=== PATIENT | female | born 1975 | race Caucasian/White ===

== ENCOUNTER 2018-08-28 11:38 | Observation (INO) | payer BC, MEDICAID, OTHER ==
[2018-08-28] VITALS (9 sets, daily range): BP systolic 87–118; BP diastolic 49–69
[~2018-08-28] VITALS: Ht 154.9 cm; Wt 92.3 kg
--- OUTSIDE RECORDS SUMMARY | 2018-08-28 11:45 | XMS REPORT ---
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 596425189 Problem Type 2 diabetes mellitus with other specified complication E11.69 Active 42402820 Problem Hyperlipemia E78.5 Active 00157102 Problem Anxiety F41.9 Active 10270955 Problem Postsurgical hypothyroidism E89.0 Active 28143289 Problem Obesity (BMI 30-39.9) E66.9 Active 310573297 ALLERGIES No Information ENCOUNTERS Encounter Location Date Diagnosis [facility] [address] [id number] [id number] Aug, [facility] [id number], [place] [id number] Jul, [address] [address] [id number], [place] [id number] May, [facility] [address] [facility] [address] [id number], [place] [address] May, Type 2 diabetes mellitus with other specified complication E11.69 ; rat exterminator current use of insulin Z79.4 ; Obesity (BMI 30-39.9) E66.9 and Dietary counseling Z71.3 [facility] [address] [id number], [place] [id number] Apr, Anxiety F41.9 [facility] [place] [address] [id number], [place] [address] Feb, Encounter for immunization Z23 [facility] [address] [id number], [place] [address] Feb, Uncontrolled type 2 diabetes mellitus without complication, without long-term current use of insulin E11.65 [facility] [address] [id number] [place] [id number] 17 Jan, 2018 [facility] [address] [id number], [place] [id number] 14 Jan, 2018 Uncontrolled type 2 diabetes mellitus without complication, without long-term current use of insulin E11.65 ; Hyperlipemia E78.5 ; Hypothyroidism, unspecified E03.9 ; Anxiety F41.9 ; Pain in right foot M79.671 and Pain of left foot M79.672 [facility] [address] [id number], [place] [id number] Jan, [facility] [address] [id number], [place] [id number] Oct, [facility] [address] [id number], [place] [address] Oct, BMI 40.0-44.9, adult Z68.41 ; Dysuria R30.0 ; Uncontrolled type 2 diabetes mellitus without complication, without long-term current use of insulin E11.65 ; Statin intolerance Z78.9 and Dietary counseling Z71.3 [facility] [address] [facility] [address] [id number], [place] [id number] Jul, BMI 40.0-44.9, adult Z68.41 ; Hyperlipemia E78.5 ; Hypothyroidism , unspecified E03.9 ; Uncontrolled type 2 diabetes mellitus without complication , without long-term current use of insulin E11.65 ; Statin intolerance Z78.9 ; Pain of left foot M79.672 and Pain in right foot M79.671 [facility] [address] [id number], [place] [id number] May, Type 2 diabetes mellitus with other specified complication E11.69 [facility] [address] [id number], [place] [address] Apr, [facility] [employer] [address] [id number], [place] [address] Apr, Type 2 diabetes mellitus with other specified complication E11.69 ; Type 2 diabetes mellitus with hyperglycemia E11.65 and skilled nursing current use of insulin Z79.4 [facility] [address] [id number], [place] [address] Mar, Hyperlipemia E78.5 ; Encounter for immunization Z23 and Uncontrolled type 2 diabetes mellitus without complication, without long-term current use of insulin E11.65 [facility] [address] [facility] [address] [id number], [place] [id number] 16 Feb, 2017 [facility] [address] [id number], [place] [address] 15 Jan, 2017 Type II diabetes mellitus E11.9 [facility] [address] [facility] [address] [id number], [place] [id number] Jan, Type II diabetes mellitus E11.9 [facility] [place] [address] [place] [address] AVE [id number], [place] [id number] Dec, [facility] [address] [place] [address] AVE [id number], [place] [address] Dec, Type II diabetes mellitus E11.9 ; Obesity (BMI 30-39.9) E66.9 and Dietary counseling Z71.3 [facility] [address] [id number], [place] [id number] Dec, Dental examination Z01.20 [facility] [place] [address] [place] [address] AVE [id number], [place] [id number] Nov, Acute cystitis without hematuria N30.00 [facility] [address] [facility] [id number], [place] [address] September, Dental examination Z01.20 [facility] [address] [id number], [place] [address] September, Type II diabetes mellitus E11.9 ; Hypothyroidism, unspecified E03.9 ; Hyperlipemia E78.5 ; Dietary counseling Z71.3 and Exercise counseling Z71.89 [facility] [address] [id number], [place] [id number] Jun, [facility] [address] [facility] [id number], [place] [address] May, [facility] [address] [id number], [place] [id number] May, [facility] [address] [id number], [place] [address] May, Type II diabetes mellitus E11.9 [facility] [address] [id number], [place] [address] May, [facility] [address] [id number], [place] [address] May, Postsurgical hypothyroidism E89.0 ; Type II diabetes mellitus E11.9 ; Hyperlipemia E78.5 and Acute non-recurrent maxillary sinusitis J01.[address] [facility] [address] [id number], [place] [address] Apr, [facility] [address] [id number], [place] [address] Mar, Acute nasopharyngitis J00 [facility] [address] [id number], [place] [id number] Jan, Type II diabetes mellitus E11.9 [facility] [address] [id number], [place] [id number] Jan, [facility] [address] [id number], [place] [address] Jan, Dysuria R30.0 ; Right flank pain R10.9 and Urinary frequency R35.0 [facility] [address] [id number], [place] [address] Jan, Adjustment disorder with anxious mood F43.22 [facility] [address] [id number], [place] [address] Jul, Acute non-recurrent pansinusitis J01.40 [facility] [address] [facility] [id number], [place] [address] Jun, [facility] [address] [id number], [place] [id number] Jun, Type II diabetes mellitus E11.9 ; Hyperlipemia E78.5 ; Hypothyroidism, unspecified E03.9 and Obesity E66.9 [facility] [address] [id number], [place] [id number] Feb, Anxiety F41.9 and Adverse reaction to SSRI antidepressant drug T43.225A [facility] HERRERAMAY [address] [place] [address] AVE [id number], [place] [address] Jan, [facility] Mijares[address] [place] [address] AVE [id number], [place] [id number] Jan, Irritability 799.22 ; Well woman exam with routine gynecological exam V72.31 ; Breast cancer screening V76.10 and History of hysterectomy for indication other than malignancy V88.01 [facility] HERRERAMAY [address] [place] [address] AVE [id number], [place] [id number] Dec, Type II diabetes mellitus 250.00 ; Postsurgical hypothyroidism 244.0 ; Right flank pain 789.09 and Obesity 278.00 [facility] HERRERAMAY [address] [place] [address] AVE [id number], [place] [address] September, [facility] [address]00565100[place], [place] [address] September, [facility] [address] [id number], [place] [address] Aug, [facility] [address] [place] [id number] Aug, [facility] [address] [place] [id number] Jul, [facility] [address] [place] [id number]- [address] Jul, [facility] [address] [id number], [place] [address]23- [address] Jul, [facility] [address] [place] [address] Jul, [facility] [place] [facility] [address] [id number] [place] [address] Apr, [facility] [place] [facility] [address] [id number] [place] [address] Apr, [facility] [place] [facility] [address] [id number] [place] [address] Mar, [facility] [place] [facility] [address] [id number] [place] [address] Mar, [facility] [place] [facility] [address] [id number] [place] [address]- [address] Mar, [facility] [place] [facility] [address] [id number] [place] [address]- [address] Mar, [facility] [place] [facility] [address] [id number] [place] [address]- [address] Feb, [facility] [place] [facility] [address] [id number] [place] [address]- [address] Feb, [facility] [place] [facility] [address] [id number] [place] [address]- [address] Feb, [facility] [place] [facility] [address] [facility] [id number] [place] [address]- [address] Feb, [facility] [place] [facility] [address] [id number] [place] [address]- [address] 08 Jan, 2013 [facility] [place] [facility] [address] [id number] [place] [address]- [address] 08 Sep, 2013 [facility] [place] [facility] [address] [id number] [place] [address]- [address] 05 Sep, 2013 [facility] [place] [facility] [address] [id number] [place] [address]- [address] Sep, 2013 [facility] [place] [facility] [address] [id number] [place] [address]- [address] Jan, [facility] [place] [facility] [address] [id number] [place] [address]- [address] Dec, [facility] [place] [facility] [address] [id number] [place] [address]- [address] Dec, [facility] [place] [facility] [address] [id number] [place] [address]- [address] Dec, [facility] [place] [facility] [address] [id number] [place] [address]- [address] Dec, [facility] [place] [facility] [address] [id number] [place] [address]- [address] Oct, [facility] [place] [facility] [address] [id number] [place] [address]- [address] Oct, [facility] [place] [facility] [address] [id number] [place] [address]- [address] Oct, [facility] [place] [facility] [address] [id number] [place] [address]- [address] Oct, [facility] [place] [facility] [address] [id number] [place] [address]- [address] September, [facility] [place] [facility] [address] [id number] [place] [address]- [address] September, [facility] [place] [facility] [address] [id number] [place] [address]- [address] September, [facility] [place] [facility] [address] [id number] [place] [address]- [address] September, [facility] [place] [facility] [address] [id number] [place] [address]- [address] September, [facility] [place] [facility] [address] [id number] [place] [address]- 7[address] September, [facility] [place] [facility] [address] [id number] [place] [address]- [address]598 September, [facility] [place] [facility] [address] [id number][place] [address]20232- [address] September, [facility] [address] [id number] [address] September, [facility] [address] [id number], [place] [address]- [address] September, [facility] [address] [id number], [place] [address] Aug, [facility] [address] [id number], [place] [address] Aug, [facility] [address] [id number], [place] [address] Aug, [facility] [address] [id number], [place] [address] Aug, [facility] [address] [id number], [place] [address] Aug, IMMUNIZATIONS No Known Immunizations SOCIAL HISTORY Never Assessed REASON FOR VISIT EMR-[facility] [place]AN OF CARE VITAL SIGNS MEDICATIONS Unknown Medications RESULTS No Results PROCEDURES No Known procedures INSTRUCTIONS MEDICATIONS ADMINISTERED No Known Medications MEDICAL (GENERAL) HISTORY Type Description Date Medical History Hypothyroidism Medical History type II diabetes Medical History hyperlipidemia Medical History thyroid cancer Surgical History cholecystectomy 1995 Surgical History tonsillectomy and adenoidectomy Surgical History thyroidectomy, complete 2000 Surgical History partial hysterectomy 04/15/12 Surgical History appendectomy 03/2014 Surgical History oral surgery Surgical History lithotripsy 1999 Surgical History dental surgery 2017 Hospitalization History Surgery(s) only Hospitalization History reaction to Paxil 01/31/15 Hospitalization History chest pains nothing was found
--- OUTSIDE RECORDS SUMMARY | 2018-08-28 11:45 | XMS REPORT ---
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 196957680 Problem Type 2 diabetes mellitus with other specified complication E11.69 Active 77589379 Problem Hyperlipemia E78.5 Active 74566652 Problem Anxiety F41.9 Active 35359389 Problem Postsurgical hypothyroidism E89.0 Active 41596581 Problem Obesity (BMI 30-39.9) E66.9 Active [id number] ALLERGIES No Information ENCOUNTERS Encounter Location Date Diagnosis [facility] [address] [id number] [place] [id number] Aug, [facility] [address] [id number] [place] [id number] Jul, [employer] [address] [id number] [place] [id number] May, [facility] [address] [id number] [place] [id number] May, Type 2 diabetes mellitus with other specified complication E11.69 ; middle or intermediate school principal current use of insulin Z79.4 ; Obesity (BMI 30-39.9) E66.9 and Dietary counseling Z71.3 [facility] [address] [id number] [place] [address] Apr, Anxiety F41.9 [facility] [place] [address] [id number] [place] [id number] Feb, Encounter for immunization Z23 [facility] [address] [id number] [place] [id number] Feb, Uncontrolled type 2 diabetes mellitus without complication, without long-term current use of insulin E11.65 [facility] [address] [id number] [place] [id number] 17 Jan, 2018 [facility] [address] [id number] [place] [address] 14 Jan, 2018 Uncontrolled type 2 diabetes mellitus without complication, without long-term current use of insulin E11.65 ; Hyperlipemia E78.5 ; Hypothyroidism, unspecified E03.9 ; Anxiety F41.9 ; Pain in right foot M79.671 and Pain of left foot M79.672 [facility] [address] [id number] [place] [id number] Jan, [facility] [address] [id number] [place] [id number] Oct, [facility] [address] [id number] [place] [address] Oct, BMI 40.0-44.9, adult Z68.41 ; Dysuria R30.0 ; Uncontrolled type 2 diabetes mellitus without complication, without long-term current use of insulin E11.65 ; Statin intolerance Z78.9 and Dietary counseling Z71.3 [facility] Richard Pauer - [address] [id number] [place] [address] Jul, BMI 40.0-44.9, adult Z68.41 ; Hyperlipemia E78.5 ; Hypothyroidism , unspecified E03.9 ; Uncontrolled type 2 diabetes mellitus without complication , without long-term current use of insulin E11.65 ; Statin intolerance Z78.9 ; Pain of left foot M79.672 and Pain in right foot M79.671 [facility] [address] [id number] [place] [id number] May, Type 2 diabetes mellitus with other specified complication E11.69 [facility] [place] [address] [id number] [place] [id number] Apr, [facility]ERSETorch GroupMAY [address] [id number] [place] [address] Apr, Type 2 diabetes mellitus with other specified complication E11.69 ; Type 2 diabetes mellitus with hyperglycemia E11.65 and USP current use of insulin Z79.4 [facility] [address] [id number] [place] [id number] Mar, Hyperlipemia E78.5 ; Encounter for immunization Z23 and Uncontrolled type 2 diabetes mellitus without complication, without long-term current use of insulin E11.65 [facility] [place] [address] [id number] [place] [id number] 16 Feb, 2017 [facility] [address] [id number] [place] [id number] 15 Jan, 2017 Type II diabetes mellitus E11.9 [facility] [place] [address] [id number] [place] [address] Jan, Type II diabetes mellitus E11.9 [facility] [place] [address] [place] [address] AVE [id number] [place] [id number] Dec, [facility] [place] Wireless Generation[address] [place] [address] AVE [id number] [place] [id number] Dec, Type II diabetes mellitus E11.9 ; Obesity (BMI 30-39.9) E66.9 and Dietary counseling Z71.3 [facility] [address] [id number] [place] [id number] Dec, Dental examination Z01.20 [facility] [place] [address] [place] [address] AVE [id number] [place] [id number] Nov, Acute cystitis without hematuria N30.00 [facility] [address] [facility] [id number][place] [address] September, Dental examination Z01.20 [facility] [address] [id number] [place] [id number] September, Type II diabetes mellitus E11.9 ; Hypothyroidism, unspecified E03.9 ; Hyperlipemia E78.5 ; Dietary counseling Z71.3 and Exercise counseling Z71.89 [facility] [address] [id number] [place] [address] Jun, [facility] [address] [facility] [id number], [place] [address] May, [facility] [address] [id number] [place] [id number] May, [facility] [address] [id number] [place] [address] May, Type II diabetes mellitus E11.9 [facility] [address] [id number], [place] [address] May, [facility] [address] [id number] [place] [address] May, Postsurgical hypothyroidism E89.0 ; Type II diabetes mellitus E11.9 ; Hyperlipemia E78.5 and Acute non-recurrent maxillary sinusitis J01.[address] [facility] [address] [id number] [place] [id number] Apr, [facility] [address] [id number] [place] [id number] Mar, Acute nasopharyngitis J00 [facility] [address] [id number] [place] [address] Jan, Type II diabetes mellitus E11.9 [facility] [address] [id number] [place] [id number] Jan, [facility] [address] [id number] [place] [address] Jan, Dysuria R30.0 ; Right flank pain R10.9 and Urinary frequency R35.0 [facility] [address] [id number] [place] [id number] Jan, Adjustment disorder with anxious mood F43.22 [facility] [address] [id number] [place] [address] Jul, Acute non-recurrent pansinusitis J01.40 [facility] [address] [facility] [id number], [place] [address] Jun, [facility] [address] [id number] [place] [id number] Jun, Type II diabetes mellitus E11.9 ; Hyperlipemia E78.5 ; Hypothyroidism, unspecified E03.9 and Obesity E66.9 [facility] [address] [id number] [place] [id number] Feb, Anxiety F41.9 and Adverse reaction to SSRI antidepressant drug T43.225A [facility] HERRERAMAY [address]ana[address] [place] [address] AVE [id number] [place] [id number] Jan, [facility] Mijares[address] [place] [address] AVE [id number] [place] [address] Jan, Irritability 799.22 ; Well woman exam with routine gynecological exam V72.31 ; Breast cancer screening V76.10 and History of hysterectomy for indication other than malignancy V88.01 [facility] HERRERAMAY [address]ana[address] [place] [address] AVE [id number] [place] [id number] Dec, Type II diabetes mellitus 250.00 ; Postsurgical hypothyroidism 244.0 ; Right flank pain 789.09 and Obesity 278.00 [facility] HERRERAMAY [address]ana[address] [place] [address] AVE [id number] [place] [id number] September, [facility] [address]00565100[place] [address] September, [facility] [address] [id number], [place] [address] Aug, [facility] [address] [place] [id number] Aug, [facility] [address] [place] [id number] Jul, [facility] [address] [place] [id number] Jul, [facility] [address] [id number] [address]- [address] Jul, [facility] [address] [address] Jul, [facility] [place] [facility] [address] [id number] [place] [address] Apr, [facility] [place] [facility] [address] [id number] [place] Apr, [facility] [place] [facility] [address] [id number] [place] [address] Mar, [facility] [place] [facility] [address] [id number] [place] [address] Mar, [facility] [place] [facility] [address] [id number] [place] [address] Mar, [facility] [place] [facility] [address] [id number] [place] [address]- [address] Mar, [facility] [place] [facility] [address] [id number] [place] [address]- [address] Feb, [facility] [place] [facility] [address] [id number] [place] [address]- [address] Feb, [facility] [place] [facility] [address] [id number] [place] [address] Feb, [facility] [place] [facility] [address] [facility] [id number] [place] [address]- [address] Feb, [facility] [place] [facility] [address] [id number] [place] [address] 08 Jan, 2013 [facility] [place] [facility] [address] [id number] [place] [address] 08 Sep, 2013 [facility] [place] [facility] [address] [id number] [place] [address]- [address] 05 Sep, 2013 [facility] [place] [facility] [address] [id number] [place] [address]- [address] Sep, 2013 [facility] [place] [facility] [address] [id number] [place] [address]- [address] Jan, [facility] [place] [facility] [address] [id number] [place] [address]- [address] Dec, [facility] [place] [facility] [address] [id number] [place] [address] Dec, [facility] [place] [facility] [address] [id number] [place] [address]- [address] Dec, [facility] [place] [facility] [address] [id number] [place] [address] Dec, [facility] [place] [facility] [address] [id number] [place] [address]- [address] Oct, [facility] [place] [facility] [address] [id number] [place] [address] Oct, [facility] [place] [facility] [address] [id number] [place] [address]- [address] Oct, [facility] [place] [facility] [address] [id number] [place] [address]- [address] Oct, [facility] [place] [facility] [address] [id number] [place] [address] September, [facility] [place] [facility] [address] [id number] [place] [address]- [address] September, [facility] [place] [facility] [address] [id number] [place] [address]- [address] September, [facility] [place] [facility] [address] [id number] [place] [address]- [address] September, [facility] [place] [facility] [address] [id number] [place] [address] September, [facility] [place] [facility] [address] [id number] [place] [address]- [address] September, [facility] [place] [facility] [address] [id number] [place] [address] September, [facility] [place] [facility] [address] [id number], [place] 480[address]- [address] September, [facility] [address] [id number], [place] [address] September, [facility] [address] [id number] [address] September, [facility] [address] [id number], [place] [address] Aug, [facility] [address] [id number], [place] [address] Aug, [facility] [address] [id number], [place] [address] Aug, [facility] [address] [id number], [place] [address] Aug, [facility] [address] [id number], [place] [address] Aug, IMMUNIZATIONS No Known Immunizations SOCIAL HISTORY Never Assessed REASON FOR VISIT EMR-[facility] PLAN OF CARE VITAL SIGNS MEDICATIONS Unknown [...]
--- OUTSIDE RECORDS SUMMARY | 2018-08-28 11:45 | XMS REPORT ---
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.4 Active 658759495 Problem Type 2 diabetes mellitus with other specified complication E11.69 Active 89229241 Problem Hyperlipemia E78.5 Active 12821837 Problem Anxiety F41.9 Active 64184499 Problem Postsurgical hypothyroidism E89.0 Active 12784529 Problem Obesity (BMI 30-39.9) E66.9 Active 420037389 ALLERGIES No Information ENCOUNTERS Encounter Location Date Diagnosis [facility] [address] [id number][place] [id number] Aug, [facility] [id number], [place] [id number] Jul, [address] [id number], [place] [id number] May, [facility] [address] [facility] [address] [id number], [place] [address] May, Type 2 diabetes mellitus with other specified complication E11.69 ; terminal make up operator current use of insulin Z79.4 ; Obesity (BMI 30-39.9) E66.9 and Dietary counseling Z71.3 [facility] [address] [id number], [place] [id number] Apr, Anxiety F41.9 [facility] [place] [address] [id number] [place] [address] Feb, Encounter for immunization Z23 [facility] [address] [id number], [place] [address] Feb, Uncontrolled type 2 diabetes mellitus without complication, without long-term current use of insulin E11.65 [facility] [address] [id number] [place] [id number] 17 Jan, 2018 [facility] [address] [id number], [place] [id number] 14 Jan, 2018 Uncontrolled type 2 diabetes mellitus without complication, without long-term current use of insulin E11.65 ; Hyperlipemia E78.5 ; Hypothyroidism, unspecified E03.9 ; Anxiety F41.9 ; Pain in right foot M79.671 and Pain of left foot M79.672 [facility] [address] [id number], [place] [id number] Jan, [facility] [address] [id number], [place] [id number] Oct, [facility] [address] [id number], [place] [address] Oct, BMI 40.0-44.9, adult Z68.41 ; Dysuria R30.0 ; Uncontrolled type 2 diabetes mellitus without complication, without long-term current use of insulin E11.65 ; Statin intolerance Z78.9 and Dietary counseling Z71.3 [facility] [address] [facility] [address] [id number], [place] [address] Jul, BMI 40.0-44.9, adult Z68.41 ; Hyperlipemia E78.5 ; Hypothyroidism , unspecified E03.9 ; Uncontrolled type 2 diabetes mellitus without complication , without long-term current use of insulin E11.65 ; Statin intolerance Z78.9 ; Pain of left foot M79.672 and Pain in right foot M79.671 [facility] [address] [id number], [place] [id number] May, Type 2 diabetes mellitus with other specified complication E11.69 [facility] [address] [id number], [place] [address] Apr, [facility] [address] [id number], [place] [id number] Apr, Type 2 diabetes mellitus with other specified complication E11.69 ; Type 2 diabetes mellitus with hyperglycemia E11.65 and FDC current use of insulin Z79.4 [facility] [address] [id number], [place] [id number] Mar, Hyperlipemia E78.5 ; Encounter for immunization Z23 and Uncontrolled type 2 diabetes mellitus without complication, without long-term current use of insulin E11.65 [facility] [address] [facility] [address] [id number], [place] [id number] 16 Feb, 2017 [facility] [address] [id number], [place] [address] 15 Jan, 2017 Type II diabetes mellitus E11.9 [facility] [address] [facility] [address] [id number], [place] [id number] Jan, Type II diabetes mellitus E11.9 [facility] [place] [address] [place] [address] AVE [id number], [place] [id number] Dec, [facility] [employer] [address] [place] [address] AVE [id number], [place] [id number] Dec, Type II diabetes mellitus E11.9 ; Obesity (BMI 30-39.9) E66.9 and Dietary counseling Z71.3 [facility] [address] [id number], [place] [id number] Dec, [facility] examination Z01.20 [facility] [place] [address] [place] [address] AVE [id number], [place] [id number] Nov, Acute cystitis without hematuria N30.00 [facility] [address] [facility] [id number], [place] [id number] September, Dental examination Z01.20 [facility] [address] [id number], [place] [address] September, Type II diabetes mellitus E11.9 ; Hypothyroidism, unspecified E03.9 ; Hyperlipemia E78.5 ; Dietary counseling Z71.3 and Exercise counseling Z71.89 [facility] [address] [id number], [place] [address] Jun, [facility] [address] [facility] [id number], [place] [address] May, [facility] [address] [id number], [place] [address] May, [facility] [address] [id number], [place] [id number] May, Type II diabetes mellitus E11.9 [facility] [address] [id number], [place] [address] May, [facility] [address] [id number], [place] [id number] May, Postsurgical hypothyroidism E89.0 ; Type II diabetes mellitus E11.9 ; Hyperlipemia E78.5 and Acute non-recurrent maxillary sinusitis J01.[address] [facility] [address] [id number], [place] [id number] Apr, [facility] [address] [id number], [place] [id number] Mar, Acute nasopharyngitis J00 [facility] [address] [id number], [place] [address]874056[address] Jan, Type II diabetes mellitus E11.9 [facility] [address] [id number], [place] [address]33125[address] Jan, [facility] [address] [id number], [place] [address]79[address] Jan, Dysuria R30.0 ; Right flank pain R10.9 and Urinary frequency R35.0 [facility] [address] [id number], [place] [address] Jan, Adjustment disorder with anxious mood F43.22 [facility] [address] [id number], [place] [address]2022 Jul, Acute non-recurrent pansinusitis J01.40 [facility] [address] [facility] [id number], [place] [address] Jun, [facility] [address] [id number], [place] [id number] Jun, Type II diabetes mellitus E11.9 ; Hyperlipemia E78.5 ; Hypothyroidism, unspecified E03.9 and Obesity E66.9 [facility] [address] [id number], [place] [id number] Feb, Anxiety F41.9 and Adverse reaction to SSRI antidepressant drug T43.225A [facility] HERRERAMAY [address] [place] [address] AVE [id number], [place] [id number] Jan, [facility] Mijares[address] [place] [address] AVE [id number], [place] [address]36895896 Jan, Irritability 799.22 ; Well woman exam with routine gynecological exam V72.31 ; Breast cancer screening V76.10 and History of hysterectomy for indication other than malignancy V88.01 [facility] HERRERAMAY [address] [place] [address] AVE [id number], [place] [id number] Dec, Type II diabetes mellitus 250.00 ; Postsurgical hypothyroidism 244.0 ; Right flank pain 789.09 and Obesity 278.00 [facility] HERRERAMAY [address] [place] [address] A[address] [id number], [place] [address]694[address] September, [facility] [address]00565100[place], [place] [address]- [address] September, [facility] [address] [id number], [place] [address]- [address] Aug, [facility] [address] [place] [id number] Aug, [facility] [address] [place] [id number]- 8670 Jul, [facility] [address] [place] [id number]- [address]25 Jul, [facility] [address] [id number], [place] [address]21- [address] Jul, [facility] [address] [place] [address] Jul, [facility] [place] [facility] [address] [id number] [place] [address] Apr, [facility] [place] [facility] [address] [id number] [place]- [address] Apr, [facility] [place] [facility] [address] [id number] [place] [address] Mar, [facility] [place] [facility] [address] [id number] [place] [address] Mar, [facility] [place] [facility] [address] [id number] [place] [address] Mar, [facility] [place] [facility] [address] [id number] [place] [address]- [address]77 Mar, [facility] [place] [facility] [address] [id number] [place] [address]- [address]241 Feb, [facility] [place] [facility] [address] [id number] [place] [address]- [address]20 Feb, [facility] [place] [facility] [address] [id number] [place] [address]- 36[address] Feb, [facility] [place] [facility] [address] [facility] [id number] [place] [address]- [address] Feb, [facility] [place] [facility] [address] [id number] [place] [address]- [address] 08 Jan, 2013 [facility] [place] [facility] [address] [id number] [place] [address]- [address] 08 Sep, 2013 [facility] [place] [facility] [address] [id number] [place] [address]- 1873 05 Sep, 2013 [facility] [place] [facility] [address] [id number] [place] [address]- [address] Sep, 2013 [facility] [place] [facility] [address] [id number] [place] [address]- 6216 Jan, [facility] [place] [facility] [address] [id number] [place] [address]- 8523 Dec, [facility] [place] [facility] [address] [id number] [place] [address]- [address]672 Dec, [facility] [place] [facility] [address] [id number] [place] [address]- [address]34 Dec, [facility] [place] [facility] [address] [id number] [place] [address]- [address]883 Dec, [facility] [place] [facility] [address] [id number] [place] [address]- [address]208 Oct, [facility] [place] [facility] [address] [id number] [place] [address]- 3578 Oct, [facility] [place] [facility] [address] [id number] [place] [address]- [address] Oct, [facility] [place] [facility] [address] [id number] [place] [address]- [address] Oct, [facility] [place] [facility] [address] [id number] [place] [address]- [address]874 September, [facility] [place] [facility] [address] [id number] [place] [address]- 9066 September, [facility] [place] [facility] [address] [id number] [place] [address]- 1624 September, [facility] [place] [facility] [address] [id number] [place] [address]- 4549 September, [facility] [place] [facility] [address] [id number] [place] [address]- 4815 September, [facility] [place] [facility] [address] [id number] [place] [address]- [address]43 September, [facility] [place] [facility] [address] [id number] [place] [address]- 8670 September, [facility] [place] [facility] [address] [id number], [place] [address]- [address] September, [facility] [address] [id number], [place] 160[address]- [address] September, [facility] [address] [id number], [place] [address]- [address] September, [facility] [address] [id number], [place] [address] Aug, [facility] [address]00565100[place], [place] [address] Aug, [facility] [address] [id number], [place] [address] Aug, [facility] [address]65100[place], [place] [address] Aug, [facility] [address] [id number], [place] [address] Aug, IMMUNIZATIONS No Known Immunizations SOCIAL HISTORY Never Assessed REASON FOR VISIT EMR-[facility] [place] OF CARE VITAL SIGNS MEDICATIONS Medication Instructions Dosage Frequency Start Date End Date Duration Status Amaryl 2 mg take by Oral route TAKE ONE TAB IN AM AND TAKE 1/2 TAB AT DINNER Jul, Active Synthroid 150 mcg take 1 tablet (150 mcg) by oral route once daily Jul, Active Lizette-D 24 Hour by oral route Dec, Active Pyridium 200 mg 1 tablet by Oral route 3 times per day for 3 day(s) Take Endosee meals for bladder pain Jan, Active Lisinopril 2.5 mg 1 tablet by Oral route 1 time per day Jul, Active Fioricet 50-325-40 mg 1-2 tablet by Oral route every 6 hours PRN not to exceed 6 tablets/day, 10/week Jan, Active Lovastatin 20 mg 1 tablet by Oral route 1 time per day Dec, Active Ibuprofen by oral route Dec, Active Cipro 500 mg 1 tablet by Oral route every 12 hours for 7 day(s) Jan Active RESULTS No Results PROCEDURES No Known procedures [...]
--- OUTSIDE RECORDS SUMMARY | 2018-08-28 11:46 | XMS REPORT ---
Author Author TOBY MILLS [facility] Address [address] [place] [address] Care Team Providers Care Redipper Name Role Phone TOBY MILLS Unavailable PROBLEMS Type Condition ICD9-CM Code GEH63-QA Code Onset Dates Condition Status SNOMED Code Problem Postsurgical hypothyroidism E89.0 Active 41449489 Problem Hypothyroidism, unspecified E03.9 Active 33096310 Problem Type II diabetes mellitus E11.9 Active 34019026 Problem Statin intolerance Z78.9 Active 01296378 Problem Hyperlipemia E78.5 Active 63373111 Problem Anxiety F41.9 Active 99243865 Problem Type 2 diabetes mellitus with hyperglycemia E11.65 Active 028990807291542 Problem Type 2 diabetes mellitus with other specified complication E11.69 Active 98489060 Problem Obesity (BMI 30-39.9) E66.9 Active 232572443 Problem Adjustment disorder with anxious mood F43.22 Active 19448343 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 789269030 Problem Uncontrolled type 2 diabetes mellitus without complication, without long-term current use of insulin E11.65 Active 180326171 ALLERGIES Substance Reaction Event Type Date Status Victoza Thyroid Cancer Drug Allergy Jan, Active Zoloft suicidal thoughts Drug Allergy Jan, Active Penicillin G Benzathine rash Drug Allergy Jan, Active Paxil suicidal thoughts Drug Allergy Jan, Active Metformin HCl chest pain Drug Allergy Jan, Active ENCOUNTERS Encounter Location Date Diagnosis [place] [id number] [facility] [address] [id number] [place] [id number] Jan, [address] [id number][place] [id number] Jan, Uncontrolled type 2 diabetes mellitus without complication, without long-term current use of insulin E11.65 ; Hyperlipemia E78.5 ; Hypothyroidism, unspecified E03.9 ; Anxiety F41.9 ; Pain in right foot M79.671 and Pain of left foot M79.672 [facility] [id number][place] [id number] Jan, ECTOR Isabel [facility] [address] [id number][place] [id number] Oct, [facility] [id number][place] [id number] Oct, BMI 40.0-44.9, adult Z68.41 ; Dysuria R30.0 ; Uncontrolled type 2 diabetes mellitus without complication, without long-term current use of insulin E11.65 ; Statin intolerance Z78.9 and Dietary counseling Z71.3 [facility] [id number][place] [id number] Jul, BMI 40.0-44.9, adult Z68.41 ; Hyperlipemia E78.5 ; Hypothyroidism , unspecified E03.9 ; Uncontrolled type 2 diabetes mellitus without complication , without long-term current use of insulin E11.65 ; Statin intolerance Z78.9 ; Pain of left foot M79.672 and Pain in right foot M79.671 [facility] [id number][place] [id number] May, Type 2 diabetes mellitus with other specified complication E11.69 [facility] [id number][place] [id number] Apr, [facility] [id number], [place] [id number] Apr, Type 2 diabetes mellitus with other specified complication E11.69 ; Type 2 diabetes mellitus with hyperglycemia E11.65 and snf current use of insulin Z79.4 [facility] [employer]Nicole [facility] [id number][place] [id number] Mar, Hyperlipemia E78.5 ; Encounter for immunization Z23 and Uncontrolled type 2 diabetes mellitus without complication, without long-term current use of insulin E11.65 [facility] [employer]Nicole [facility] [id number][place] [id number] Feb, [facility] [address] [id number], [place] [id number] Jan, Type II diabetes mellitus E11.9 [facility] [address] [id number], [place] [id number] Jan, Type II diabetes mellitus E11.9 [facility] [address] [id number], [place] [id number] Dec, [facility] [address] [id number][place] [id number] Dec, Type II diabetes mellitus E11.9 ; Obesity (BMI 30-39.9) E66.9 and Dietary counseling Z71.3 [facility] [address] [id number], [place] [id number] Dec, Dental examination Z01.20 [facility] [address] [id number], [place] [id number] Nov, Acute cystitis without hematuria N30.00 [facility] [address] [facility] [id number], [place] [id number] September, Dental examination Z01.20 [facility] [address] [id number], [place] [id number] September, Type II diabetes mellitus E11.9 ; Hypothyroidism, unspecified E03.9 ; Hyperlipemia E78.5 ; Dietary counseling Z71.3 and Exercise counseling Z71.89 [facility] [address] [id number], [place] [id number] Jun, [facility] [address] [id number], [place] [address] May, [facility] [address] [id number], [place] [id number] May, [facility] [address] [id number], [place] [id number] May, Type II diabetes mellitus E11.9 [facility] [address]00565100[place] [address] May, [facility] [address] [id number], [place] [id number] May, Postsurgical hypothyroidism E89.0 ; Type II diabetes mellitus E11.9 ; Hyperlipemia E78.5 and Acute non-recurrent maxillary sinusitis J01.[address] [facility] [address] [id number], [place] [id number] Apr, [facility] [address] [id number], [place] [id number] Mar, Acute nasopharyngitis J00 [facility] [address] [id number], [place] [id number] Jan, Type II diabetes mellitus E11.9 [facility] [address] [place] [address] AVE [id number], [place] [id number] Jan, [facility] [address] [id number], [place] [id number] Jan, Dysuria R30.0 ; Right flank pain R10.9 and Urinary frequency R35.0 [facility] [address] [id number], [place] [id number] Jan, Adjustment disorder with anxious mood F43.22 [facility] [place] [address] [place] [address] AVE [id number], [place] [id number] Jul, Acute non-recurrent pansinusitis J01.40 [facility] [address] [id number], [place] [address] Jun, [facility] [address] [id number], [place] [id number] Jun, Type II diabetes mellitus E11.9 ; Hyperlipemia E78.5 ; Hypothyroidism, unspecified E03.9 and Obesity E66.9 [facility] [address] [id number], [place] [id number] Feb, Anxiety F41.9 and Adverse reaction to SSRI antidepressant drug T43.225A [facility] [address] [facility] [address] [id number], [place] [id number] Jan, [facility] [address] [facility] [address] [id number], [place] [address] Jan, Irritability 799.22 ; Well woman exam with routine gynecological exam V72.31 ; Breast cancer screening V76.10 and History of hysterectomy for indication other than malignancy V88.01 [facility] [address] [facility] [address] [id number], [place] [id number] Dec, Type II diabetes mellitus 250.00 ; Postsurgical hypothyroidism 244.0 ; Right flank pain 789.09 and Obesity 278.00 [facility] [address]ana[address] [place] [address] AVE [id number], [place] [id number] September, [facility] [id number] [place] [address] September, [facility] [id number] [place] [address] Aug, [facility] [id number] [place] [address] Aug, [facility] [id number] [place] [address] Jul, [facility] [address]00565100[place], [place] [address] Jul, [facility] [id number] [place] [address] Jul, [facility] [id number] [place] [address]- 6586 Jul, [facility] [id number] [place] [address] Apr, [facility] [address]00565100[place], [place] [address] Apr, [facility] [id number] [place] [address] Mar, [facility] [place] [facility] [address] [id number] [place] [address] Mar, [facility] [place] [facility] [address] [id number] [place] [address] Mar, [facility] [place] [facility] [address] [id number] [place] [address] Mar, [facility] [place] [facility] [address] [id number] [place] [address] Feb, [facility] [place] [facility] [address] [id number] [place] [address] Feb, [facility] [place] [facility] [address] [id number] [place] [address] Feb, [facility] [place] [facility] [address] [id number] [place] [address]- [address] Feb, [facility] [place] [facility] [address] [id number] [place] [address] 08 Jan, 2014 [facility] [place] [facility] [address] [id number] [place] [address]- [address] 08 Jan, 2014 [facility] [place] [facility] [address] [id number] [place] [address]- [address] 05 Jan, 2014 [facility] [place] [facility] [address] [id number], [place] [address]- [address] Jan, [facility] [place] [facility] [address] [id number], [place] [address] Jan, [facility] [place] [facility] [address] [id number] [place] [address]- [address] Dec, [facility] [place] [facility] [address] [id number] [place] [address]- 64[address] Dec, [facility] [place] [facility] [address] [id number] [place] [address]- [address] Dec, [facility] [place] [facility] [address] [id number] [place] [address]- 6[address] Dec, [facility] [place] [facility] [address] [id number] [place] [address]- [address] Oct, [facility] [place] [facility] [address] [id number] [place] [address]- 5652 Oct, [facility] [place] [facility] [address] [id number] [place] [address]- [address] Oct, [facility] [place] [facility] [address] [id number] [place] [address]- 0989 Oct, [facility] [place] [facility] [address] [id number] [place] [address]- [address] September, [facility] [place] [facility] [address] [id number] [place] [address]- 1297 September, [facility] [place] [facility] [address] [id number] [place] [address]- 56[address] September, [facility] [place] [facility] [address] [id number] [place] [address]- 7255 September, [facility] [place] [facility] [address] [id number] [place] [address]- 7445 September, [facility] [place] [facility] [address] [id number] [place] [address]- 7934 September, [facility] [place] [facility] [address] [id number] [place] [address]- 0984 September, [facility] [place] [facility] [address] [id number] [place] [address]- 3941 September, [facility] [place] [facility] [address] [id number] [place] [address]- 7883 September, [facility] [place] [facility] [address] [id number] [place]- 7068 September, [facility] [place] [facility] [address] [id number] [place] [address]- 0776 Aug, [facility] [address] [facility] [id number], [place] [address] Aug, [facility] [address] [facility] [id number], [place] [address]- [address] Aug, [facility] [address] [facility] [id number], [place] [address] Aug, [facility] [address] [facility] [id number][place] [address] Aug, IMMUNIZATIONS No Known Immunizations SOCIAL HISTORY Never Assessed REASON FOR VISIT Diabetes f/u. MASSIMO ALMENDAREZ PLAN OF CARE Activity Details Follow Up 3 Months Reason:DM visit VITAL SIGNS Height 61 in 2018-01-16 Weight 198.2 lbs 2018-01-16 Temperature 99.1 degrees Fahrenheit 2018-01-16 Heart Rate 69 bpm 2018-01-16 Respiratory Rate 18 2018-01-16 Oximetry 98 % 2018-01-16 BMI 37.45 kg/m2 2018-01-16 Blood pressure systolic 120 mmHg 2018-01-16 Blood pressure diastolic 80 mmHg 2018-01-16 MEDICATIONS Medication Instructions Dosage Frequency Start Date End Date Duration Status HydrOXYzine Pamoate 50 mg Orally every 8 hrs 1 capsule as needed 8h Active OneTouch Delica Lancets Fine - CHECK BLOOD SUGAR ONCE DAILY. 90 Active Levemir FlexTouch 100 UNIT/ML Subcutaneous 2 times a day 12 units 12h Active NovoLog Flexpen 100 UNIT/ML Subcutaneous 3 times a day with meals (pt has sliding scale) sliding scale 3-10 units Active Glucometer 1 glucometer check blood sugar daily May, Active Tradjenta 5 mg Orally Once a day 1 tablet 24h Active Flonase Allergy Relief 50 MCG/ACT Nasally Once a day 1 spray in each nostril 24h Active Macrobid 100 mg Orally every 12 hrs 1 capsule with food 12h Jan, Jan, 10 days Active Ibuprofen by oral route Dec, Active Vitamin C ER 500 MG Orally Once a day 1 tablet 24h Active Welchol 625 MG TAKE 3 TABLETS TWICE DAILY WITH MEALS 2 times a day Orally Active Welchol 625 MG Orally 2 times a day TAKE 3 TABLETS TWICE DAILY WITH MEALS 12h Active OneTouch Ultra Test - CHECK BLOOD SUGAR THREE TIMES DAILY 33 Active Insulin Pen Needle 31G X 8 MM as directed Mar, Active Lisinopril 2.5 MG Orally Once a day 1 tablet by Oral route 1 time per day 24h Active Synthroid 150 MCG 1 tablet on an empty stomach in the morning Once a day Orally Active Synthroid 150 MCG Orally Once a day 1 tablet on an empty stomach in the morning 24h 90 days Active Voltaren 1 % Transdermal 2 times a day to feet as needed for pain apply 1gm 14 Jan, 2018 Active RESULTS Name Result Date Reference Range A1C (IN HOUSE) 2018-01-16 A1C IN HOUSE 5.6 4.3 - 5.6 % Previous A1c 8.3 Lot [id number] Exp date 11/2019 PROCEDURES Procedure Date Ordered Result Body Site GLYCATED HEMOGLOBIN TEST Jan 16, 2018 INSTRUCTIONS MEDICATIONS ADMINISTERED No Known Medications MEDICAL [...]
--- OUTSIDE RECORDS SUMMARY | 2018-08-28 11:46 | XMS REPORT ---
Author Author TOBY MILLS [facility] Address [address] [place] [address] Care Team Providers Care Retail Business Manager Name Role Phone TOBY MILLS Unavailable PROBLEMS Type Condition ICD9-CM Code OZE52-FN Code Onset Dates Condition Status SNOMED Code Problem Postsurgical hypothyroidism E89.0 Active 58454857 Problem Hypothyroidism, unspecified E03.9 Active 48042779 Problem Type II diabetes mellitus E11.9 Active 06873074 Problem Statin intolerance Z78.9 Active 51696708 Problem Hyperlipemia E78.5 Active 65075124 Problem Anxiety F41.9 Active 70371553 Problem Type 2 diabetes mellitus with hyperglycemia E11.65 Active 468548920858061 Problem Type 2 diabetes mellitus with other specified complication E11.69 Active 08410696 Problem Obesity (BMI 30-39.9) E66.9 Active 239950893 Problem Adjustment disorder with anxious mood F43.22 Active 04828998 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 408718315 Problem Uncontrolled type 2 diabetes mellitus without complication, without long-term current use of insulin E11.65 Active [id number] ALLERGIES No Information ENCOUNTERS Encounter Location Date Diagnosis [facility] [address] [id number][place] [id number] Jan, [facility] [address] [id number][place] [id number] 14 Jan, 2018 Uncontrolled type 2 diabetes mellitus without complication, without long-term current use of insulin E11.65 ; Hyperlipemia E78.5 ; Hypothyroidism, unspecified E03.9 ; Anxiety F41.9 ; Pain in right foot M79.671 and Pain of left foot M79.672 [facility] [place] [address] [facility] [address] [id number][place] [id number] Jan, [facility] [address] [id number][place] [id number] Oct, [facility] [address] [facility] [address] [id number][place] [id number] Oct, BMI 40.0-44.9, adult Z68.41 ; Dysuria R30.0 ; Uncontrolled type 2 diabetes mellitus without complication, without long-term current use of insulin E11.65 ; Statin intolerance Z78.9 and Dietary counseling Z71.3 [facility] [address] [id number][place] [id number] Jul, BMI 40.0-44.9, adult Z68.41 ; Hyperlipemia E78.5 ; Hypothyroidism , unspecified E03.9 ; Uncontrolled type 2 diabetes mellitus without complication , without long-term current use of insulin E11.65 ; Statin intolerance Z78.9 ; Pain of left foot M79.672 and Pain in right foot M79.671 [facility] [address] [address] [id number], [place] [id number] May, Type 2 diabetes mellitus with other specified complication E11.69 [facility] [address] [facility] [address] [id number], [place] [id number] Apr, [facility] [address] [address] [id number], [place] [id number] Apr, Type 2 diabetes mellitus with other specified complication E11.69 ; Type 2 diabetes mellitus with hyperglycemia E11.65 and 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.4 [facility] [address] [address] [id number], [place] [id number] Mar, Hyperlipemia E78.5 ; Encounter for immunization Z23 and Uncontrolled type 2 diabetes mellitus without complication, without long-term current use of insulin E11.65 [facility] [address] [id number], [place] [id number] Feb, [facility] [address] [id number], [place] [id number] Jan, Type II diabetes mellitus E11.9 [facility] [address] [id number][place] [id number] Jan, Type II diabetes mellitus E11.9 [facility] [address] [id number], [place] [id number] Dec, [facility] [address] [id number], [place] [address] Dec, Type II diabetes mellitus E11.9 ; Obesity (BMI 30-39.9) E66.9 and Dietary counseling Z71.3 [facility] [address] [id number], [place] [id number] Dec, Dental examination Z01.20 [facility] [address] [id number], [place] [id number] Nov, Acute cystitis without hematuria N30.00 [facility] [place] [facility] [address] [facility] [id number], [place] [id number] September, Dental examination Z01.20 [facility] [address] [id number], [place] [id number] September, Type II diabetes mellitus E11.9 ; Hypothyroidism, unspecified E03.9 ; Hyperlipemia E78.5 ; Dietary counseling Z71.3 and Exercise counseling Z71.89 [facility] [address] [id number], [place] [id number] Jun, [facility] [address] [id number], [place] [address] May, [facility] [address] [id number], [place] [id number] May, [facility] [address] [id number], [place] [id number] May, Type II diabetes mellitus E11.9 [facility] [address] [id number], [place] [address] May, [facility] [address] [id number], [place] [id number] May, Postsurgical hypothyroidism E89.0 ; Type II diabetes mellitus E11.9 ; Hyperlipemia E78.5 and Acute non-recurrent maxillary sinusitis J01.00 [facility] [place] [address] [facility] [address] [id number], [place] [id number] Apr, [facility] [address] [id number], [place] [id number] Mar, Acute nasopharyngitis J00 [facility] [address] [id number], [place] [id number] Jan, Type II diabetes mellitus E11.9 [facility] [address] [id number], [place] [id number] Jan, [facility] [address] [id number], [place] [id number] Jan, Dysuria R30.0 ; Right flank pain R10.9 and Urinary frequency R35.0 [facility] [address] [id number], [place] [id number] Jan, Adjustment disorder with anxious mood F43.[address] [id number], [place] [id number] Jul, Acute non-recurrent pansinusitis J01.40 [facility] [address] [facility] [id number], [place] [address] Jun, [facility] [address] [id number], [place] [id number] Jun, Type II diabetes mellitus E11.9 ; Hyperlipemia E78.5 ; Hypothyroidism, unspecified E03.9 and Obesity E66.[address] [id number], [place] [id number] Feb, Anxiety F41.9 and Adverse reaction to SSRI antidepressant drug T43.225A [facility] [address] [id number], [place] [id number] Jan, [facility] [address] [id number], [place] [id number] 24 Sep, 2015 Irritability 799.22 ; Well woman exam with routine gynecological exam V72.31 ; Breast cancer screening V76.10 and History of hysterectomy for indication other than malignancy V88.01 [facility] Ma[address] [facility] [address] [id number], [place] [id number] Dec, Type II diabetes mellitus 250.00 ; Postsurgical hypothyroidism 244.0 ; Right flank pain 789.09 and Obesity 278.00 [facility] [address] [place] [address] AVE [id number], [place] [id number] September, [facility] [id number] [place] [address] September, [facility] [address] [place] [id number] [place] [address] Aug, [facility] [id number] [place] [address] Aug, [facility] [id number] [place] [address]446- [address] Jul, [facility] [id number] [place] [address]- 9276 Jul, [facility] [id number] [place] [address]- 2847 Jul, [facility] [address]00565100[place], [place] [address] Jul, [facility] [address]65100[place], [place] [address] Apr, [facility] [address]00565100[place], [place] [address] Apr, [facility] [address] [place] [id number] [place] [address]- [address]166 Mar, [facility] [address]00565100[place], [place] [address] Mar, [facility] [id number] [place] [address] 9204 Mar, [facility] [place] [facility] [address] [id number] [place] [address] Mar, [facility] [place] [facility] [address] [id number] [place] [address] Feb, [facility] [place] [facility] [address] [id number] [place] [address]- [address] Feb, [facility] [place] [facility] [address] [id number] [place] [address]- [address] Feb, [facility] [place] [facility] [address] [id number] [place] [address]- 94[address] Feb, [facility] [place] [facility] [address] [id number] [place] [address]- [address] 08 Jan, 2014 [facility] [place] [facility] [address] [id number] [place] [address]- [address] 08 Jan, 2014 [facility] [place] [facility] [address] [id number] [place] [address]- [address] 05 Jan, 2014 [facility] [place] [facility] [address] [id number] [place] [address]- [address] 03 Jan, 2014 [facility] [place] [facility] [address] [id number] [place] [address]- [address] Jan, [facility] [place] [facility] [address] [id number], [place] [address]- [address] Dec, [facility] [place] [facility] [address] [id number], [place] [address]- [address] Dec, [facility] [place] [facility] [address] [id number] [place] [address]- 120[address] Dec, [facility] [place] [facility] [address] [id number], [place] [address]- [address] Dec, [facility] [place] [facility] [address] [id number] [place] [address]- [address] Oct, [facility] [place] [facility] [address] [id number] [place] [address]- 4112 Oct, [facility] [place] [facility] [address] [id number] [place] [address]- [address]277 Oct, [facility] [place] [facility] [address] [id number] [place] [address]- [address] Oct, [facility] [place] [facility] [address] [id number] [place] [address]- 6[address] September, [facility] [place] [facility] [address] [id number] [place] [address]- 7297 September, [facility] [place] [facility] [address] [id number] [place] [address]- 9259 September, [facility] [place] [facility] [address] [id number] [place] [address]- 2992 September, [facility] [address] [id number] [place] [address]- 9873 September, [facility] [place] [facility] [address] [id number] [place] [address]- 459[address] September, [facility] [place] [facility] [address] [id number] [place] [address]- [address] September, [facility] [place] [facility] [address] [id number] [place] [address]- [address] September, [facility] [place] [facility] [address] [id number] [place] [address]- 8162 September, [facility] [place] [facility] [address] [id number] [place] [address]- 7509 September, [facility] [place] [facility] [address] [id number] [place] [address]- 2724 Aug, [facility] [place] [facility] [address] [id number] [place] [address]- 4907 Aug, [facility] [place] [facility] [address] [id number] [place] [address]- 8573 Aug, [facility] [address] [facility] [id number] [place] [address]- [address] Aug, [facility] [address] [facility] [id number] [place] [address] Aug, IMMUNIZATIONS No Known Immunizations SOCIAL HISTORY Never Assessed REASON FOR VISIT PLAN OF CARE VITAL SIGNS MEDICATIONS Medication Instructions Dosage Frequency Start Date End Date Duration Status Macrobid 100 mg Orally every 12 hrs 1 capsule with food 12h Jan, Jan, 10 days Active RESULTS No Results PROCEDURES No Known [...]
--- OUTSIDE RECORDS SUMMARY | 2018-08-28 11:46 | XMS REPORT ---
Author Author TOBY MILLS [facility] Address [address] [place] [address] Care Team Providers Care Test Engineering Technician Name Role Phone TOBY MILLS Unavailable PROBLEMS Type Condition ICD9-CM Code OGC87-MD Code Onset Dates Condition Status SNOMED Code Problem Postsurgical hypothyroidism E89.0 Active 34069530 Problem Hypothyroidism, unspecified E03.9 Active 54082468 Problem Type II diabetes mellitus E11.9 Active 19794685 Problem Statin intolerance Z78.9 Active 52483787 Problem Hyperlipemia E78.5 Active 78606606 Problem Anxiety F41.9 Active 96836286 Problem Type 2 diabetes mellitus with hyperglycemia E11.65 Active 346438315283950 Problem Type 2 diabetes mellitus with other specified complication E11.69 Active 05361241 Problem Obesity (BMI 30-39.9) E66.9 Active 964912400 Problem Adjustment disorder with anxious mood F43.22 Active 43036321 Problem 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.4 Active 576830836 Problem Uncontrolled type 2 diabetes mellitus without complication, without long-term current use of insulin E11.65 Active 489908022 ALLERGIES No Information ENCOUNTERS Encounter Location Date Diagnosis [facility] [address] [id number][place] [id number] Jan, [facility] [address] [id number][place] [id number] 14 Jan, 2018 Uncontrolled type 2 diabetes mellitus without complication, without long-term current use of insulin E11.65 ; Hyperlipemia E78.5 ; Hypothyroidism, unspecified E03.9 ; Anxiety F41.9 ; Pain in right foot M79.671 and Pain of left foot M79.672 [facility] [place] [address] [facility] [address] [id number][place] [id number] Jan, [facility] [address] [id number][place] [id number] Oct, [facility] [address] [id number], [place] [id number] Oct, BMI 40.0-44.9, adult Z68.41 ; Dysuria R30.0 ; Uncontrolled type 2 diabetes mellitus without complication, without long-term current use of insulin E11.65 ; Statin intolerance Z78.9 and Dietary counseling Z71.3 [facility] [address] [id number][place] [id number] Jul, BMI 40.0-44.9, adult Z68.41 ; Hyperlipemia E78.5 ; Hypothyroidism , unspecified E03.9 ; Uncontrolled type 2 diabetes mellitus without complication , without long-term current use of insulin E11.65 ; Statin intolerance Z78.9 ; Pain of left foot M79.672 and Pain in right foot M79.671 [facility] The[facility] [address] [id number][place] [id number] May, Type 2 diabetes mellitus with other specified complication E11.69 [facility] [id number], [place] [id number] Apr, [facility] [id number], [place] [id number] Apr, Type 2 diabetes mellitus with other specified complication E11.69 ; Type 2 diabetes mellitus with hyperglycemia E11.65 and 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.4 [facility] [id number], [place] [id number] Mar, Hyperlipemia E78.5 ; Encounter for immunization Z23 and Uncontrolled type 2 diabetes mellitus without complication, without long-term current use of insulin E11.65 [facility] The[facility] [id number], [place] [id number] Feb, [facility] [address] [id number], [place] [id number] Jan, Type II diabetes mellitus E11.9 [facility] [address] [id number][place] [id number] Jan, Type II diabetes mellitus E11.[address] [facility] [address] [id number], [place] [id number] Dec, [facility] [address] [id number], [place] [id number] Dec, Type II diabetes mellitus E11.9 ; Obesity (BMI 30-39.9) E66.9 and Dietary counseling Z71.3 [facility] [address] [id number], [place] [id number] Dec, Dental examination Z01.20 [facility] [address] [id number], [place] [id number] Nov, Acute cystitis without hematuria N30.00 [facility] [address] [facility] [id number], [place] [address] September, Dental examination Z01.20 [facility] [address] [id number], [place] [id number] September, Type II diabetes mellitus E11.9 ; Hypothyroidism, unspecified E03.9 ; Hyperlipemia E78.5 ; Dietary counseling Z71.3 and Exercise counseling Z71.89 [facility] [address] [id number], [place] [id number] Jun, [facility] [address] [id number], [place] [address] May, [facility] [address] [id number], [place] [id number] May, [facility] [address] [id number], [place] [id number] May, Type II diabetes mellitus E11.9 [facility] [address] [id number], [place] [address] May, [facility] [address] [id number], [place] [id number] May, Postsurgical hypothyroidism E89.0 ; Type II diabetes mellitus E11.9 ; Hyperlipemia E78.5 and Acute non-recurrent maxillary sinusitis J01.00 [facility] [place] [address] [facility] [address] [id number], [place] [id number] Apr, [facility] [address] [id number], [place] [id number] Mar, Acute nasopharyngitis J00 [facility] [address] [id number], [place] [id number] Jan, Type II diabetes mellitus E11.9 [facility] [address] [id number], [place] [id number] Jan, [facility] [address] [id number], [place] [id number] Jan, Dysuria R30.0 ; Right flank pain R10.9 and Urinary frequency R35.0 [facility] [address] [id number], [place] [id number] Jan, Adjustment disorder with anxious mood F43.[address] [id number], [place] [id number] Jul, Acute non-recurrent pansinusitis J01.40 [facility] [address] [facility] [id number], [place] [address] Jun, [facility] [address] [id number], [place] [id number] Jun, Type II diabetes mellitus E11.9 ; Hyperlipemia E78.5 ; Hypothyroidism, unspecified E03.9 and Obesity E66.[address] [id number], [place] [id number] Feb, Anxiety F41.9 and Adverse reaction to SSRI antidepressant drug T43.225A [facility] [address] [id number], [place] [id number] Jan, [facility] [address] [id number], [place] [id number] 24 Sep, 2015 Irritability 799.22 ; Well woman exam with routine gynecological exam V72.31 ; Breast cancer screening V76.10 and History of hysterectomy for indication other than malignancy V88.01 [facility] Maame [facility] [id number], [place] [id number] Dec, Type II diabetes mellitus 250.00 ; Postsurgical hypothyroidism 244.0 ; Right flank pain 789.09 and Obesity 278.00 [facility] [address] [place] [address] AVE [id number], [place] [id number] September, [facility] [id number] [place] [address] September, [facility] [id number] [place] [address] Aug, [facility] [id number] [place] [address] Aug, [facility] [id number] [place] [address] Jul, [facility] [id number] [place] [address]- [address] Jul, [facility] [id number] [place] [address] Jul, [facility] [address]65100[place], [place] [address] Jul, [facility] [address]00565100[place], [place] [address]- [address] Apr, [facility] [address]65100[place], [place] [address] Apr, [facility] [id number] [place] [address] Mar, [facility] [address]65100[place], [place] [address] Mar, [facility] [id number] [place] [address] Mar, [facility] [place] [facility] [address] [id number] [place] [address] Mar, [facility] [place] [facility] [address] [id number] [place] [address] Feb, [facility] [place] [facility] [address] [id number] [place] [address] Feb, [facility] [place] [facility] [address] [id number] [place] [address] Feb, [facility] [place] [facility] [address] [id number] [place] [address] Feb, [facility] [place] [facility] [address] [id number] [place] [address]- [address] 08 Jan, 2014 [facility] [place] [facility] [address] [id number] [place] [address]- [address] 08 Jan, 2014 [facility] [place] [facility] [address] [id number] [place] [address]- [address] 05 Jan, 2014 [facility] [place] [facility] [address] [id number] [place] [address] 03 Jan, 2014 [facility] [place] [facility] [address] [id number] [place] [address]- 6[address] Jan, [facility] [place] [facility] [address] [id number], [place] [address]- [address] Dec, [facility] [place] [facility] [address] [id number], [place] [address] Dec, [facility] [place] [facility] [address] [id number] [place] [address]- [address]369 Dec, [facility] [place] [facility] [address] [id number], [place] [address] Dec, [facility] [place] [facility] [address] [id number] [place] [address]- [address] Oct, [facility] [place] [facility] [address] [id number] [place] [address] Oct, [facility] [place] [facility] [address] [id number] [place] [address] Oct, [facility] [place] [facility] [address] [id number] [place] [address]- 8868 Oct, [facility] [place] [facility] [address] [id number] [place] [address]- 2831 September, [facility] [place] [facility] [address] [id number] [place] [address]- 4757 September, [facility] [place] [facility] [address] [id number] [place] [address]- [address] September, [facility] [place] [facility] [address] [id number] [place] [address]58 September, [facility] [address] [id number] [place] [address]- [address] September, [facility] [place] [facility] [address] [id number] [place] [address]- 6[address] September, [facility] [place] [facility] [address] [id number] [place] [address]- 3354 September, [facility] [place] [facility] [address] [id number] [place] [address]- 8[address] September, [facility] [place] [facility] [address] [id number] [place] [address]- 7568 September, [facility] [place] [facility] [address] [id number] [place] [address]- 9839 September, [facility] [place] [facility] [address] [id number] [place] [address]- 8961 Aug, [facility] [place] [facility] [address] [id number] [place] [address]- 1278 Aug, [facility] [place] [facility] [address] [id number] [place] [address]- 1466 Aug, [facility] [address] [facility] [id number] [place] [address] Aug, [facility] [address] [facility] [id number] [place] [address] 267[address] Aug, IMMUNIZATIONS No Known Immunizations SOCIAL HISTORY Never Assessed REASON FOR VISIT ROS godoman PLAN OF CARE VITAL SIGNS MEDICATIONS Unknown [...] History lithotripsy 1999 Surgical History dental surgery 2016 Hospitalization History Surgery(s) only Hospitalization History reaction to Paxil 01/31/15 Hospitalization History chest pains nothing was found
--- OUTSIDE RECORDS SUMMARY | 2018-08-28 11:46 | XMS REPORT ---
Author Author TOBY MILLS [facility] Address [address] [place] [address] Care Team Providers Care Header Operator Name Role Phone TOBY MILLS Unavailable PROBLEMS Type Condition ICD9-CM Code ISI97-VU Code Onset Dates Condition Status SNOMED Code Problem Postsurgical hypothyroidism E89.0 Active 94156043 Problem Hypothyroidism, unspecified E03.9 Active 47193841 Problem Type II diabetes mellitus E11.9 Active 34360674 Problem Statin intolerance Z78.9 Active 36960040 Problem Hyperlipemia E78.5 Active 68560248 Problem Anxiety F41.9 Active 09339511 Problem Type 2 diabetes mellitus with hyperglycemia E11.65 Active 611068663477807 Problem Type 2 diabetes mellitus with other specified complication E11.69 Active 02003480 Problem Obesity (BMI 30-39.9) E66.9 Active 897903250 Problem Adjustment disorder with anxious mood F43.22 Active 05585541 Problem 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 774648445 Problem Uncontrolled type 2 diabetes mellitus without complication, without long-term current use of insulin E11.65 Active 035195810 ALLERGIES No Information ENCOUNTERS Encounter Location Date Diagnosis [facility] [id number] [id number] Feb, Uncontrolled type 2 diabetes mellitus without complication, without long-term current use of insulin E11.65 [facility] [id number][place] [id number] Jan, [facility] [address] [facility] [id number][place] [id number] 14 Jan, 2018 Uncontrolled type 2 diabetes mellitus without complication, without long-term current use of insulin E11.65 ; Hyperlipemia E78.5 ; Hypothyroidism, unspecified E03.9 ; Anxiety F41.9 ; Pain in right foot M79.671 and Pain of left foot M79.672 [facility] [address] [id number][place] [id number] Jan, [facility] [address] [facility] [facility] [facility] [address] [id number], [place] [id number] Oct, [facility] [address] [facility] [address] [id number], [place] [address] Oct, BMI 40.0-44.9, adult Z68.41 ; Dysuria R30.0 ; Uncontrolled type 2 diabetes mellitus without complication, without long-term current use of insulin E11.65 ; Statin intolerance Z78.9 and Dietary counseling Z71.3 [facility] [facility] [address] [id number], [place] [address] Jul, BMI 40.0-44.9, adult Z68.41 ; Hyperlipemia E78.5 ; Hypothyroidism , unspecified E03.9 ; Uncontrolled type 2 diabetes mellitus without complication , without long-term current use of insulin E11.65 ; Statin intolerance Z78.9 ; Pain of left foot M79.672 and Pain in right foot M79.671 [facility] YADIRA [place] [address] [facility] [address] [id number][place] [id number] May, Type 2 diabetes mellitus with other specified complication E11.69 [facility] [facility] [address] [id number], [place] [id number] Apr, [facility] [facility] [address] [id number], [place] [id number] Apr, Type 2 diabetes mellitus with other specified complication E11.69 ; Type 2 diabetes mellitus with hyperglycemia E11.65 and 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.4 [facility] [id number][place] [id number] Mar, Hyperlipemia E78.5 ; Encounter for immunization Z23 and Uncontrolled type 2 diabetes mellitus without complication, without long-term current use of insulin E11.65 [facility] [employer] [facility] [id number][place] [address] Feb, [facility] [address] [id number], [place] [id number] 15 Jan, 2017 Type II diabetes mellitus E11.9 [facility] [address] [id number], [place] [id number] Jan, Type II diabetes mellitus E11.9 [facility] [address] [id number], [place] [id number] Dec, [facility] [address] [id number], [place] [id number] Dec, Type II diabetes mellitus E11.9 ; Obesity (BMI 30-39.9) E66.9 and Dietary counseling Z71.3 [facility] [address] [id number], [place] [id number] Dec, Dental examination Z01.20 [facility] [address] [id number], [place] [id number] Nov, Acute cystitis without hematuria N30.00 [facility] [address] [facility] [id number], [place] [id number] September, Dental examination Z01.20 [facility] [address] [id number], [place] [id number] September, Type II diabetes mellitus E11.9 ; Hypothyroidism, unspecified E03.9 ; Hyperlipemia E78.5 ; Dietary counseling Z71.3 and Exercise counseling Z71.89 [facility] [address] [id number], [place] [id number] Jun, [facility] [address] [facility] [id number], [place] [address] May, [facility] [address] [id number], [place] [id number] May, [facility] [address] [id number], [place] [id number] May, Type II diabetes mellitus E11.9 [facility] [address] [id number], [place] [address] May, [facility] [address] [id number], [place] [id number] May, Postsurgical hypothyroidism E89.0 ; Type II diabetes mellitus E11.9 ; Hyperlipemia E78.5 and Acute non-recurrent maxillary sinusitis J01.00 [facility] [address] [id number], [place] [id number] Apr, [facility] [address] [id number], [place] [id number] Mar, Acute nasopharyngitis J00 [facility] [place] [address] [place] [address] AVE [id number], [place] [id number] Jan, Type II diabetes mellitus E11.9 [facility] [address] [facility] [address] [id number], [place] [address] Jan, [facility] [address] [id number], [place] [id number] Jan, Dysuria R30.0 ; Right flank pain R10.9 and Urinary frequency R35.0 [facility] [address] [facility] [address] [id number], [place] [id number] Jan, Adjustment disorder with anxious mood F43.22 [facility] [address] [id number], [place] [address] Jul, Acute non-recurrent pansinusitis J01.40 [facility] [address] [place] [address] [id number], [place] [address]33[address] Jun, [facility] [address] [id number], [place] [id number] Jun, Type II diabetes mellitus E11.9 ; Hyperlipemia E78.5 ; Hypothyroidism, unspecified E03.9 and Obesity E66.9 [facility] [address] [id number], [place] [address] Feb, Anxiety F41.9 and Adverse reaction to SSRI antidepressant drug T43.225A [facility] [address] [id number], [place] [id number] Jan, [facility] [address] [id number], [place] [id number] Jan, Irritability 799.22 ; Well woman exam with routine gynecological exam V72.31 ; Breast cancer screening V76.10 and History of hysterectomy for indication other than malignancy V88.01 [facility] HERRERAMAY [address] [facility] [facility] [facility] [address] [id number], [place] [id number] Dec, Type II diabetes mellitus 250.00 ; Postsurgical hypothyroidism 244.0 ; Right flank pain 789.09 and Obesity 278.00 [facility] MAY [address] [place] [address] AVE [id number], [place] [id number] September, [facility] [id number] [place] [address] September, [facility] [id number] [place] [address] Aug, [facility] [id number] [place] [address] Aug, [facility] [id number] [place] [address] Jul, [facility] [address] [id number], [place] [address] Jul, [facility] [id number] [place] [address] Jul, [facility] [address] [id number], [place] [address] Jul, [facility] [id number] [place] [address] Apr, [facility] [id number] [place] [address] Apr, [facility] [id number] [place] [address] Mar, [facility] [place] [facility] [address] [id number] [place] [address] Mar, [facility] [place] [facility] [address] [id number] [place] [address] Mar, [facility] [place] [facility] [address] [id number] [place] [address] Mar, [facility] [place] [facility] [address] [id number] [place] [address] Feb, [facility] [place] [facility] [address] [id number] [place] [address]- [address] Feb, [facility] [place] [facility] [address] [id number] [place] [address]- [address] Feb, [facility] [place] [facility] [address] [id number] [place] [address]47 Feb, [facility] [place] [facility] [address] [id number] [place] [address]- [address] 08 Jan, 2013 [facility] [place] [facility] [address] [id number] [place] [address]- [address] 08 Jan, 2014 [facility] [place] [facility] [address] [id number] [place] [address] 05 Jan, 2013 [facility] [place] [facility] [address] [id number] [place] [address]- [address] Jan, [facility] [place] [facility] [address] [id number] [place] [address]- 4689 Jan, [facility] [place] [facility] [address] [id number] [place] [address]- [address]164 Dec, [facility] [place] [facility] [address] [id number] [place] [address]- [address] Dec, [facility] [place] [facility] [address] [id number] [place] [address]99 Dec, [facility] [place] [facility] [address] [id number] [place] [address]- [address]70 Dec, [facility] [place] [facility] [address] [id number] [place] [address]- [address] Oct, [facility] [place] [facility] [address] [id number] [place] [address]- [address]27 Oct, [facility] [place] [facility] [address] [id number] [place] [address]- 8[address] Oct, [facility] [place] [facility] [address] [id number] [place] [address]- 77[address] Oct, [facility] [place] [facility] [address] [id number] [place] [address]- [address] September, [facility] [place] [facility] [address] [id number] [place] [address]- [address] September, [facility] [place] [facility] [address] [id number] [place] [address]- 65[address] September, [facility] [place] [facility] [address] [id number] [place] [address]- 1634 September, [facility] [place] [facility] [address] [id number] [place] [address]- [address] September, [facility] [place] [facility] [address] [id number] [place] [address]- 34[address] September, [facility] [place] [facility] [address] [id number] [place] [address]- 9837 September, [facility] [place] [facility] [address] [id number] [place] [address]- 7692 September, [facility] [place] [facility] [address] [id number] [place] [address]- 2[address] September, [facility] [place] [facility] [address] [id number] [place] [address]- 8830 September, [facility] [place] [facility] [address] [id number] [place] [address]- 9768 Aug, [facility] [place] [facility] [address] [id number] [place] [address]- [address] Aug, [facility] [address] [facility] [id number] [place] [address] Aug, [facility] [address] [facility] [id number], [place] [address] Aug, [facility] [address] [facility] [id number], [place] [address] Aug, IMMUNIZATIONS No Known Immunizations SOCIAL HISTORY Never Assessed REASON FOR VISIT refill pen needles PLAN OF CARE VITAL SIGNS MEDICATIONS Medication Instructions Dosage Frequency Start Date End Date Duration Status Insulin Pen Needle 32G X 4 MM as directed Mar, Active RESULTS No Results PROCEDURES No Known [...]
--- OUTSIDE RECORDS SUMMARY | 2018-08-28 11:47 | XMS REPORT ---
Author TOBY Izaguirre [facility] Address [address] [place] [address] Care Team Providers Care Housekeeper Nanny Name Role Phone TOBY MILLS Unavailable PROBLEMS Type Condition ICD9-CM Code BKT42-WM Code Onset Dates Condition Status SNOMED Code Problem Hyperlipemia E78.5 Active 35817808 Problem Statin intolerance Z78.9 Active 35192987 Problem Dental examination Z01.20 Active 438155541 Problem Adjustment disorder with anxious mood F43.22 Active 72658066 Problem Anxiety F41.9 Active 79869928 Problem Postsurgical hypothyroidism E89.0 Active 87425327 Problem Type II diabetes mellitus E11.9 Active 45754589 Problem Hypothyroidism, unspecified E03.9 Active 91520410 ALLERGIES Unknown Allergies SOCIAL HISTORY No smoking Hx information available PLAN OF CARE VITAL SIGNS MEDICATIONS Unknown Medications RESULTS No Results PROCEDURES No Known procedures IMMUNIZATIONS No Known Immunizations
--- OUTSIDE RECORDS SUMMARY | 2018-08-28 11:47 | XMS REPORT ---
Author Author TOBY MILLS [facility] Address [address] [place] [address] Care Team Providers Care Volleyball Commentator Name Role Phone TOBY MILLS Unavailable PROBLEMS Type Condition ICD9-CM Code UFF03-AS Code Onset Dates Condition Status SNOMED Code Problem Postsurgical hypothyroidism E89.0 Active 23682537 Problem Hypothyroidism, unspecified E03.9 Active 93847757 Problem Type II diabetes mellitus E11.9 Active 75393235 Problem Statin intolerance Z78.9 Active 87542436 Problem Hyperlipemia E78.5 Active 51356759 Problem Anxiety F41.9 Active 35480650 Problem Type 2 diabetes mellitus with hyperglycemia E11.65 Active 988282288431693 Problem Type 2 diabetes mellitus with other specified complication E11.69 Active 03501525 Problem Obesity (BMI 30-39.9) E66.9 Active 685003973 Problem Adjustment disorder with anxious mood F43.22 Active 02282979 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.4 Active 770235834 Problem Uncontrolled type 2 diabetes mellitus without complication, without long-term current use of insulin E11.65 Active 083604012 ALLERGIES Substance Reaction Event Type Date Status Victoza Thyroid Cancer Drug Allergy Oct, Active Zoloft suicidal thoughts Drug Allergy Oct, Active Penicillin G Benzathine rash Drug Allergy Oct, Active Paxil suicidal thoughts Drug Allergy Oct, Active Metformin HCl chest pain Drug Allergy Oct, Active ENCOUNTERS Encounter Location Date Diagnosis [facility] [address] [id number] [place] [id number] Jan, [facility] [address] [id number][place] [id number] Oct, [facility] [address] [id number], [place] [address] Oct, BMI 40.0-44.9, adult Z68.41 ; Dysuria R30.0 ; Uncontrolled type 2 diabetes mellitus without complication, without long-term current use of insulin E11.65 ; Statin intolerance Z78.9 and Dietary counseling Z71.[address] [facility] [address] [id number][place] [address] Jul, BMI 40.0-44.9, adult Z68.41 ; Hyperlipemia E78.5 ; Hypothyroidism , unspecified E03.9 ; Uncontrolled type 2 diabetes mellitus without complication , without long-term current use of insulin E11.65 ; Statin intolerance Z78.9 ; Pain of left foot M79.672 and Pain in right foot M79.[address] [facility] [address] [id number][place] [id number] May, Type 2 diabetes mellitus with other specified complication E11.[address] [facility] [address] [id number], [place] [id number] Apr, [facility] [address] [id number][place] [address] Apr, Type 2 diabetes mellitus with other specified complication E11.69 ; Type 2 diabetes mellitus with hyperglycemia E11.65 and half-way current use of insulin Z79.4 [facility] [address] [id number], [place] [id number] Mar, Hyperlipemia E78.5 ; Encounter for immunization Z23 and Uncontrolled type 2 diabetes mellitus without complication, without long-term current use of insulin E11.65 [facility] [address] [id number], [place] [id number] Feb, [facility] [address] [id number], [place] [id number] Jan, Type II diabetes mellitus E11.[address] [facility] [address] [id number], [place] [id number] Jan, Type II diabetes mellitus E11.[address] [facility] [address] [id number][place] [id number] Dec, [facility] [address] [id number], [place] [id number] Dec, Type II diabetes mellitus E11.9 ; Obesity (BMI 30-39.9) E66.9 and Dietary counseling Z71.3 [facility] [address] [id number][place] [id number] Dec, Dental examination Z01.20 [facility] [address] [id number], [place] [id number] Nov, Acute cystitis without hematuria N30.00 [facility] [address] [facility] [id number][place] [id number] September, Dental examination Z01.20 [facility] [address] [id number], [place] [id number] September, Type II diabetes mellitus E11.9 ; Hypothyroidism, unspecified E03.9 ; Hyperlipemia E78.5 ; Dietary counseling Z71.3 and Exercise counseling Z71.89 [facility] [address] [id number], [place] [id number] Jun, [facility] [address] [id number], [place] [address] May, [facility] [address] [id number], [place] [id number] May, [facility] [address] [id number], [place] [id number] May, Type II diabetes mellitus E11.9 [facility] [address] [facility] [id number], [place] [address] May, [facility] [address] [id number], [place] [id number] May, Postsurgical hypothyroidism E89.0 ; Type II diabetes mellitus E11.9 ; Hyperlipemia E78.5 and Acute non-recurrent maxillary sinusitis J01.00 [facility] [address] [id number], [place] [id number] Apr, [facility] [address] [id number], [place] [id number] Mar, Acute nasopharyngitis J00 [facility] [address] [id number], [place] [id number] Jan, Type II diabetes mellitus E11.9 [facility] [address] [place] [address] AVE [id number], [place] [id number] Jan, [facility] [address] [id number], [place] [address] Jan, Dysuria R30.0 ; Right flank pain R10.9 and Urinary frequency R35.[address] [id number], [place] [id number] Jan, Adjustment disorder with anxious mood F43.[address] [id number], [place] [id number] Jul, Acute non-recurrent pansinusitis J01.40 [facility] [address] [facility] [id number], [place] [address] Jun, [address] [id number], [place] [id number] Jun, Type II diabetes mellitus E11.9 ; Hyperlipemia E78.5 ; Hypothyroidism, unspecified E03.9 and Obesity E66.[address] [id number], [place] [address] Feb, Anxiety F41.9 and Adverse reaction to SSRI antidepressant drug T43.225A [facility] [address] [place] [address] AVE [id number], [place] [id number] Jan, [address] [id number], [place] [address] Jan, Irritability 799.22 ; Well woman exam with routine gynecological exam V72.31 ; Breast cancer screening V76.10 and History of hysterectomy for indication other than malignancy V88.[address] [id number], [place] [address] Dec, Type II diabetes mellitus 250.00 ; Postsurgical hypothyroidism 244.0 ; Right flank pain 789.09 and Obesity 278.00 [facility] [id number], [place] [id number] September, [facility] [address] [facility] [id number], [place] [address] September, [facility] [id number] [place] [address] Aug, [facility] [address] [facility] [id number], [place] [address] Aug, [facility] [id number] [place] [address] Jul, [facility] [address]65100[place], [place] [address] Jul, [facility] [address]65100[place], [place] [address] Jul, [facility] [address]65100[place], [place] [address] Jul, [facility] [address]65100[place], [place] [address] Apr, [facility] [address]65100[place], [place] [address] Apr, [facility] [address]65100[place], [place] [address] Mar, [facility] [address] [id number], [place] [address] Mar, [facility] [address]65100[place], [place] [address] Mar, [facility] [address] [id number], [place] [address] Mar, [facility] [address]65100[place], [place] [address] Feb, [facility] [place] [facility] [address] [id number] [place] [address] Feb, [facility] [place] [facility] [address] [id number] [place] [address] Feb, [facility] [place] [facility] [address] [id number] [place] [address] Feb, [facility] [place] [facility] [address] [id number] [place] [address] 08 Jan, 2014 [facility] [place] [facility] [address] [id number] [place] [address] 08 Jan, 2014 [facility] [place] [facility] [address] [id number] [place] [address] 05 Jan, 2014 [facility] [place] [facility] [address] [id number] [place] [address] Jan, [facility] [place] [facility] [address] [id number] [place] [address] Jan, [facility] [place] [facility] [address] [id number] [place] [address] Dec, [facility] [place] [facility] [address] [id number] [place] [address] Dec, [facility] [place] [facility] [address] [id number] [place] [address] Dec, [facility] [place] [facility] [address] [id number] [place] [address] Dec, [facility] [place] [facility] [address] [id number] [place] [address] Oct, [facility] [place] [facility] [address] [id number] [place] [address] Oct, [facility] [place] [facility] [address] [id number] [place] [address] Oct, [facility] [place] [facility] [address] [id number] [place] [address] Oct, [facility] [address] [id number] [place] [address] September, [facility] [address] [id number] [place] [address] September, [facility] [address] [id number] [place] [address] September, [facility] [address] [id number] [place] [address]- [address] September, [facility] [address] [id number] [place] [address] September, [facility] [address] [id number] [place] [address] September, [facility] [address] [id number] [place] [address]- [address] September, [facility] [address] [id number] [place] [address] September, [facility] [address] [id number] [place] [address]- [address] September, [facility] [address] [id number] [place] [address] September, [facility] [address] [id number] [place] [address]- [address] Aug, [facility] [address] [id number] [place] [address]- [address] Aug, [facility] [address] [id number] [place] [address] Aug, [facility] [address] [id number] [place] [address] Aug, [facility] [address] [id number] [place] [address] Aug, IMMUNIZATIONS No Known Immunizations SOCIAL HISTORY Never Assessed REASON FOR VISIT Diabetes follow up and thinks has UTI. Isidra huerta PLAN OF CARE Activity Details Follow Up 3 Months Reason:DM visit VITAL SIGNS Height 61 in 2017-10-07 Weight 216.9 lbs 2017-10-07 Temperature 98.8 degrees Fahrenheit 2017-10-07 Heart Rate 89 bpm 2017-10-07 Respiratory Rate 18 2017-10-07 BMI 40.98 kg/m2 2017-10-07 Blood pressure systolic 120 mmHg 2017-10-07 Blood pressure diastolic 88 mmHg 2017-10-07 MEDICATIONS Medication Instructions Dosage Frequency Start Date End Date Duration Status Insulin Pen Needle 31G X 8 MM as directed Mar, Active Vitamin C ER 500 MG Orally Once a day 1 tablet 24h Active Ibuprofen by oral route Dec, Active HydrOXYzine Pamoate 50 MG TAKE ONE CAPSULE BY MOUTH THREE TIMES DAILY 30 Active Synthroid 150 MCG 1 tablet on an empty stomach in the morning Once a day Orally Active Lisinopril 2.5 MG Orally Once a day 1 tablet by Oral route 1 time per day 24h Active Insulin Detemir 100 UNIT/ML Subcutaneous twice daily 12 units Mar, Active Welchol 625 MG TAKE 3 TABLETS TWICE DAILY WITH MEALS 2 times a day Orally Active OneTouch Delica Lancets Fine - CHECK BLOOD SUGAR ONCE DAILY. 90 Active OneTouch Ultra Test - CHECK BLOOD SUGAR ONCE DAILY. 90 Active NovoLog Flexpen 100 UNIT/ML Subcutaneous 3 times a day with meals (pt has sliding scale) sliding scale 3-10 units Apr, Active Glucometer 1 glucometer check blood sugar daily May, Active Naproxen 500 MG Orally every 12 hrs 1 tablet with food or milk as needed 12h Active Flonase Allergy Relief 50 MCG/ACT Nasally Once a day 1 spray in each nostril 24h Active Tradjenta 5 mg Orally Once a day 1 tablet 24h Active RESULTS No Results PROCEDURES Procedure Date Ordered Result Body Site GLYCATED HEMOGLOBIN TEST October 07, 2017 URINALYSIS, AUTO, W/O SCOPE October 07, 2017 LAB NOT BILLED BY [facility] October 07, 2017 INSTRUCTIONS MEDICATIONS ADMINISTERED No Known Medications MEDICAL [...]
--- OUTSIDE RECORDS SUMMARY | 2018-08-28 11:47 | XMS REPORT ---
Author Author TOBY MILLS [facility] Address [address] [place] [address] Care Team Providers Care Shop Tech Name Role Phone TOBY MILLS Unavailable PROBLEMS Type Condition ICD9-CM Code WLN93-RI Code Onset Dates Condition Status SNOMED Code Problem Postsurgical hypothyroidism E89.0 Active 78204902 Problem Hypothyroidism, unspecified E03.9 Active 95758356 Problem Type II diabetes mellitus E11.9 Active 10877338 Problem Statin intolerance Z78.9 Active 86461405 Problem Hyperlipemia E78.5 Active 73721018 Problem Anxiety F41.9 Active 98846076 Problem Type 2 diabetes mellitus with hyperglycemia E11.65 Active 998609799565817 Problem Type 2 diabetes mellitus with other specified complication E11.69 Active 31495683 Problem Obesity (BMI 30-39.9) E66.9 Active 293111440 Problem Adjustment disorder with anxious mood F43.22 Active 97423732 Problem terminologist current use of insulin Z79.4 Active 740408056 Problem Uncontrolled type 2 diabetes mellitus without complication, without long-term current use of insulin E11.65 Active 773431974 ALLERGIES No Information ENCOUNTERS Encounter Location Date Diagnosis [address] [id number] [place] [id number] Oct, [address] [id number] [place] [address] Jul, BMI 40.0-44.9, adult Z68.41 ; Hyperlipemia E78.5 ; Hypothyroidism , unspecified E03.9 ; Uncontrolled type 2 diabetes mellitus without complication , without long-term current use of insulin E11.65 ; Statin intolerance Z78.9 ; Pain of left foot M79.672 and Pain in right foot M79.[address] [id number] [place] [address] May, Type 2 diabetes mellitus with other specified complication E11.69 [facility] [address] [id number] [place], [place] [id number] Apr, [facility] [address] [id number] [place], [place] [address] Apr, Type 2 diabetes mellitus with other specified complication E11.69 ; Type 2 diabetes mellitus with hyperglycemia E11.65 and terminologist current use of insulin Z79.4 [facility] [address] [id number] [place] [address] Mar, Hyperlipemia E78.5 ; Encounter for immunization Z23 and Uncontrolled type 2 diabetes mellitus without complication, without long-term current use of insulin E11.65 [facility] [address] [id number] [place] [address] Feb, [facility] [address] [facility] [address] [id number] [place], [place] [address]93 Jan, Type II diabetes mellitus E11.9 [facility] [address] [id number] [place], [place] [address] Jan, Type II diabetes mellitus E11.9 [facility] [address] [facility] [address] [id number] [place], [place] [id number] Dec, [facility] [address] [facility] [address] [id number] [place] [address] Dec, Type II diabetes mellitus E11.9 ; Obesity (BMI 30-39.9) E66.9 and Dietary counseling Z71.3 [facility] [address] [id number] [place], [place] [id number] Dec, Dental examination Z01.20 [facility] [address] [id number] [place], [place] [id number] Nov, Acute cystitis without hematuria N30.00 [facility] [address] [facility] [id number] [place] [address] September, Dental examination Z01.20 [facility] [address] [id number] [place], [place] [address] September, Type II diabetes mellitus E11.9 ; Hypothyroidism, unspecified E03.9 ; Hyperlipemia E78.5 ; Dietary counseling Z71.3 and Exercise counseling Z71.89 [facility] [address] [id number] [place] [id number] Jun, [facility] [address] [facility] [id number] [address] May, [facility] [address] [id number] [place], [place] [id number] May, [facility] [address] [id number] [place], [place] [address] May, Type II diabetes mellitus E11.9 [facility] [address] [facility] [id number], [place] [address] May, [facility] [address] [id number] [place], [place] [address] May, Postsurgical hypothyroidism E89.0 ; Type II diabetes mellitus E11.9 ; Hyperlipemia E78.5 and Acute non-recurrent maxillary sinusitis J01.00 [facility] [address] [id number] [place], [place] [address] Apr, [facility] [address] [id number] [place], [place] [address] Mar, Acute nasopharyngitis J00 [facility] [address] [id number] [place], [place] [address]76 Jan, Type II diabetes mellitus E11.9 [facility] [address] [id number] [place], [place] [address] Jan, [facility] [address] [id number] [place], [place] [address]84376[address] Jan, Dysuria R30.0 ; Right flank pain R10.9 and Urinary frequency R35.0 [facility] [address] [id number] [place], [place] [address] Jan, Adjustment disorder with anxious mood F43.[address] [id number] [place], [place] [address] Jul, Acute non-recurrent pansinusitis J01.40 [facility] [address] [id number], [place] [address] Jun, [address] [id number] [place], [place] [id number] Jun, Type II diabetes mellitus E11.9 ; Hyperlipemia E78.5 ; Hypothyroidism, unspecified E03.9 and Obesity E66.[address] [id number] [place], [place] 570[address] Feb, Anxiety F41.9 and Adverse reaction to SSRI antidepressant drug T43.225A [address] [id number] [place] [address] Jan, [address] [id number] [place], [place] 958[address]3729 Jan, Irritability 799.22 ; Well woman exam with routine gynecological exam V72.31 ; Breast cancer screening V76.10 and History of hysterectomy for indication other than malignancy V88.[address] [id number] [place], [place] 8858397[address] Dec, Type II diabetes mellitus 250.00 ; Postsurgical hypothyroidism 244.0 ; Right flank pain 789.09 and Obesity 278.[address] [id number] [place], [place] 526[address]06 September, [facility] [address] [id number], [place] [address] September, [facility] [id number] [place] [address] 47[address] Aug, [facility] [address] [id number], [place] [address] Aug, [facility] [id number] [place] [address]- 8448 Jul, [facility] [place] [facility] [address] [id number] [place] [address] 10 Jul, 2014 [facility] [place] [facility] [address] [id number] [place] [address]- 6[address] Jul, [facility] [place] [facility] [address] [id number] [place] [address]- [address] Jul, [facility] [place] [facility] [address] [id number] [place] [address]36 Apr, [facility] [place] [facility] [address] [id number] [place] [address]- 6[address] Apr, [facility] [place] [facility] [address] [id number] [place] [address]- 5358 Mar, [facility] [place] [facility] [address] [id number] [place] [address]- 0591 Mar, [facility] [place] [facility] [address] [id number] [place] [address]- 35[address] Mar, [facility] [place] [facility] [address] [id number] [place] [address]- 0852 Mar, [facility] [place] [facility] [address] [id number] [place] [address]- [address]272 Feb, [facility] [place] [facility] [address] [id number] [place] [address]- [address] Feb, [facility] [place] [facility] [address] [id number] [place] [address]- 3260 Feb, [facility] [place] [facility] [address] [id number] [place] [address]- 39[address] Feb, [facility] [place] [facility] [address] [id number] [place] [address]- 00[address] 08 Jan, 2014 [facility] [place] [facility] [address] [id number] [place] [address]- 2266 08 Jan, 2014 [facility] [place] [facility] [address] [id number] [place] [address]- 6695 Jan, [facility] [place] [facility] [address] [id number] [place] [address]- 9831 Jan, [facility] [place] [facility] [address] [id number] [place] [address]- 6[address] Jan, [facility] [place] [facility] [address] [id number] [place] [address]- 6152 Dec, [facility] [place] [facility] [address] [id number] [place] [address]- 7240 Dec, [facility] [place] [facility] [address] [id number] [place] [address]- 5578 Dec, [facility] [place] [facility] [address] [id number] [place] [address]- 65[address] Dec, [facility] [place] [facility] [address] [id number] [place] [address]- 7177 Oct, [facility] [place] [facility] [address] [id number] [place] [address]- 7583 Oct, [facility] [place] [facility] [address] [id number] [place] [address]- 265[address] Oct, [facility] [place] [facility] [address] [id number] [place] [address]- 9837 Oct, [facility] [place] [facility] [address] [id number] [place] [address]- 7605 September, [facility] [place] [facility] [address] [id number] [place] [address]- 3242 September, [facility] [place] [facility] [address] [id number] [place] [address]- 6553 September, [facility] [place] [facility] [address] [id number] [place] [address]- 6158 September, [facility] [place] [facility] [address] [id number] [place] [address]- 2412 September, [facility] [address] [id number], [place] [address] September, [facility] [address] [facility] [id number], [place] [address]- [address]12 September, [facility] [address] [facility] [id number], [place] 94[place]- [address]269 September, [facility] [address] [facility] [id number], [place] [address]- 2924 September, [facility] [address] [facility] [id number], [place] [address]- [address] September, [facility] [address]65100[place], [place] [address]- 360[address] Aug, [facility] [address]65100[place], [place] [address] Aug, [facility] [address] [id number], [place] [address] 4026 Aug, [facility] [address] [id number], [place] [address] Aug, [facility] [address] [id number], [place] [address] Aug, IMMUNIZATIONS No Known Immunizations SOCIAL HISTORY Never Assessed REASON FOR VISIT Refill request PLAN OF CARE VITAL SIGNS MEDICATIONS Unknown [...]
--- OUTSIDE RECORDS SUMMARY | 2018-08-28 11:47 | XMS REPORT ---
Author Author TOBY MILLS [facility] Address [address] [place] [address] Care Team Providers Care Inspector Conveyor Line Name Role Phone TOBY MILLS Unavailable PROBLEMS Type Condition ICD9-CM Code GKS19-DG Code Onset Dates Condition Status SNOMED Code Problem Statin intolerance Z78.9 Active 35482623 Problem Hyperlipemia E78.5 Active 41503239 Problem Postsurgical hypothyroidism E89.0 Active 39475891 Problem Dental examination Z01.20 Active 912837774 Problem Obesity (BMI 30-39.9) E66.9 Active 761202310 Problem Hypothyroidism, unspecified E03.9 Active 48233066 Problem Anxiety F41.9 Active 51312598 Problem Adjustment disorder with anxious mood F43.22 Active 12421264 Problem Type II diabetes mellitus E11.9 Active 98532293 ALLERGIES Unknown Allergies SOCIAL HISTORY No smoking Hx information available PLAN OF CARE VITAL SIGNS MEDICATIONS Unknown Medications RESULTS No Results PROCEDURES No Known procedures IMMUNIZATIONS No Known Immunizations
--- OUTSIDE RECORDS SUMMARY | 2018-08-28 11:47 | XMS REPORT ---
Author Author TOBY MILLS [facility] Address [address] [place] [address] Care Team Providers Care Hardware Installation Coordinator Name Role Phone TOBY MILLS Unavailable PROBLEMS Type Condition ICD9-CM Code JLS58-BQ Code Onset Dates Condition Status SNOMED Code Problem Postsurgical hypothyroidism E89.0 Active 78421459 Problem Hypothyroidism, unspecified E03.9 Active 27573291 Problem Type II diabetes mellitus E11.9 Active 80002975 Problem Statin intolerance Z78.9 Active 16062569 Problem Hyperlipemia E78.5 Active 45712847 Problem Anxiety F41.9 Active 12302202 Problem Type 2 diabetes mellitus with hyperglycemia E11.65 Active 257136263651757 Problem Type 2 diabetes mellitus with other specified complication E11.69 Active 35274195 Problem Obesity (BMI 30-39.9) E66.9 Active 080416489 Problem Adjustment disorder with anxious mood F43.22 Active 62548154 Problem 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.4 Active 594849979 Problem Uncontrolled type 2 diabetes mellitus without complication, without long-term current use of insulin E11.65 Active 476729343 ALLERGIES No Information ENCOUNTERS Encounter Location Date Diagnosis [facility] [address] [id number] [id number] Jan, [facility] [address] [id number], [place] [address] Oct, [facility] [address] [id number], [place] [address] Oct, BMI 40.0-44.9, adult Z68.41 ; Dysuria R30.0 ; Uncontrolled type 2 diabetes mellitus without complication, without long-term current use of insulin E11.65 ; Statin intolerance Z78.9 and Dietary counseling Z71.3 [facility] [address] [id number][place] [address] Jul, BMI 40.0-44.9, adult Z68.41 ; Hyperlipemia E78.5 ; Hypothyroidism , unspecified E03.9 ; Uncontrolled type 2 diabetes mellitus without complication , without long-term current use of insulin E11.65 ; Statin intolerance Z78.9 ; Pain of left foot M79.672 and Pain in right foot M79.[address] [facility] [address] [id number], [place] [address] May, Type 2 diabetes mellitus with other specified complication E11.[address] [facility] [address] [id number], [place] [address] Apr, [facility] [address] [id number], [place] [address] Apr, Type 2 diabetes mellitus with other specified complication E11.69 ; Type 2 diabetes mellitus with hyperglycemia E11.65 and MCC current use of insulin Z79.4 [facility] [address] [id number], [place] [address] Mar, Hyperlipemia E78.5 ; Encounter for immunization Z23 and Uncontrolled type 2 diabetes mellitus without complication, without long-term current use of insulin E11.65 [facility] [address] [facility] [address] [id number], [place] [address] Feb, [facility] [address] [facility] [address] [id number], [place] [address] Jan, Type II diabetes mellitus E11.9 [facility] [address] [id number], [place] [address] Jan, Type II diabetes mellitus E11.9 [facility] [address] [id number], [place] 1886[address] Dec, [facility] [address] [id number], [place] [address] Dec, Type II diabetes mellitus E11.9 ; Obesity (BMI 30-39.9) E66.9 and Dietary counseling Z71.3 [facility] [address] [id number], [place] [address] Dec, Dental examination Z01.20 [facility] [address] [id number], [place] [address]87[address] Nov, Acute cystitis without hematuria N30.00 [facility] [address] [facility] [id number], [place] [address] September, Dental examination Z01.20 [facility] [address] [id number], [place] 84[address]05[address] September, Type II diabetes mellitus E11.9 ; Hypothyroidism, unspecified E03.9 ; Hyperlipemia E78.5 ; Dietary counseling Z71.3 and Exercise counseling Z71.89 [facility] [address] [id number], [place] 9[address]350736 Jun, [facility] [address] [id number], [place] [address]- [address] May, [facility] [address] [id number], [place] [address] May, [facility] [address] [id number], [place] 8[address]184381 May, Type II diabetes mellitus E11.9 [facility] [address] [facility] [id number], [place] [address]- [address]46 May, [facility] [address] [id number], [place] [address]38[address] May, Postsurgical hypothyroidism E89.0 ; Type II diabetes mellitus E11.9 ; Hyperlipemia E78.5 and Acute non-recurrent maxillary sinusitis J01.00 [facility] [address] [id number], [place] 60[address] Apr, [facility] [address] [id number], [place] 98[address]57168 Mar, Acute nasopharyngitis J00 [facility] [address] [id number], [place] 782875491 Jan, Type II diabetes mellitus E11.[address] [id number], [place] [address]606[address] Jan, [address] [id number], [place] 2592[address] Jan, Dysuria R30.0 ; Right flank pain R10.9 and Urinary frequency R35.[address] [id number], [place] 152982347 Jan, Adjustment disorder with anxious mood F43.[address] [id number], [place] 80[address] Jul, Acute non-recurrent pansinusitis J01.40 [facility] [address] [facility] [id number], [place] 969756- [address]196 Jun, [address] [id number], [place] 308043896 Jun, Type II diabetes mellitus E11.9 ; Hyperlipemia E78.5 ; Hypothyroidism, unspecified E03.9 and Obesity E66.[address] [id number], [place] 75[address]678[address] Feb, Anxiety F41.9 and Adverse reaction to SSRI antidepressant drug T43.225A [address] [id number], [place] 465773[address] Jan, [address] [id number], [place] 616029948 Jan, Irritability 799.22 ; Well woman exam with routine gynecological exam V72.31 ; Breast cancer screening V76.10 and History of hysterectomy for indication other than malignancy V88.[address] [id number], [place] 65[address]08996 Dec, Type II diabetes mellitus 250.00 ; Postsurgical hypothyroidism 244.0 ; Right flank pain 789.09 and Obesity 278.[address] [id number], [place] [address] September, [facility] [place] [facility] [address] [id number] [place] [address]- 8781 September, [facility] [place] [facility] [address] [id number] [place] [address]- 1076 Aug, [facility] [place] [facility] [address] [id number] [place] [address]- 5659 Aug, [facility] [place] [facility] [address] [id number] [place] [address]- 6268 Jul, [facility] [place] [facility] [address] [id number] [place] [address]- 4548 Jul, [facility] [place] [facility] [address] [id number] [place] [address]- 0837 Jul, [facility] [place] [facility] [address] [id number] [place] [address]- 7069 Jul, [facility] [place] [facility] [address] [id number] [place] [address]- 9361 Apr, [facility] [place] [facility] [address] [id number] [place] [address]- 5934 Apr, [facility] [place] [facility] [address] [id number] [place] [address]- 2133 Mar, [facility] [place] [facility] [address] [id number] [place] [address]- 3616 Mar, [facility] [place] [facility] [address] [id number] [place] [address]- 7457 Mar, [facility] [place] [facility] [address] [id number] [place] [address]- 4810 Mar, [facility] [place] [facility] [address] [id number] [place] [address]- 6387 Feb, [facility] [place] [facility] [address] [id number] [place] [address] Feb, [facility] [place] [facility] [address] [id number] [place] [address]- 2420 Feb, [facility] [place] [facility] [address] [id number] [place] [address]- 1863 Feb, [facility] [place] [facility] [address] [id number] [place] [address]- 8676 08 Jan, 2014 [facility] [place] [facility] [address] [id number] [place] [address]- 3520 Jan, [facility] [place] [facility] [address] [id number] [place] [address]- 9048 05 Jan, 2014 [facility] [place] [facility] [address] [id number] [place] [address]- 3263 Jan, [facility] [place] [facility] [address] [id number] [place] [address]- 7805 Jan, [facility] [place] [facility] [address] [id number] [place] [address]- 1153 Dec, [facility] [place] [facility] [address] [id number] [place] [address]- 4550 Dec, [facility] [place] [facility] [address] [id number] [place] [address]- 7389 Dec, [facility] [place] [facility] [address] [id number] [place] [address]- 4392 Dec, [facility] [place] [facility] [address] [id number] [place] [address]- 7754 Oct, [facility] [place] [facility] [address] [id number] [place] [address]- 9958 Oct, [facility] [place] [facility] [address] [id number] [place] [address]- 3809 Oct, [facility] [place] [facility] [address] [id number] [place] [address]- 1252 Oct, [facility] [place] [facility] [address] [id number] [place] [address]- 7565 September, [facility] [place] [facility] [address] [facility] [id number], [place] [address]- 4605 September, [facility] [address] [facility] [id number], [place] [address]- 6546 September, [facility] [address] [facility] [id number], [place] [address] September, [facility] [address] [facility] [id number] [address] September, [facility] [address] [facility] [id number], [place] [address] September, [facility] [address] [facility] [id number] [address] September, [facility] [address] [facility] [id number], [place] [address] September, [facility] [id number], [place] [address] September, [facility] [address] [id number], [place] [address] September, [facility] [id number], [place] [address] Aug, [facility] [address] [id number], [place] [address] Aug, [facility] [address] [id number], [place] [address] Aug, [facility] [address] [facility] [id number] [address] Aug, [facility] [address] [id number], [place] [address] Aug, IMMUNIZATIONS No Known Immunizations SOCIAL HISTORY Never Assessed REASON FOR VISIT phone call PLAN OF CARE VITAL SIGNS MEDICATIONS Medication Instructions Dosage Frequency Start Date End Date Duration Status Bactrim DS 800-160 MG Orally Twice a day 1 tablet 12h Oct,Oct 10 day(s) Active RESULTS No Results PROCEDURES No Known [...]
--- OUTSIDE RECORDS SUMMARY | 2018-08-28 11:48 | XMS REPORT ---
Author Author TOBY MILLS [facility] Address [address] [place] [address] Care Team Providers Care Second Chef Name Role Phone TOBY MILLS Unavailable PROBLEMS Type Condition ICD9-CM Code KSA04-ST Code Onset Dates Condition Status SNOMED Code Problem Postsurgical hypothyroidism E89.0 Active 39386088 Problem Hypothyroidism, unspecified E03.9 Active 79837918 Problem Type II diabetes mellitus E11.9 Active 36532822 Problem Statin intolerance Z78.9 Active 55024067 Problem Hyperlipemia E78.5 Active 52442454 Problem Anxiety F41.9 Active 77390052 Problem Type 2 diabetes mellitus with hyperglycemia E11.65 Active 542955724616959 Problem Type 2 diabetes mellitus with other specified complication E11.69 Active 95693744 Problem Obesity (BMI 30-39.9) E66.9 Active 822967361 Problem Adjustment disorder with anxious mood F43.22 Active 13854638 Problem 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.4 Active 823529337 Problem Uncontrolled type 2 diabetes mellitus without complication, without long-term current use of insulin E11.65 Active 740027838 ALLERGIES Substance Reaction Event Type Date Status Victoza Thyroid Cancer Drug Allergy Apr, Active Zoloft suicidal thoughts Drug Allergy Apr, Active Penicillin G Benzathine rash Drug Allergy Apr, Active Paxil suicidal thoughts Drug Allergy Apr, Active Metformin HCl chest pain Drug Allergy Apr, Active ENCOUNTERS Encounter Location Date Diagnosis [address] [id number] [place] [id number] Oct, [address] [id number], [place] [id number] Oct, BMI 40.0-44.9, adult Z68.41 ; Dysuria R30.0 ; Uncontrolled type 2 diabetes mellitus without complication, without long-term current use of insulin E11.65 ; Statin intolerance Z78.9 and Dietary counseling Z71.3 [facility] [address] [id number][place] [id number] Jul, BMI 40.0-44.9, adult Z68.41 ; Hyperlipemia E78.5 ; Hypothyroidism , unspecified E03.9 ; Uncontrolled type 2 diabetes mellitus without complication , without long-term current use of insulin E11.65 ; Statin intolerance Z78.9 ; Pain of left foot M79.672 and Pain in right foot M79.[address] [facility] [address] [id number][place] [id number] May, Type 2 diabetes mellitus with other specified complication E11.[address] [facility] [address] [id number][place] [id number] Apr, [facility] [address] [facility] [address] [id number][place] [id number] Apr, Type 2 diabetes mellitus with other specified complication E11.69 ; Type 2 diabetes mellitus with hyperglycemia E11.65 and 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.4 [facility] [employer] [facility] [address] [id number], [place] [address] Mar, Hyperlipemia E78.5 ; Encounter for immunization Z23 and Uncontrolled type 2 diabetes mellitus without complication, without long-term current use of insulin E11.65 [facility] [address] [facility] [address] [id number], [place] [id number] Feb, [facility] [address] [id number], [place] [id number] Jan, Type II diabetes mellitus E11.9 [facility] [address] [id number], [place] [id number] Jan, Type II diabetes mellitus E11.9 [facility] [address] [id number][place] [id number] Dec, [facility] [address] [id number], [place] [id number] Dec, Type II diabetes mellitus E11.9 ; Obesity (BMI 30-39.9) E66.9 and Dietary counseling Z71.3 [facility] [address] [id number] [place] [address] Dec, Dental examination Z01.20 [facility] [address] [id number] [place] [id number] Nov, Acute cystitis without hematuria N30.00 [facility] [address] [facility] [id number], [place] [id number] September, Dental examination Z01.20 [facility] [address] [id number], [place] [id number] September, Type II diabetes mellitus E11.9 ; Hypothyroidism, unspecified E03.9 ; Hyperlipemia E78.5 ; Dietary counseling Z71.3 and Exercise counseling Z71.89 [facility] [address] [id number], [place] [id number] Jun, [facility] [address] [id number], [place] [address] May, [facility] [address] [id number], [place] [id number] May, [facility] [address] [id number], [place] [address] May, Type II diabetes mellitus E11.9 [facility] [address] [facility] [id number], [place] [address] May, [facility] [address] [id number], [place] [id number] May, Postsurgical hypothyroidism E89.0 ; Type II diabetes mellitus E11.9 ; Hyperlipemia E78.5 and Acute non-recurrent maxillary sinusitis J01.00 [facility] [address] [id number], [place] [id number] Apr, [facility] [address] [id number], [place] [id number] Mar, Acute nasopharyngitis J[address] [facility] [address] [id number], [place] [id number] Jan, Type II diabetes mellitus E11.9 [facility] [address] [id number][place] [id number] Jan, [facility] [address] [id number], [place] [id number] Jan, Dysuria R30.0 ; Right flank pain R10.9 and Urinary frequency R35.[address] [id number], [place] [address] Jan, Adjustment disorder with anxious mood F43.[address] [id number], [place] [id number] Jul, Acute non-recurrent pansinusitis J01.40 [facility] [address] [facility] [id number], [place] [address] Jun, [facility] [address] [id number], [place] [id number] Jun, Type II diabetes mellitus E11.9 ; Hyperlipemia E78.5 ; Hypothyroidism, unspecified E03.9 and Obesity E66.[address] [id number], [place] [id number] Feb, Anxiety F41.9 and Adverse reaction to SSRI antidepressant drug T43.225A [address] [id number], [place] [address] Jan, [address] [id number], [place] [id number] Jan, Irritability 799.22 ; Well woman exam with routine gynecological exam V72.31 ; Breast cancer screening V76.10 and History of hysterectomy for indication other than malignancy V88.[address] [id number], [place] [id number] Dec, Type II diabetes mellitus 250.00 ; Postsurgical hypothyroidism 244.0 ; Right flank pain 789.09 and Obesity 278.00 [facility] [address] [facility] [address] [id number], [place] [id number] September, [facility] [address] [facility] [id number] [place] [address] September, [facility] [address] [facility] [id number] [place] [address] Aug, [facility] [place] [facility] [address] [facility] [id number] [place] [address] Aug, [facility] [address] [facility] [id number] [place] [address] Jul, [facility] [place] [facility] [address] [facility] [id number] [place] [address] Jul, [facility] [address] [facility] [id number] [place] [address] Jul, [facility] [address] [id number], [place] [address] Jul, [facility] [place] [facility] [address] [facility] [id number] [place] [address] Apr, [facility] [place] [facility] [address] [facility] [id number], [place] [address] Apr, [facility] [place] [facility] [address] [facility] [id number], [place] [address] Mar, [facility] [place] [facility] [address] [facility] [id number], [place] [address] Mar, [facility] [place] [facility] [address] [facility] [id number], [place] [address] Mar, [facility] [place] [facility] [address] [facility] [id number], [place] [address] Mar, [facility] [place] [facility] [address] [facility] [id number], [place] [address] Feb, [facility] [place] [facility] [address] [facility] [id number], [place] [address] Feb, [facility] [place] [facility] [address] [id number] [place] [address] Feb, [facility] [place] [facility] [address] [id number] [place] [address] Feb, [facility] [place] [facility] [address] [id number] [place] [address] Jan, [facility] [place] [facility] [address] [id number] [place] [address] 08 Jan, 2014 [facility] [place] [facility] [address] [id number] [place] [address] Jan, [facility] [place] [facility] [address] [id number] [place] [address] Jan, [facility] [place] [facility] [address] [id number] [place] [address] Jan, [facility] [place] [facility] [address] [id number] [place] [address] Dec, [facility] [place] [facility] [address] [id number] [place] [address] Dec, [facility] [place] [facility] [address] [id number] [place] [address] Dec, [facility] [place] [facility] [address] [id number] [place] [address] Dec, [facility] [place] [facility] [address] [id number] [place] [address] Oct, [facility] [place] [facility] [address] [id number] [place] [address] Oct, [facility] [place] [facility] [address] [id number] [place] [address] Oct, [facility] [place] [facility] [address] [id number] [place] [address] Oct, [facility] [place] [facility] [address] [id number] [place] [address] September, [facility] [address] [id number] [place] [address] September, [facility] [address] [id number] [place] [address] September, [facility] [address] [id number] [place] [address] September, [facility] [address] [id number] [place] [address] September, [facility] [address] [id number] [place] [address] September, [facility] [address] [facility] [id number] [place] [address] September, [facility] [address] [facility] [id number] [place] [address] September, [facility] [address] [id number] [place] [address] September, [facility] [address] [facility] [id number] [place] [address] September, [facility] [address] [facility] [id number] [place] [address] Aug, [facility] [address] [facility] [id number], [place] [address] Aug, [facility] [address] [facility] [id number], [place] [address] Aug, [facility] [address] [facility] [id number], [place] [address] Aug, [facility] [address] [facility] [id number], [place] [address] Aug, IMMUNIZATIONS No Known Immunizations SOCIAL HISTORY Never Assessed REASON FOR VISIT Diabetes f/u with ELIOT Novoa LPN PLAN OF CARE Activity Details Follow Up JUN Reason:DM/A1C VITAL SIGNS Height 61 in 2017-04-25 Weight 206.0 lbs 2017-04-25 Temperature 98.0 degrees Fahrenheit 2017-04-25 Heart Rate 63 bpm 2017-04-25 Respiratory Rate 18 2017-04-25 BMI 38.92 kg/m2 2017-04-25 Blood pressure systolic 112 mmHg 2017-04-25 Blood pressure diastolic 70 mmHg 2017-04-25 MEDICATIONS Medication Instructions Dosage Frequency Start Date End Date Duration Status Nasonex 50 MCG/ACT Nasally Once a day 2 sprays in each nostril 24h May, 0 days Not-Taking Vitamin C ER 500 MG Orally Once a day 1 tablet 24h Active Tradjenta 5 mg Orally Once a day 1 tablet 24h Active Glucometer 1 glucometer check blood sugar daily May, Active Probiotic Active OneTouch Ultra Test - CHECK BLOOD SUGAR ONCE DAILY. 90 Active Lisinopril 2.5 MG Orally Once a day 1 tablet by Oral route 1 time per day 24h Active Aspirin 325 MG Orally Once a day 1 tablet 24h Not-Taking Welchol 625 MG Orally 2 times a day TAKE 3 TABLETS TWICE DAILY WITH MEALS 12h Active AZO Yeast Plus - Active Rhinocort Allergy 32 MCG/ACT Nasally Once a day 2 puffs in each nostril 24h Active Synthroid 150 MCG Orally Once a day 1 tablet on an empty stomach in the morning 24h Active Insulin Detemir 100 UNIT/ML Subcutaneous Once a day- ( increase by 5 units a week until fasting blood sugar is less than 130, up to 25 units. 10 units Mar, Active OneTouch Delica Lancets Fine - CHECK BLOOD SUGAR ONCE DAILY. 90 Active Multivitamin Orally Once a day 1 tab 24h Not-Taking Naproxen 500 MG Orally every 12 hrs 1 tablet with food or milk as needed 12h Active Pravastatin Sodium 20 MG Orally Once a day 1 tablet 24h 11 Jun, 2015 Not-Taking Mucinex DM 30-600 MG Orally every 12 hrs 1 tablet as needed 12h Not-Taking NovoLog Flexpen 100 UNIT/ML Subcutaneous 3 times a day with meals (pt has sliding scale) sliding scale 3-10 units Apr, Active HydrOXYzine Pamoate 50 MG TAKE ONE CAPSULE BY MOUTH THREE TIMES DAILY 30 Active Ibuprofen by oral route Dec, Not-Taking Insulin Pen Needle 31G X 8 MM as directed Mar, Active Mucinex Active RESULTS No Results PROCEDURES No Known [...]
--- OUTSIDE RECORDS SUMMARY | 2018-08-28 11:48 | XMS REPORT ---
Author Author JANNETH WOO [facility] [place] eClinicalWorks Address Unknown Phone Unavailable Care Team Providers Care Cleaner Laboratory Equipment Name Role Phone JANNETH WOO CP Unavailable Allergies, Adverse Reactions, Alerts Substance Reaction Event Type Zoloft suicidal thoughts Drug Allergy Paxil suicidal thoughts Drug Allergy Problems Problem Type Condition Code Onset Dates Condition Status Problem Type II diabetes mellitus E11.9 Active Problem Hypothyroidism, unspecified E03.9 Active Problem Adjustment disorder with anxious mood F43.22 Active Problem Hyperlipemia E78.5 Active Assessment Acute nasopharyngitis J00 Active Problem Anxiety F41.9 Active Problem Postsurgical hypothyroidism E89.0 Active Medications Medication Code System Code Instructions Start Date End Date Status Dosage Aspirin [facility] [address]-86 325 MG Orally Once a day 1 tablet Mucinex DM [facility] [address]-06 30-600 MG Orally every 12 hrs 1 tablet as needed HydrOXYzine Pamoate [facility] 18312422052 50 MG TAKE ONE CAPSULE BY MOUTH THREE TIMES DAILY Glimepiride [facility] [address]-64 2 MG Orally 2 times a day TAKE ONE TABLET IN THE MORNING AND ONE-HALF TABLET AT DINNER. AZO Cranberry Urinary Tract [facility] [address]42 250-60 MG Orally Once a day 2 cap Multivitamin [facility] 18628-39066 Orally Once a day 1 tab Ibuprofen [facility] 0 Dec 06, 2013 by oral route Lisinopril [facility] [address]-59 2.5 MG Orally Once a day 1 tablet by Oral route 1 time per day Synthroid [facility] [address]-98 150 MCG Orally Once a day take 1 tablet (150 mcg) by oral route once daily Procedures Procedure Coding System Code Date Office Visit, Est Pt., Level 3 CPT-4 22697 Mar 16, 2016 MEASURE BLOOD OXYGEN LEVEL CPT-4 94297 Mar 16, 2016 Vital Signs Date/Time: Mar 16, 2016 Cardiac Monitoring Heart Rate 77 bpm Weight 192 lbs Height 61 in BMI 36.27 Index Oximetry 99 % Blood Pressure Diastolic 70 mmHg Blood Pressure Systolic 102 mmHg Results No Known Results Summary Purpose eClinicalWorks Submission
--- OUTSIDE RECORDS SUMMARY | 2018-08-28 11:48 | XMS REPORT ---
Author Author TOBY MILLS [facility] Address [address] [place] [address] Care Team Providers Care Senior Drafter Name Role Phone TOBY MILLS Unavailable PROBLEMS Type Condition ICD9-CM Code CFM78-NM Code Onset Dates Condition Status SNOMED Code Problem Statin intolerance Z78.9 Active 89664777 Problem Hyperlipemia E78.5 Active 41714853 Problem Postsurgical hypothyroidism E89.0 Active 04517627 Problem Dental examination Z01.20 Active 546283042 Problem Obesity (BMI 30-39.9) E66.9 Active 574733054 Problem Hypothyroidism, unspecified E03.9 Active 40177824 Problem Anxiety F41.9 Active 09722547 Problem Adjustment disorder with anxious mood F43.22 Active 74831102 Problem Type II diabetes mellitus E11.9 Active 83519435 ALLERGIES No Information SOCIAL HISTORY Never Assessed PLAN OF CARE VITAL SIGNS MEDICATIONS Medication Instructions Dosage Frequency Start Date End Date Duration Status Tradjenta 5 mg Orally Once a day 1 tablet 24h May, 0 days Active RESULTS No Results PROCEDURES No Known procedures IMMUNIZATIONS No Known Immunizations MEDICAL (GENERAL) HISTORY Type Description Date Medical [...]
--- OUTSIDE RECORDS SUMMARY | 2018-08-28 11:48 | XMS REPORT ---
Author Author TOBY MILLS [facility] eClinicalWorks Address Unknown Phone Unavailable Care Team Providers Care Bark Peeler Name Role Phone TOBY MILLS CP Unavailable Allergies No Known Allergies Problems Problem Type Condition Code Onset Dates Condition Status Problem Postsurgical hypothyroidism 244.0 Active Problem Other and unspecified hyperlipidemia 272.4 Active Problem Type II diabetes mellitus 250.00 Active Problem Obesity, unspecified 278.00 Active Medications No Known Medications Results No Known Results Summary Purpose eClinicalWorks Submission
--- OUTSIDE RECORDS SUMMARY | 2018-08-28 11:48 | XMS REPORT ---
Author [facility] [place] Address Formerly [facility] [place] [address] Care Team Providers Care Scrap Cutter Name Role Phone TOBY MILLS Unavailable PROBLEMS Type Condition ICD9-CM Code QTB21-TI Code Onset Dates Condition Status SNOMED Code Assessment Urinary frequency R35.0 Jan, Active 797053954 Assessment Dysuria R30.0 Jan, Active 56626984 Assessment Right flank pain R10.9 Jan, Active 113287775 Problem Adjustment disorder with anxious mood F43.22 Active 63900150 Problem Type II diabetes mellitus E11.9 Active 88402562 Problem Postsurgical hypothyroidism E89.0 Active 56383252 Problem Hyperlipemia E78.5 Active 93561712 Problem Hypothyroidism, unspecified E03.9 Active 23872511 Problem Anxiety F41.9 Active 88654019 ALLERGIES Substance Reaction Event Type Date Status Zoloft suicidal thoughts Drug Allergy Jan, Active Paxil suicidal thoughts Drug Allergy Jan, Active SOCIAL HISTORY No smoking Hx information available PLAN OF CARE VITAL SIGNS Height 61 in 2016-01-18 Weight 187.8 lbs 2016-01-18 Heart Rate 67 bpm 2016-01-18 Respiratory Rate 18 2016-01-18 BMI 35.48 kg/m2 2016-01-18 Blood pressure systolic 118 mmHg 2016-01-18 Blood pressure diastolic 62 mmHg 2016-01-18 MEDICATIONS Medication Instructions Dosage Frequency Start Date End Date Duration Status Ibuprofen by oral route Dec, Active Synthroid 150 MCG Orally Once a day take 1 tablet (150 mcg) by oral route once daily 24h Active Lisinopril 2.5 MG Orally Once a day 1 tablet by Oral route 1 time per day 24h 90 days Active Glimepiride 2 MG Orally 2 times a day TAKE ONE TABLET IN THE MORNING AND ONE- HALF TABLET AT DINNER. 12h 90 days Active HydrOXYzine Pamoate 50 MG TAKE ONE CAPSULE BY MOUTH THREE TIMES DAILY 30 Active RESULTS Name Result Date Reference Range UA LONG DIP (IN HOUSE) 2016-01-18 Lot # [id number] Exp date 03/20 Clarity clear Color yellow Odor none GLU negative REDD negative KET negative SG 1.010 BLO negative pH 7.0 Protein negative URO 0.2 NIT negative HARSHAL negative Lot # Exp date CULTURE, URINE 2016-01-18 Urine Culture, Routine Final report Result 1 Antimicrobial Susceptibility CMP 2016-01-18 Glucose, Serum 140 65-99 BUN 10 6-24 Creatinine, Serum 0.76 0.57-1.00 eGFR If NonAfricn Am 97 >59 eGFR If Africn Am 112 >59 BUN/Creatinine Ratio 13 9-23 Sodium, Serum 141 134-144 Potassium, Serum 4.5 3.5-5.2 Chloride, Serum 102 97-108 Carbon Dioxide, Total 25 18-29 Calcium, Serum 9.8 8.7-10.2 Protein, Total, Serum 7.2 6.0-8.5 Albumin, Serum 4.5 3.5-5.5 Globulin, Total 2.7 1.5-4.5 A/G Ratio 1.7 1.1-2.5 Bilirubin, Total 0.5 0.0-1.2 Alkaline Phosphatase, S 66 39-117 AST (SGOT) 16 0-40 ALT (SGPT) 14 0-32 CBC 2016-01-18 WBC 5.1 3.4-10.8 RBC 4.55 3.77-5.28 Hemoglobin 13.3 11.1-15.9 Hematocrit 38.5 34.0-46.6 MCV 85 79-97 MCH 29.2 26.6-33.0 MCHC 34.5 31.5-35.7 RDW 12.3 12.3-15.4 Platelets 256 150-379 Neutrophils 65 Lymphs 28 Monocytes 6 Eos 1 Basos 0 Neutrophils (Absolute) 3.3 1.4-7.0 Lymphs (Absolute) 1.4 0.7-3.1 Monocytes(Absolute) 0.3 0.1-0.9 Eos (Absolute) 0.0 0.0-0.4 Baso (Absolute) 0.0 0.0-0.2 Immature Granulocytes 0 Immature Grans (Abs) 0.0 0.0-0.1 KUB 2016-01-18 PROCEDURES Procedure Date Ordered Related Diagnosis Body Site URINALYSIS, AUTO, W/O SCOPE Jan 18, 2016 [facility] Jan 18, 2016 THER/PROPH/DIAG INJ, SC/IM Jan 18, 2016 TORADOL (IM) 15 MG/ML (UP TO 15 MG) Jan 18, 2016 Office Visit, Est Pt., Level 3 Jan 18, 2016 VENIPUNCT, ROUTINE* Jan 18, 2016 IMMUNIZATIONS Vaccine Route Administration Date Status TORADOL (IM) 15 MG/ML (UP TO 15 MG) IM Intramuscular Jan 18, 2016 Administered
--- OUTSIDE RECORDS SUMMARY | 2018-08-28 11:49 | XMS REPORT ---
Author Author BRITT OLIVIER [facility] Address [address] [place] [address] Care Team Providers Care Dining Car Waiter/Waitress Name Role Phone BRITT OLIVIER Unavailable PROBLEMS Type Condition ICD9-CM Code MAX76-TI Code Onset Dates Condition Status SNOMED Code Problem Postsurgical hypothyroidism E89.0 Active 73027645 Problem Hypothyroidism, unspecified E03.9 Active 79186885 Problem Type II diabetes mellitus E11.9 Active 28509179 Problem Statin intolerance Z78.9 Active 45315253 Problem Hyperlipemia E78.5 Active 04155258 Problem Anxiety F41.9 Active 98381138 Problem Type 2 diabetes mellitus with hyperglycemia E11.65 Active 397702883071335 Problem Type 2 diabetes mellitus with other specified complication E11.69 Active 46524121 Problem Obesity (BMI 30-39.9) E66.9 Active 924278097 Problem Adjustment disorder with anxious mood F43.22 Active 15212158 Problem 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.4 Active 565455181 Problem Uncontrolled type 2 diabetes mellitus without complication, without long-term current use of insulin E11.65 Active 453174624 ALLERGIES No Information ENCOUNTERS Encounter Location Date Diagnosis [address] [id number], [place] [id number] Jul, BMI 40.0-44.9, adult Z68.41 ; Hyperlipemia E78.5 ; Hypothyroidism , unspecified E03.9 ; Uncontrolled type 2 diabetes mellitus without complication , without long-term current use of insulin E11.65 ; Statin intolerance Z78.9 ; Pain of left foot M79.672 and Pain in right foot M79.[address] [id number], [place] [id number] May, Type 2 diabetes mellitus with other specified complication E11.[address] [id number][place] [id number] Apr, [facility] [address] [id number], [place] [id number] Apr, Type 2 diabetes mellitus with other specified complication E11.69 ; Type 2 diabetes mellitus with hyperglycemia E11.65 and longterm current use of insulin Z79.4 [facility] [address] [id number], [place] [id number] Mar, Hyperlipemia E78.5 ; Encounter for immunization Z23 and Uncontrolled type 2 diabetes mellitus without complication, without long-term current use of insulin E11.[address] [facility] [address] [id number], [place] [id number] Feb, [facility] [address] [id number][place] [id number] Jan, Type II diabetes mellitus E11.[address] [facility] [address] [id number], [place] [id number] Jan, Type II diabetes mellitus E11.[address] [facility] [address] [id number], [place] [id number] Dec, [facility] [address] [id number], [place] [address] Dec, Type II diabetes mellitus E11.9 ; Obesity (BMI 30-39.9) E66.9 and Dietary counseling Z71.3 [facility] [address] [id number], [place] [id number] Dec, Dental examination Z01.20 [facility] [address] [id number], [place] [address] Nov, Acute cystitis without hematuria N30.00 [facility] [address] [facility] [id number][place] [id number] September, Dental examination Z01.[address] [facility] [address] [id number], [place] [address] September, Type II diabetes mellitus E11.9 ; Hypothyroidism, unspecified E03.9 ; Hyperlipemia E78.5 ; Dietary counseling Z71.3 and Exercise counseling Z71.89 [facility] [address] [id number] [place] [id number] Jun, [facility] [address] [facility] [id number] [place] [address] May, [facility] [address] [id number], [place] [id number] May, [facility] [address] [id number], [place] [id number] May, Type II diabetes mellitus E11.9 [facility] [address] [facility] [id number], [place] [address] May, [facility] [address] [id number], [place] [address] May, Postsurgical hypothyroidism E89.0 ; Type II diabetes mellitus E11.9 ; Hyperlipemia E78.5 and Acute non-recurrent maxillary sinusitis J01.[address] [facility] [address] [id number], [place] [id number] Apr, [facility] [address] [id number], [place] [id number] Mar, Acute nasopharyngitis J00 [facility] [address] [id number], [place] [id number] Jan, Type II diabetes mellitus E11.9 [facility] [address] [id number], [place] [id number] Jan, [facility] [address] [id number], [place] [id number] Jan, Dysuria R30.0 ; Right flank pain R10.9 and Urinary frequency R35.[address] [facility] [address] [id number], [place] [id number] Jan, Adjustment disorder with anxious mood F43.22 [facility] [address] [id number], [place] [id number] Jul, Acute non-recurrent pansinusitis J01.40 [facility] [address] [place] [address] Jun, [facility] [address] [place] [address] [id number], [place] [id number] Jun, Type II diabetes mellitus E11.9 ; Hyperlipemia E78.5 ; Hypothyroidism, unspecified E03.9 and Obesity E66.[address] [id number], [place] [id number] Feb, Anxiety F41.9 and Adverse reaction to SSRI antidepressant drug T43.225A [address] [id number], [place] [id number] Jan, [facility] [address] [id number], [place] [id number] Jan, Irritability 799.22 ; Well woman exam with routine gynecological exam V72.31 ; Breast cancer screening V76.10 and History of hysterectomy for indication other than malignancy V88.[address] [id number], [place] [address] Dec, Type II diabetes mellitus 250.00 ; Postsurgical hypothyroidism 244.0 ; Right flank pain 789.09 and Obesity 278.[address] [id number], [place] [id number] September, [facility] [address] [place] [address] September, [facility] [id number] [place] [address] Aug, [facility] [id number] [place] [address] Aug, [facility] [id number] [place] [address] Jul, [facility] [id number] [place] [address] Jul, [facility] [place] [facility] [address] [id number] [place] [address] Jul, [facility] [place] [facility] [address] [id number] [place] [address] Jul, [facility] [place] [facility] [address] [facility] [id number] [place] [address] Apr, [facility] [place] [facility] [address] [id number] [place] [address] Apr, [facility] [place] [facility] [address] [id number] [place] [address] Mar, [facility] [place] [facility] [address] [id number] [place] [address] Mar, [facility] [place] [facility] [address] [id number] [place] [address] Mar, [facility] [place] [facility] [address] [id number] [place] [address] Mar, [facility] [place] [facility] [address] [id number] [place] [address] Feb, [facility] [place] [facility] [address] [id number] [place] [address] Feb, [facility] [place] [facility] [address] [id number], [place] [address] Feb, [facility] [place] [facility] [address] [id number], [place] [address] Feb, [facility] [place] [facility] [address] [id number] [place] [address] 08 Jan, 2014 [facility] [place] [facility] [address] [id number] [place] [address] 08 Jan, 2014 [facility] [place] [facility] [address] [id number] [place] [address] 05 Jan, 2014 [facility] [place] [facility] [address] [id number] [place] [address] Jan, [facility] [address] [id number] [place] [address] Jan, [facility] [place] [facility] [address] [id number] [place] [address] Dec, [facility] [place] [facility] [address] [id number] [place] [address]- [address] Dec, [facility] [place] [facility] [address] [id number] [place] [address] Dec, [facility] [place] [facility] [address] [id number] [place] [address] Dec, [facility] [place] [facility] [address] [id number] [place] [address] Oct, [facility] [place] [facility] [address] [id number] [place] [address] Oct, [facility] [address] [id number] [place] [address] Oct, [facility] [place] [facility] [address] [id number] [place] [address] Oct, [facility] [address] [id number] [place] [address] September, [facility] [place] [facility] [address] [id number] [place] [address] September, [facility] [place] [facility] [address] [id number] [place] [address] September, [facility] [place] [facility] [address] [id number] [place] [address]- 3485 September, [facility] [place] [facility] [address] [id number] [place] [address] September, [facility] [place] [facility] [address] [id number] [place] [address] September, [facility] [address] [id number], [place] [address] September, [facility] [address] [id number], [place] [address] September, [facility] [address] [id number], [place] [address] September, [facility] [address], [place] [address] September, [facility] [address] [id number], [place] [address] Aug, [facility] [address], [place] [address] Aug, [facility] [address]65100[place], [place] [address] Aug, [facility] [address] [id number], [place] [address] Aug, [facility] [address] [id number], [place] [address] Aug, IMMUNIZATIONS No Known Immunizations SOCIAL HISTORY Never Assessed REASON FOR VISIT dental-diabetes PLAN OF CARE Activity Details Follow Up FREDERICK and director of financial reporting adult Reason: VITAL SIGNS MEDICATIONS No Known Medications RESULTS No Results PROCEDURES Procedure Date Ordered Result Body Site SCREENING OF A PATIENT Dec 19, 2016 Billing Notes on claim Dec 19, 2016 INSTRUCTIONS MEDICATIONS ADMINISTERED No Known Medications MEDICAL [...]
--- OUTSIDE RECORDS SUMMARY | 2018-08-28 11:49 | XMS REPORT ---
Author Author TOBY MILLS Organization [employer] Address Unknown Phone Unavailable Care Team Providers Care Alteration Manager Name Role Phone TOBY MILLS CP Unavailable Allergies, Adverse Reactions, Alerts Substance Reaction Event Type Zoloft suicidal thoughts Drug Allergy Paxil suicidal thoughts Drug Allergy Problems Problem Type Condition Code Onset Dates Condition Status Problem Postsurgical hypothyroidism E89.0 Active Problem Type 2 diabetes mellitus without complications E11.9 Active Problem Anxiety F41.9 Active Assessment Adverse reaction to SSRI antidepressant drug T43.225A Active Problem Hyperlipemia E78.5 Active Assessment Anxiety F41.9 Active Medications Medication Code System Code Instructions Start Date End Date Status Dosage Probiotic [facility] 447[address]56 not defined Lisinopril [facility] [address]-60 2.5 MG Orally Once a day 1 tablet by Oral route 1 time per day Synthroid [facility] [address]-44 150 MCG Orally Once a day take 1 tablet (150 mcg) by oral route once daily Glimepiride [facility] [address]-42 2 MG Orally 2 times a day TAKE ONE TABLET IN THE MORNING AND ONE-HALF TABLET AT DINNER. Vistaril [facility] [address]-32 50 MG Orally 3 times a day 1 capsule Ibuprofen [facility] 0 Dec 06, 2013 by oral route Procedures Procedure Coding System Code Date Office Visit, Est Pt., Level 3 CPT-4 47244 Feb 09, 2015 Vital Signs Date/Time: Feb 09, 2015 Temperature 99.2 F Weight 185 lbs Height 61 in BMI 34.95 Index Blood Pressure Diastolic 68 mmHg Blood Pressure Systolic 108 mmHg Cardiac Monitoring Heart Rate 78 bpm Results No Known Results Summary Purpose [employer] Submission
--- OUTSIDE RECORDS SUMMARY | 2018-08-28 11:49 | XMS REPORT ---
Author Author DARIUS MARIN [facility] Address Unknown Phone Unavailable Care Team Providers Care Sash Clamp Operator Name Role Phone DARIUS MARIN Unavailable Unavailable PROBLEMS Type Condition ICD9-CM Code ICL78-NT Code Onset Dates Condition Status SNOMED Code Assessment Adjustment disorder with anxious mood F43.22 15 Jan, 2016 Active 25762970 Problem Adjustment disorder with anxious mood F43.22 Active 72873619 Problem Type II diabetes mellitus E11.9 Active 46978451 Problem Postsurgical hypothyroidism E89.0 Active 41282953 Problem Hyperlipemia E78.5 Active 70289280 Problem Hypothyroidism, unspecified E03.9 Active 08607555 Problem Anxiety F41.9 Active 23140862 ALLERGIES No Known Allergies SOCIAL HISTORY No smoking Hx information available PLAN OF CARE VITAL SIGNS MEDICATIONS No Known Medications RESULTS No Results PROCEDURES No Known procedures IMMUNIZATIONS No Known Immunizations
--- OUTSIDE RECORDS SUMMARY | 2018-08-28 11:49 | XMS REPORT ---
Author [facility] Address [address] [place] [address] Care Team Providers Care Mock Up Builder Name Role Phone TOBY MILLS Unavailable PROBLEMS Type Condition ICD9-CM Code GZA81-DS Code Onset Dates Condition Status SNOMED Code Problem Statin intolerance Z78.9 Active 90928977 Problem Hyperlipemia E78.5 Active 14620244 Problem Postsurgical hypothyroidism E89.0 Active 99589258 Problem Dental examination Z01.20 Active 222643678 Problem Obesity (BMI 30-39.9) E66.9 Active 759956159 Problem Hypothyroidism, unspecified E03.9 Active 46379258 Problem Anxiety F41.9 Active 56806005 Problem Adjustment disorder with anxious mood F43.22 Active 97857001 Problem Type II diabetes mellitus E11.9 Active 11390588 ALLERGIES Substance Reaction Event Type Date Status Zoloft suicidal thoughts Drug Allergy May, Active Paxil suicidal thoughts Drug Allergy May, Active SOCIAL HISTORY No smoking Hx information available PLAN OF CARE Activity Details Follow Up 3 Months Reason:DM visit VITAL SIGNS Height 61 in 2016-05-23 Weight 194.6 lbs 2016-05-23 Temperature 98.0 degrees Fahrenheit 2016-05-23 Heart Rate 70 bpm 2016-05-23 Respiratory Rate 18 2016-05-23 BMI 36.77 kg/m2 2016-05-23 Blood pressure systolic 118 mmHg 2016-05-23 Blood pressure diastolic 80 mmHg 2016-05-23 MEDICATIONS Medication Instructions Dosage Frequency Start Date End Date Duration Status Invokana 300 MG Orally Once a day 1 tablet 24h May, Active Glucometer 1 glucometer check blood sugar daily May, Active Glimepiride 2 MG Orally 2 times a day take 1 1/2 tablets in am and 1/2 at night 12h Active Aspirin 325 MG Orally Once a day 1 tablet 24h Active Ibuprofen by oral route Dec, Active Synthroid 150 MCG Orally Once a day take 1 tablet (150 mcg) by oral route once daily 24h Active Lisinopril 2.5 MG Orally Once a day 1 tablet by Oral route 1 time per day 24h 90 days Active Multivitamin Orally Once a day 1 tab 24h Active AZO Cranberry Urinary Tract 250-60 MG Orally Once a day 2 cap 24h Active HydrOXYzine Pamoate 50 MG TAKE ONE CAPSULE BY MOUTH THREE TIMES DAILY 30 Active Augmentin 875-125 MG Orally every 12 hrs 1 tablet 12h May,May 10 day(s) Active Nasonex 50 MCG/ACT Nasally Once a day 2 sprays in each nostril 24h May, 0 days Active RESULTS Name Result Date Reference Range A1C (IN HOUSE) 2016-05-23 A1C IN HOUSE 9.2 4.3 - 5.6 % Previous A1c 6.8 Lot [id number] Exp date 02/19 THYROID ANALYZER 2016-05-23 TSH 3.710 0.450-4.500 CBC 2016-05-23 WBC 5.0 3.4-10.8 RBC 4.63 3.77-5.28 Hemoglobin 13.4 11.1-15.9 Hematocrit 39.6 34.0-46.6 MCV 86 79-97 MCH 28.9 26.6-33.0 MCHC 33.8 31.5-35.7 RDW 12.2 12.3-15.4 Platelets 295 150-379 Neutrophils 58 Lymphs 33 Monocytes 7 Eos 2 Basos 0 Neutrophils (Absolute) 2.9 1.4-7.0 Lymphs (Absolute) 1.7 0.7-3.1 Monocytes(Absolute) 0.3 0.1-0.9 Eos (Absolute) 0.1 0.0-0.4 Baso (Absolute) 0.0 0.0-0.2 Immature Granulocytes 0 Immature Grans (Abs) 0.0 0.0-0.1 LIPID PANEL 2016-05-23 Cholesterol, Total 195 100-199 Triglycerides 64 0-149 HDL Cholesterol 72 >39 VLDL Cholesterol Ajd 13 5-40 LDL Cholesterol Calc 110 0-99 CMP 2016-05-23 Glucose, Serum 230 65-99 BUN 9 6-24 Creatinine, Serum 0.75 0.57-1.00 eGFR If NonAfricn Am 98 >59 eGFR If Africn Am 113 >59 BUN/Creatinine Ratio 12 9-23 Sodium, Serum 138 134-144 Potassium, Serum 4.5 3.5-5.2 Chloride, Serum 98 96-106 Carbon Dioxide, Total 25 18-29 Calcium, Serum 9.3 8.7-10.2 Protein, Total, Serum 7.5 6.0-8.5 Albumin, Serum 4.5 3.5-5.5 Globulin, Total 3.0 1.5-4.5 A/G Ratio 1.5 1.1-2.5 Bilirubin, Total 0.4 0.0-1.2 Alkaline Phosphatase, S 86 39-117 AST (SGOT) 15 0-40 ALT (SGPT) 18 0-32 PROCEDURES Procedure Date Ordered Related Diagnosis Body Site ROUTINE VENIPUNCTURE 2016-05-23 N[facility] May [facility], 2016 Office Visit, Est Pt., Level 4 May 23, 2016 VENIPUNCT, ROUTINE* May 23, 2016 IMMUNIZATIONS No Known Immunizations
--- OUTSIDE RECORDS SUMMARY | 2018-08-28 11:49 | XMS REPORT ---
Author TOBY Izaguirre [facility] [employer] Address Unknown Phone Unavailable Care Team Providers Care Children'S Program Coordinator Name Role Phone TOBY MILLS CP Unavailable Allergies No Known Allergies Problems Problem Type Condition Code Onset Dates Condition Status Problem Hypothyroidism, unspecified E03.9 Active Problem Anxiety F41.9 Active Problem Type II diabetes mellitus E11.9 Active Problem Postsurgical hypothyroidism E89.0 Active Problem Hyperlipemia E78.5 Active Medications Medication Code System Code Instructions Start Date End Date Status Dosage Pravastatin Sodium [facility] [address]-65 20 MG Orally Once a day Jun 15, 2015 1 tablet Results No Known Results Summary Purpose [employer] Submission
--- OUTSIDE RECORDS SUMMARY | 2018-08-28 11:49 | XMS REPORT ---
Author TOBY Izaguirre Organization [employer] Address Unknown Phone Unavailable Care Team Providers Care Counterintelligence Analyst Name Role Phone TOBY MILLS CP Unavailable Allergies, Adverse Reactions, Alerts Substance Reaction Event Type N.K.D.A. Info Not Available Non Drug Allergy Problems Problem Type Condition ICD-9 Code Onset Dates Condition Status Assessment Obesity 278.00 Active Problem Postsurgical hypothyroidism 244.0 Active Problem Other and unspecified hyperlipidemia 272.4 Active Problem Type II diabetes mellitus 250.00 Active Assessment Postsurgical hypothyroidism 244.0 Active Assessment Right flank pain 789.09 Active Problem Obesity, unspecified 278.00 Active Assessment Type II diabetes mellitus 250.00 Active Medications Medication Code System Code Instructions Start Date End Date Status Dosage Synthroid [facility] [address]-18 150 MCG Orally Once a day take 1 tablet (150 mcg) by oral route once daily Ibuprofen [facility] 0 Dec 06, 2013 by oral route Lizette-D 24 Hour [facility] 0 Dec 06, 2013 by oral route Glimepiride [facility] [address]-28 2 MG Orally 2 times a day TAKE ONE TABLET IN THE MORNING AND ONE-HALF TABLET AT DINNER. Lisinopril [facility] [address]-32 2.5 MG Orally Once a day 1 tablet by Oral route 1 time per day Procedures Procedure Coding System Code Date URINALYSIS, AUTO, W/O SCOPE CPT-4 20951 Dec 26, 2014 Office Visit, Est Pt., Level 4 CPT-4 71597 Dec 26, 2014 GLYCATED HEMOGLOBIN TEST CPT-4 97813 Dec 26, 2014 Vital Signs Date/Time: Dec 26, 2014 Temperature 99.5 F Weight 189.7 lbs Height 61 in BMI 35.84 Index Blood Pressure Diastolic 80 mmHg Blood Pressure Systolic 122 mmHg Cardiac Monitoring Heart Rate 86 bpm Results Name Result Date Reference Range Unit Abnormality Flag A1C (IN HOUSE) Summary Purpose [employer] Submission
--- OUTSIDE RECORDS SUMMARY | 2018-08-28 11:49 | XMS REPORT ---
Author Author TOBY MILLS [facility] Address [address] [place] [address] Care Team Providers Care Manager Urgent Care Name Role Phone TOBY MILLS Unavailable PROBLEMS Type Condition ICD9-CM Code [id number] Code Onset Dates Condition Status SNOMED Code Problem Postsurgical hypothyroidism E89.0 Active 99902385 Problem Hypothyroidism, unspecified E03.9 Active 72298593 Problem Type II diabetes mellitus E11.9 Active 59855124 Problem Statin intolerance Z78.9 Active 06185518 Problem Hyperlipemia E78.5 Active 37623298 Problem Anxiety F41.9 Active 09688231 Problem Type 2 diabetes mellitus with hyperglycemia E11.65 Active [id number] Problem Type 2 diabetes mellitus with other specified complication E11.69 Active 61923066 Problem Obesity (BMI 30-39.9) E66.9 Active 671148188 Problem Adjustment disorder with anxious mood F43.22 Active 98972977 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 895812238 Problem Uncontrolled type 2 diabetes mellitus without complication, without long-term current use of insulin E11.65 Active 572277667 ALLERGIES No Information ENCOUNTERS Encounter Location Date Diagnosis [address] [id number] [place] [id number] Oct, [address] [id number] [place] [id number] Oct, BMI 40.0-44.9, adult Z68.41 ; Dysuria R30.0 ; Uncontrolled type 2 diabetes mellitus without complication, without long-term current use of insulin E11.65 ; Statin intolerance Z78.9 and Dietary counseling Z71.[address] [id number] [place] [id number] Jul, BMI 40.0-44.9, adult Z68.41 ; Hyperlipemia E78.5 ; Hypothyroidism , unspecified E03.9 ; Uncontrolled type 2 diabetes mellitus without complication , without long-term current use of insulin E11.65 ; Statin intolerance Z78.9 ; Pain of left foot M79.672 and Pain in right foot M79.[address] [facility] [address] [id number] [place] [id number] May, Type 2 diabetes mellitus with other specified complication E11.[address] [facility] [address] [id number] [place] [id number] Apr, [facility] [address] [id number] [place] [id number] Apr, Type 2 diabetes mellitus with other specified complication E11.69 ; Type 2 diabetes mellitus with hyperglycemia E11.65 and 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.4 [facility] [facility] [address] [id number] [place] [id number] Mar, Hyperlipemia E78.5 ; Encounter for immunization Z23 and Uncontrolled type 2 diabetes mellitus without complication, without long-term current use of insulin E11.65 [facility] [address] [facility] [address] [id number] [place] [address] Feb, [facility] [address] [id number] [place] [id number] 15 Jan, 2017 Type II diabetes mellitus E11.9 [facility] [address] [facility] [address] [id number] [place] [id number] Jan, Type II diabetes mellitus E11.9 [facility] [address] [id number] [place] [id number] Dec, [facility] [address] [id number] [place] [id number] Dec, Type II diabetes mellitus E11.9 ; Obesity (BMI 30-39.9) E66.9 and Dietary counseling Z71.3 [facility] [address] [id number] [place] [address] Dec, Dental examination Z01.[address] [facility] [address] [id number] [place] [address] Nov, Acute cystitis without hematuria N30.00 [facility] [address] [facility] [id number][place] [id number] September, Dental examination Z01.20 [facility] [address] [id number] [place] [id number] September, Type II diabetes mellitus E11.9 ; Hypothyroidism, unspecified E03.9 ; Hyperlipemia E78.5 ; Dietary counseling Z71.3 and Exercise counseling Z71.89 [facility] [address] [id number] [place] [address] Jun, [facility] [address] [id number], [place] [address] May, [facility] [address] [id number] [place] [id number] May, [facility] [address] [id number] [place] [address] May, Type II diabetes mellitus E11.9 [facility] [address] [facility] [id number], [place] [address] May, [facility] [address] [id number] [place] [id number] May, Postsurgical hypothyroidism E89.0 ; Type II diabetes mellitus E11.9 ; Hyperlipemia E78.5 and Acute non-recurrent maxillary sinusitis J01.00 [facility] [address] [id number] [place] [id number] Apr, [facility] [address] [id number] [place] [id number] Mar, Acute nasopharyngitis J00 [facility] [address] [id number] [place] [id number] Jan, Type II diabetes mellitus E11.9 [facility] [address] [id number] [place] [id number] Jan, [facility] [address] [id number] [place] [address] Jan, Dysuria R30.0 ; Right flank pain R10.9 and Urinary frequency R35.0 [facility] [id number] [place] [id number] Jan, Adjustment disorder with anxious mood F43.22 [facility] Mijares[address] [place] [address] AV [id number] [place] [id number] Jul, Acute non-recurrent pansinusitis J01.40 [facility] [address] [facility] [id number] [place] [address] Jun, [facility] Isabel [facility] [id number] [place] [id number] Jun, Type II diabetes mellitus E11.9 ; Hyperlipemia E78.5 ; Hypothyroidism, unspecified E03.9 and Obesity E66.9 [facility] Mijares[address] [place] [address] AV [id number] [place] [id number] Feb, Anxiety F41.9 and Adverse reaction to SSRI antidepressant drug T43.225A [facility] MAY [address] [place] [address] AVE [id number] [place] [id number] Jan, [facility] [address] [place] [address] AVE [id number] [place] [id number] Jan, Irritability 799.22 ; Well woman exam with routine gynecological exam V72.31 ; Breast cancer screening V76.10 and History of hysterectomy for indication other than malignancy V88.01 [facility] Mijares[address] [place] [address] AV [id number] [place] [id number] Dec, Type II diabetes mellitus 250.00 ; Postsurgical hypothyroidism 244.0 ; Right flank pain 789.09 and Obesity 278.00 [facility] Mijares[address] [place] [address] AV [id number] [place] [id number] September, [facility] [id number] [place] [address] September, [facility] [place] [facility] [address] [id number] [place] [address] 14 Aug, 2014 [facility] [place] [facility] [address] [id number] [place] [address] Aug, [facility] [place] [facility] [address] [id number] [place] [address] Jul, [facility] [place] [facility] [address] [id number] [place] [address] Jul, [facility] [place] [facility] [address] [id number] [place] Jul, [facility] [place] [facility] [address] [id number] [place] [address] Jul, [facility] [place] [facility] [address] [id number] [place] [address] Apr, [facility] [place] [facility] [address] [id number] [place] [address] Apr, [facility] [place] [facility] [address] [id number] [place] [address] Mar, [facility] [place] [facility] [address] [id number] [place] [address] Mar, [facility] [place] [facility] [address] [id number] [place] [address] Mar, [facility] [place] [facility] [address] [id number], [place] [address] Mar, [facility] [place] [facility] [address] [id number] [place] [address] Feb, [facility] [place] [facility] [address] [id number] [place] [address] Feb, [facility] [place] [facility] [address] [id number] [place] Feb, [facility] [place] [facility] [address] [id number], [place] [address] Feb, [facility] [place] [facility] [address] [id number] [place] [address] Jan, [facility] [place] [facility] [address] [id number] [place] [address] Jan, [facility] [place] [facility] [address] [id number] [place] [address] Jan, [facility] [place] [facility] [address] [id number] [place] [address] Jan, [facility] [place] [facility] [address] [id number] [place] [address] Jan, [facility] [place] [facility] [address] [id number] [place] [address] Dec, [facility] [place] [facility] [address] [id number] [place] [address] Dec, [facility] [place] [facility] [address] [id number] [place] [address] Dec, [facility] [place] [facility] [address] [id number] [place] [address] Dec, [facility] [place] [facility] [address] [id number] [place] [address] Oct, [facility] [place] [facility] [address] [id number] [place] [address] Oct, [facility] [place] [facility] [address] [id number] [place] [address] Oct, [facility] [place] [facility] [address] [id number] [place] [address] Oct, [facility] [place] [facility] [address] [id number] [place] [address] September, [facility] [place] [facility] [address] [id number] [place] [address] September, [facility] [place] [facility] [address] [id number], [place] [address] September, [facility] [address] [id number], [place] [address] September, [facility] [address] [facility] [id number], [place] [address] September, [facility] [address] [id number], [place] [address] September, [facility] [address] [facility] [id number], [place] [address] September, [facility] [address] [id number], [place] [address] September, [facility] [address]00565100[place], [place] [address] September, [facility] [address]00565100[place], [place] [address] September, [facility] [address] [id number], [place] [address] Aug, [facility] [address] [id number], [place] [address] Aug, [facility] [address] [id number], [place] [address] Aug, [facility] [address] [id number], [place] [address] Aug, [facility] [address] [id number], [place] [address] Aug, IMMUNIZATIONS No Known Immunizations SOCIAL HISTORY Never Assessed REASON FOR VISIT Novolog Rx PLAN OF CARE VITAL SIGNS MEDICATIONS Unknown [...]
--- OUTSIDE RECORDS SUMMARY | 2018-08-28 11:49 | XMS REPORT ---
Author [facility] Address [facility] [place] [address] Care Team Providers Care Sanitation Lead Name Role Phone TOBY MILLS Unavailable PROBLEMS Type Condition ICD9-CM Code [id number] Code Onset Dates Condition Status SNOMED Code Assessment Type II diabetes mellitus E11.9 Jan, Active 65692484 Problem Adjustment disorder with anxious mood F43.22 Active 34898775 Problem Type II diabetes mellitus E11.9 Active 27667649 Problem Postsurgical hypothyroidism E89.0 Active 90092640 Problem Hyperlipemia E78.5 Active 94056928 Problem Hypothyroidism, unspecified E03.9 Active 03102153 Problem Anxiety F41.9 Active 02721083 ALLERGIES Substance Reaction Event Type Date Status Zoloft suicidal thoughts Drug Allergy Jan, Active Paxil suicidal thoughts Drug Allergy Jan, Active SOCIAL HISTORY No smoking Hx information available PLAN OF CARE VITAL SIGNS Height 61 in 2016-01-26 Weight 188.5 lbs 2016-01-26 Heart Rate 66 bpm 2016-01-26 Respiratory Rate 18 2016-01-26 BMI 35.61 kg/m2 2016-01-26 Blood pressure systolic 114 mmHg 2016-01-26 Blood pressure diastolic 70 mmHg 2016-01-26 MEDICATIONS Medication Instructions Dosage Frequency Start Date End Date Duration Status HydrOXYzine Pamoate 50 MG TAKE ONE CAPSULE BY MOUTH THREE TIMES DAILY 30 Active Ibuprofen by oral route Dec, Active Synthroid 150 MCG Orally Once a day take 1 tablet (150 mcg) by oral route once daily 24h Active AZO Cranberry Urinary Tract 250-60 MG Orally Once a day 2 cap 24h Active Bactrim DS 800-160 MG Orally Twice a day 1 tablet 12h Jan, Active Multivitamin Orally Once a day 1 tab 24h Active Lisinopril 2.5 MG Orally Once a day 1 tablet by Oral route 1 time per day 24h 90 days Active Glimepiride 2 MG Orally 2 times a day TAKE ONE TABLET IN THE MORNING AND ONE- HALF TABLET AT DINNER. 12h 90 days Active RESULTS Name Result Date Reference Range A1C (IN HOUSE) 2016-01-26 A1C IN HOUSE 6.8 4.3 - 5.6 % Previous A1c 6.2 Lot [id number] Exp date 11/19 MICROALBUMIN, URINE (IN HOUSE) 2016-01-26 MICROALBUMIN normal Lot # [id number] Exp date 03/21 Clarity clear Color yellow ALB 10mg/L CRE 100mg/dL A:C (IN HOUSE) <30mg/g Control Control Lot # Exp date PROCEDURES Procedure Date Ordered Related Diagnosis Body Site GLYCATED HEMOGLOBIN TEST Jan 26, 2016 MICROALBUMIN, SEMIQUANT Jan 26, 2016 Office Visit, Est Pt., Level 3 Jan 26, 2016 IMMUNIZATIONS No Known Immunizations
--- OUTSIDE RECORDS SUMMARY | 2018-08-28 11:49 | XMS REPORT ---
Author TOBY Izaguirre [facility] Address [address] [place] [address] Care Team Providers Care Coin Dealer Name Role Phone TOBY MILLS Unavailable PROBLEMS Type Condition ICD9-CM Code [id number] Code Onset Dates Condition Status SNOMED Code Problem Adjustment disorder with anxious mood F43.22 Active 35307880 Problem Type II diabetes mellitus E11.9 Active 38456489 Problem Postsurgical hypothyroidism E89.0 Active 46751844 Problem Hyperlipemia E78.5 Active 76414180 Problem Hypothyroidism, unspecified E03.9 Active 24793843 Problem Anxiety F41.9 Active 49896983 ALLERGIES No Known Allergies SOCIAL HISTORY No smoking Hx information available PLAN OF CARE VITAL SIGNS MEDICATIONS Medication Instructions Dosage Frequency Start Date End Date Duration Status Bactrim DS 800-160 MG Orally Twice a day 1 tablet 12h 19 Jan, 2016 Active RESULTS No Results PROCEDURES No Known procedures IMMUNIZATIONS No Known Immunizations
--- NOTE | 2018-08-28 11:50 | ED Chest Pain ---
General Stated Complaint: NAUSEA;CHEST PAIN Source: patient Exam Limitations: no limitations History of Present Illness Date Seen by Provider: Aug 28, 2018 Time Seen by Provider: 11:46 Initial Comments To ER by private vehicle with reports of nausea and chest pain. The chest pain she describes as a discomfort that is tight. She has some mild shortness of breath. She reports discomfort radiating up into her throat and neck. She states that she typically has this chest pain every night when going to bed and has had this for several months. She takes one or 2 drinks either a hard seltzer or whiskey she states and then goes to bed. She awakened the next morning without pain. However today she awakened with pain and nausea. She denies fevers chills or body aches or recent illness. The pain is better when she sits up and leans forward. She has a history of high cholesterol and diabetes, she is a nonsmoker. Primary care is Izabel Ayala at [facility]. Timing/Duration: getting worse, intermittent Severity/Quality: moderate Location: central Radiation: jaw, neck Activities at Onset: none ASA po KITCHENWHERE MAKER: No NTG SL KITCHENWHERE MAKER: No Associated Symptoms: nausea/vomiting Allergies and Home Medications Allergies Uncoded Allergies: "antidepressant" (Allergy, Unknown, 08/28/18) Patient Home Medication List Home Medication List Reviewed: Yes Review of Systems Review of Systems Constitutional: see HPI; No chills EENTM: No Symptoms Reported Respiratory: No Symptoms Reported Cardiovascular: See HPI, Chest Pain Gastrointestinal: See HPI; Denies Abdominal Pain; Nausea Genitourinary: No Symptoms Reported Musculoskeletal: no symptoms reported Skin: no symptoms reported Psychiatric/Neurological: No Symptoms Reported Endocrine: No Symptoms Reported Physical Exam Vital Signs Vital Signs - First Documented 08/28/18 12:26 Temp 97.8 Pulse 79 Resp 18 B/P (MAP) 131/79 (96) Pulse Ox 100 Capillary Refill : Height, Weight, BMI Height: '" Weight: lbs. oz. kg; BMI Method: General Appearance: No Apparent Distress, WD/WN, Anxious HEENT: PERRL/EOMI, TMs Normal Neck: Full Range of Motion, Normal Inspection Respiratory: No Accessory Muscle Use, No Respiratory Distress Cardiovascular: Regular Rate, Rhythm, Normal Peripheral Pulses Gastrointestinal: Normal Bowel Sounds, Non Tender, Soft Extremity: Normal Capillary Refill, Normal Inspection Neurologic/Psychiatric: Alert, Oriented x3 Skin: Normal Color, Warm/Dry Progress/Results/Core Measures Results/Orders Lab Results Laboratory Tests Test 08/28/18 11:55 Range/Units White Blood Count 6.3 4.3-11.0 10^3/uL Red Blood Count 4.72 4.35-5.85 10^6/uL Hemoglobin 13.8 11.5-16.0 G/DL Hematocrit 41 35-52 % Mean Corpuscular Volume 86 80-99 FL Mean Corpuscular Hemoglobin 29 25-34 PG Mean Corpuscular Hemoglobin Concent 34 32-36 G/DL Red Cell Distribution Width 12.5 10.0-14.5 % Platelet Count 267 130-400 10^3/uL Mean Platelet Volume 10.4 7.4-10.4 FL Neutrophils (%) (Auto) 63 42-75 % Lymphocytes (%) (Auto) 26 12-44 % Monocytes (%) (Auto) 9 0-12 % Eosinophils (%) (Auto) 1 0-10 % Basophils (%) (Auto) 1 0-10 % Neutrophils # (Auto) 4.0 1.8-7.8 X 10^3 Lymphocytes # (Auto) 1.7 1.0-4.0 X 10^3 Monocytes # (Auto) 0.6 0.0-1.0 X 10^3 Eosinophils # (Auto) 0.1 0.0-0.3 10^3/uL Basophils # (Auto) 0.0 0.0-0.1 10^3/uL Erythrocyte Sedimentation Rate 14 0-20 MM/HR Prothrombin Time 13.4 12.2-14.7 SEC INR Comment 1.0 0.8-1.4 Activated Partial Thromboplast Time 29 24-35 SEC D-Dimer 0.74 H 0.00-0.49 UG/ML Urine Color YELLOW Urine Clarity SLIGHTLY CLOUDY Urine pH 8 5-9 Urine Specific [place] 1.010 L 1.016-1.022 Urine Protein NEGATIVE NEGATIVE Urine Glucose (UA) NEGATIVE NEGATIVE Urine Ketones NEGATIVE NEGATIVE Urine Nitrite NEGATIVE NEGATIVE Urine Bilirubin NEGATIVE NEGATIVE Urine Urobilinogen NORMAL NORMAL MG/DL Urine Leukocyte Esterase NEGATIVE NEGATIVE Urine RBC (Auto) NEGATIVE NEGATIVE Urine RBC NONE /HPF Urine WBC 0-2 /HPF Urine Squamous Epithelial Cells 0-2 /HPF Urine Crystals NONE /LPF Urine Bacteria FEW H /HPF Urine Casts NONE /LPF Urine Mucus NEGATIVE /LPF Urine Culture Indicated NO Sodium Level 139 135-145 MMOL/L Potassium Level 4.0 3.6-5.0 MMOL/L Chloride Level 107 98-107 MMOL/L Carbon Dioxide Level 21 21-32 MMOL/L Anion Gap 11 5-14 MMOL/L Blood Urea Nitrogen 9 7-18 MG/DL Creatinine 0.83 0.60-1.30 MG/DL Estimat Glomerular Filtration Rate > 60 BUN/Creatinine Ratio 11 Glucose Level 166 H 70-105 MG/DL Calcium Level 10.0 8.5-10.1 MG/DL Corrected Calcium 9.6 8.5-10.1 MG/DL Magnesium Level 2.1 1.8-2.4 MG/DL Total Bilirubin 0.9 0.1-1.0 MG/DL Aspartate Amino Transf (AST/SGOT) 16 5-34 U/L Alanine Aminotransferase (ALT/SGPT) 15 0-55 U/L Alkaline Phosphatase 71 40-136 U/L Myoglobin 28.5 10.0-92.0 NG/ML Troponin I < 0.028 <0.028 NG/ML C-Reactive Protein High Sensitivity 0.11 0.00-0.50 MG/DL B-Type Natriuretic Peptide 19.6 <100.0 PG/ML Total Protein 7.9 6.4-8.2 GM/DL Albumin 4.5 3.2-4.5 GM/DL Lipase 27 8-78 U/L Urine Opiates Screen NEGATIVE NEGATIVE Urine Oxycodone Screen NEGATIVE NEGATIVE Urine Methadone Screen NEGATIVE NEGATIVE Urine Propoxyphene Screen NEGATIVE NEGATIVE Urine Barbiturates Screen NEGATIVE NEGATIVE Ur Tricyclic Antidepressants Screen NEGATIVE NEGATIVE Urine Phencyclidine Screen NEGATIVE NEGATIVE Urine Amphetamines Screen NEGATIVE NEGATIVE Urine Methamphetamines Screen NEGATIVE NEGATIVE Urine Benzodiazepines Screen NEGATIVE NEGATIVE Urine Cocaine Screen NEGATIVE NEGATIVE Urine Cannabinoids Screen NEGATIVE NEGATIVE Serum Alcohol < 10 <10 MG/DL My Orders Orders - XENA FULTON APRN Ekg Tracing (08/28/18 11:40) Cbc With Automated Diff (08/28/18 11:44) Magnesium (08/28/18 11:44) Chest 1 View, Ap/Pa Only (08/28/18 11:44) Cardiac Profile 1 (08/28/18 11:44) Comprehensive Metabolic Panel (08/28/18 11:44) Myoglobin Serum (08/28/18 11:44) Protime With Inr (08/28/18 11:44) Partial Thromboplastin Time (08/28/18 11:44) O2 (08/28/18 11:44) Monitor-Rhythm Ecg Trace Only (08/28/18 11:44) Lipid Panel (08/29/18 06:00) Ed Iv/Invasive Line Start (08/28/18 11:44) Lipase (08/28/18 11:44) BNP (08/28/18 11:44) Fibrin Degradation Products (08/28/18 11:44) Erythrocyte Sedimentation Rate (08/28/18 11:45) Hs C Reactive Protein (08/28/18 11:45) Aspirin Chewable Tablet (Baby Aspirin Ch (08/28/18 12:00) Nitroglycerin 0.4 Mg Btl 25's (Nitrostat (08/28/18 12:00) Ondansetron Injection (Zofran Injectio (08/28/18 12:00) Alcohol (08/28/18 11:55) Ua Culture If Indicated (08/28/18 11:56) Drug Screen Stat (Urine) (08/28/18 11:56) Ct Angio Chest W (08/28/18 12:16) Antacid Suspension (Mylanta Suspension (08/28/18 12:30) Lidocaine 2% Viscous 15 Ml (Xylocaine Vi (08/28/18 12:30) Iohexol Injection (Omnipaque 350 Mg/Ml 1 (08/28/18 12:30) Received Contrast (Hold Metformin- Contr (08/28/18 12:30) Ondansetron Injection (Zofran Injectio (08/28/18 13:15) Ketorolac Injection (Toradol Injection) (08/28/18 13:15) Echo W Doppler/Color Flow (08/28/18 13:24) Pantoprazole Injection (Protonix Injecti (08/28/18 13:45) Morphine Injection (Morphine Injection (08/28/18 13:33) Medications Given in ED Current Medications Medications Dose Ordered Sig/Wes Route Start Time Stop Time Status Last Admin Dose Admin Al Hydrox/Mg Hydrox/Simethicone 30 ml ONCE ONCE PO 08/28/18 12:30 08/28/18 12:31 DC 08/28/18 12:46 30 ML Aspirin 324 mg ONCE ONCE PO 08/28/18 12:00 08/28/18 12:01 DC 08/28/18 12:01 324 MG Ketorolac Tromethamine 30 mg ONCE ONCE IVP 08/28/18 13:15 08/28/18 13:16 DC 08/28/18 13:12 30 MG Lidocaine HCl 10 ml ONCE ONCE PO 08/28/18 12:30 08/28/18 12:31 DC 08/28/18 12:46 10 ML Nitroglycerin 1 TAB Q 5 MIN X 3 NEEDED PRN SL 08/28/18 12:00 08/28/18 12:02 0.4 MG Ondansetron HCl 4 mg ONCE ONCE IVP 08/28/18 12:00 08/28/18 12:01 DC 08/28/18 12:02 4 MG Ondansetron HCl 4 mg ONCE ONCE IVP 08/28/18 13:15 08/28/18 13:16 DC 08/28/18 13:07 4 MG Pantoprazole 40 mg ONCE ONCE IV 08/28/18 13:45 08/28/18 13:46 DC 08/28/18 13:44 40 MG Vital Signs/I&O 08/28/18 12:26 Temp 97.8 Pulse 79 Resp 18 B/P (MAP) 131/79 (96) Pulse Ox 100 Departure Communication (Admissions) Time/Spoke to Admitting Phy: 13:20 1317-her pain reduced from 8 out of 10 on arrival to 6 out of 10 after 1 sublingual nitroglycerin glycerin. We will give her a GI cocktail which resulted in some nausea but no improvement in pain. Her pain currently is at 8 out of 10. I just gave Toradol 30 mg IV. I withheld the second nitroglycerin as her blood pressure is 105/70. Her CT angiogram unremarkable. Her EKG shows no ST segment changes, normal intervals. She has had a rather significant nonproductive cough during ER stay and she also reports a cough home. I discussed with Dr. Mendes cardiology, recommends admission and observation ICU, aspirin 81 mg daily, morphine for pain control, Protonix daily, IV fluids normal saline at 100 cc an hour, echocardiogram, repeat EKG in a few hours and empirically starting azithromycin for presumed bronchitis.Her HEART score is 3, low risk of major adverse cardiac events of 0.9-1.7% per HEART study. 1410-he did receive morphine for chest pain rated a 5 out of 10. Simba that her pain subsequently increased to 9.5 out of 10 after the morphine. She appears anxious and does admit to some anxiety.0.5mg Lorazepam ordered. Repeat EKG ordered and being done now. Dr. Hinson notified. Vitals are stable. EKG shows no st segment changes, normal rate/rhythm, no changes from EKG on arrival. Impression Primary Impression: Chest pain Qualified Codes: R07.9 - Chest pain, unspecified Disposition: ADMITTED INPATIENT Condition: Stable Admissions Decision to Admit Reason: Admit from ER (General) Decision to Admit/Date: Aug 28, 2018 Time/Decision to Admit Time: 13:20 XENA FULTON APRN Aug 28, 2018 11:50
--- OUTSIDE RECORDS SUMMARY | 2018-08-28 11:50 | XMS REPORT ---
Author Author TOBY MILLS [facility] Address [address] [place] [address] Care Team Providers Care Mounter Clarinets Name Role Phone TOBY MILLS Unavailable PROBLEMS Type Condition ICD9-CM Code [id number] Code Onset Dates Condition Status SNOMED Code Problem Statin intolerance Z78.9 Active 67251335 Problem Hyperlipemia E78.5 Active 90772011 Problem Postsurgical hypothyroidism E89.0 Active 17225762 Problem Dental examination Z01.20 Active 573191236 Problem Obesity (BMI 30-39.9) E66.9 Active 629789435 Problem Hypothyroidism, unspecified E03.9 Active 11655434 Problem Anxiety F41.9 Active 56581707 Problem Adjustment disorder with anxious mood F43.22 Active 95958162 Problem Type II diabetes mellitus E11.9 Active 01556504 ALLERGIES Unknown Allergies SOCIAL HISTORY No smoking Hx information available PLAN OF CARE VITAL SIGNS MEDICATIONS Medication Instructions Dosage Frequency Start Date End Date Duration Status Welchol 625 MG Orally Twice a day 3 tablets with meals 12h May, 30 day(s) Active Tradjenta 5 MG Orally Once a day 1 tablet 24h May, 30 day(s) Active RESULTS No Results PROCEDURES No Known procedures IMMUNIZATIONS No Known Immunizations
--- OUTSIDE RECORDS SUMMARY | 2018-08-28 11:50 | XMS REPORT ---
Author Author TOBY MILLS [facility] Address [address] [place] [address] Care Team Providers Care Reservation Sales Agent Name Role Phone TOBY MILLS Unavailable PROBLEMS Type Condition ICD9-CM Code HDD84-YS Code Onset Dates Condition Status SNOMED Code Problem Postsurgical hypothyroidism E89.0 Active 37208177 Problem Hypothyroidism, unspecified E03.9 Active 75768445 Problem Type II diabetes mellitus E11.9 Active 75949178 Problem Statin intolerance Z78.9 Active 95123204 Problem Hyperlipemia E78.5 Active 62580159 Problem Anxiety F41.9 Active 72166838 Problem Type 2 diabetes mellitus with hyperglycemia E11.65 Active 860465189624288 Problem Type 2 diabetes mellitus with other specified complication E11.69 Active 68043015 Problem Obesity (BMI 30-39.9) E66.9 Active 111683367 Problem Adjustment disorder with anxious mood F43.22 Active 31129619 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 Active 292396375 Problem Uncontrolled type 2 diabetes mellitus without complication, without long-term current use of insulin E11.65 Active 518876123 ALLERGIES No Information ENCOUNTERS Encounter Location Date Diagnosis [address] [id number][place] [address] Jul, BMI 40.0-44.9, adult Z68.41 ; Hyperlipemia E78.5 ; Hypothyroidism , unspecified E03.9 ; Uncontrolled type 2 diabetes mellitus without complication , without long-term current use of insulin E11.65 ; Statin intolerance Z78.9 ; Pain of left foot M79.672 and Pain in right foot M79.[address] [id number], [place] [address] May, Type 2 diabetes mellitus with other specified complication E11.[address] [id number], [place] [id number] Apr, [facility] [address] [id number], [place] [address] Apr, Type 2 diabetes mellitus with other specified complication E11.69 ; Type 2 diabetes mellitus with hyperglycemia E11.65 and intermediate current use of insulin Z79.4 [facility] [address] [id number], [place] [address]002 Mar, Hyperlipemia E78.5 ; Encounter for immunization Z23 and Uncontrolled type 2 diabetes mellitus without complication, without long-term current use of insulin E11.65 [facility] [address] [id number], [place] [address] Feb, [facility] [address] [id number], [place] [address] Jan, Type II diabetes mellitus E11.9 [facility] [address] [id number], [place] 759055882 Jan, Type II diabetes mellitus E11.9 [facility] [address] [id number], [place] [id number] Dec, [facility] [address] [id number], [place] [address] Dec, Type II diabetes mellitus E11.9 ; Obesity (BMI 30-39.9) E66.9 and Dietary counseling Z71.3 [facility] [address] [id number], [place] [address]36[address] Dec, Dental examination Z01.20 [facility] [address] [id number], [place] [address] Nov, Acute cystitis without hematuria N30.00 [facility] [address] [facility] [id number] [place] [address]5984 September, Dental examination Z01.20 [facility] [address] [id number], [place] [address]621422 September, Type II diabetes mellitus E11.9 ; Hypothyroidism, unspecified E03.9 ; Hyperlipemia E78.5 ; Dietary counseling Z71.3 and Exercise counseling Z71.89 [facility] [address] [id number] [place] [address] Jun, [facility] [address] [facility] [id number] [place] [address] May, [facility] [address] [id number], [place] 833[address]16[address] May, [facility] [address] [id number], [place] 84[address]85171 May, Type II diabetes mellitus E11.9 [facility] [address] [facility] [id number] [address] May, [facility] [address] [id number], [place] 087959706 May, Postsurgical hypothyroidism E89.0 ; Type II diabetes mellitus E11.9 ; Hyperlipemia E78.5 and Acute non-recurrent maxillary sinusitis J01.00 [facility] [address] [id number], [place] 77[address]18785 Apr, [facility] [address] [id number], [place] 2877[address] Mar, Acute nasopharyngitis J00 [facility] [address] [id number], [place] 580556880 Jan, Type II diabetes mellitus E11.9 [facility] [address] [id number], [place] [id number] Jan, [facility] [address] [id number], [place] 592912871 Jan, Dysuria R30.0 ; Right flank pain R10.9 and Urinary frequency R35.[address] [facility] [address] [id number], [place] 89[address]75712 Jan, Adjustment disorder with anxious mood F43.22 [facility] [address] [id number], [place] 3878[address]200 Jul, Acute non-recurrent pansinusitis J01.40 [facility] [address]00565100[place] [address] Jun, [facility] [address] [place] [address] AV [id number], [place] [id number] Jun, Type II diabetes mellitus E11.9 ; Hyperlipemia E78.5 ; Hypothyroidism, unspecified E03.9 and Obesity E66.[address] [id number], [place] 777407747 Feb, Anxiety F41.9 and Adverse reaction to SSRI antidepressant drug T43.225A [address] [id number], [place] [address]68[address] Jan, [address] [id number], [place] 983577189 Jan, Irritability 799.22 ; Well woman exam with routine gynecological exam V72.31 ; Breast cancer screening V76.10 and History of hysterectomy for indication other than malignancy V88.[address] [id number], [place] 608231087 Dec, Type II diabetes mellitus 250.00 ; Postsurgical hypothyroidism 244.0 ; Right flank pain 789.09 and Obesity 278.[address] [id number], [place] 933120645 September, [facility] [id number] [place] [address]- [address] September, [facility] [id number] [place] [address]- 1553 Aug, [facility] [id number] [place] [address]- 6960 Aug, [facility] [id number] [place] [address] 97145686- 4961 Jul, [facility] [id number] [place] [address]- 6809 Jul, [facility] [place] [facility] [address] [id number] [place] [address]- 4726 Jul, [facility] [place] [facility] [address] [id number] [place] [address]65 Jul, [facility] [place] [facility] [address] [id number] [place] [address]- 2052 Apr, [facility] [place] [facility] [address] [id number] [place] [address]- 4767 Apr, [facility] [place] [facility] [address] [id number] [place] [address]- 3604 Mar, [facility] [place] [facility] [address] [id number] [place] [address]- 7861 Mar, [facility] [place] [facility] [address] [id number] [place] [address]- 7909 Mar, [facility] [place] [facility] [address] [id number] [place] [address]- 1415 Mar, [facility] [place] [facility] [address] [id number] [place] [address]- 3502 Feb, [facility] [place] [facility] [address] [id number] [place] [address]- 1481 Feb, [facility] [place] [facility] [address] [id number] [place] [address]- 4499 Feb, [facility] [place] [facility] [address] [id number] [place] [address]- [address] Feb, [facility] [place] [facility] [address] [id number] [place] [address]- 73[address] 08 Jan, 2014 [facility] [place] [facility] [address] [id number] [place] [address]- 8100 08 Jan, 2014 [facility] [place] [facility] [address] [id number] [place] [address]- 9851 05 Jan, 2014 [facility] [place] [facility] [address] [id number] [place] [address]- 1800 Jan, [facility] [place] [facility] [address] [id number] [place] [address]- 5475 Jan, [facility] [place] [facility] [address] [id number] [place] [address]- 9882 Dec, [facility] [place] [facility] [address] [id number] [place] [address]- 1703 Dec, [facility] [place] [facility] [address] [id number] [place] [address]- 0209 Dec, [facility] [place] [facility] [address] [id number] [place] [address]- 5512 Dec, [facility] [place] [facility] [address] [id number] [place] [address]- 3674 Oct, [facility] [place] [facility] [address] [id number] [place] [address]- 3046 Oct, [facility] [address] [id number] [place] [address]- 3744 Oct, [facility] [place] [facility] [address] [id number] [place] [address]- 3943 Oct, [facility] [place] [facility] [address] [id number] [place] [address]- 3061 September, [facility] [place] [facility] [address] [id number] [place] [address]- 4543 September, [facility] [place] [facility] [address] [id number] [place] [address]- 0983 September, [facility] [place] [facility] [address] [id number] [place]- 5[address] September, [facility] [place] [facility] [address] [id number] [place] [address]- 9668 September, [facility] [place] [facility] [address] [id number] [place]- 1248 September, [facility] [address] [id number] [address]- 6089 September, [facility] [address]00565100[place] [address]- 2[address] September, [facility] [address] [id number] [address]- 2731 September, [facility] [address]00565100[place] [address]- 9578 September, [facility] [address] [id number] [address]- 6102 Aug, [facility] [address]00565100[place]- 0746 Aug, [facility] [address]00565100[place] [address]- 6847 Aug, [facility] [address]00565100[place] [address]- 1838 Aug, [facility] [address] [id number] [address]- 7820 Aug, IMMUNIZATIONS No Known Immunizations SOCIAL HISTORY Never Assessed REASON FOR VISIT PALS PLAN OF CARE VITAL SIGNS MEDICATIONS Medication Instructions Dosage Frequency Start Date End Date Duration Status Actos 45 MG Orally Once a day (PALS) 1 tablet Dec, Active RESULTS No Results PROCEDURES No Known [...]
--- OUTSIDE RECORDS SUMMARY | 2018-08-28 11:50 | XMS REPORT ---
Author Author TOBY MILLS [facility] Address [address] [place] [address] Care Team Providers Care Communications Manager Name Role Phone TOBY MILLS Unavailable PROBLEMS Type Condition ICD9-CM Code YNT07-DX Code Onset Dates Condition Status SNOMED Code Problem Statin intolerance Z78.9 Active 17319148 Problem Hyperlipemia E78.5 Active 59663486 Problem Postsurgical hypothyroidism E89.0 Active 46540505 Problem Dental examination Z01.20 Active 358764674 Problem Obesity (BMI 30-39.9) E66.9 Active 448106393 Problem Hypothyroidism, unspecified E03.9 Active 20631780 Problem Anxiety F41.9 Active 19032743 Problem Adjustment disorder with anxious mood F43.22 Active 20332137 Problem Type II diabetes mellitus E11.9 Active 87878704 ALLERGIES Unknown Allergies SOCIAL HISTORY No smoking Hx information available PLAN OF CARE VITAL SIGNS MEDICATIONS Unknown Medications RESULTS No Results PROCEDURES No Known procedures IMMUNIZATIONS No Known Immunizations
--- OUTSIDE RECORDS SUMMARY | 2018-08-28 11:50 | XMS REPORT ---
Author Author CAROLINE JACOBO [facility] Address Unknown Care Team Providers Care Engine Emission Technician Name Role Phone CAROLINE JACOBO Unavailable PROBLEMS Type Condition ICD9-CM Code BSN28-XJ Code Onset Dates Condition Status SNOMED Code Problem Postsurgical hypothyroidism E89.0 Active 91222834 Problem Hypothyroidism, unspecified E03.9 Active 59627077 Problem Type II diabetes mellitus E11.9 Active 02788254 Problem Statin intolerance Z78.9 Active 18716569 Problem Hyperlipemia E78.5 Active 58896306 Problem Anxiety F41.9 Active 57240359 Problem Type 2 diabetes mellitus with hyperglycemia E11.65 Active 900771378201475 Problem Type 2 diabetes mellitus with other specified complication E11.69 Active 03901188 Problem Obesity (BMI 30-39.9) E66.9 Active 630168678 Problem Adjustment disorder with anxious mood F43.22 Active 33962744 Problem group home current use of insulin Z79.4 Active 539034192 Problem Uncontrolled type 2 diabetes mellitus without complication, without long-term current use of insulin E11.65 Active 751435663 ALLERGIES Substance Reaction Event Type Date Status Zoloft suicidal thoughts Drug Allergy September, Active Penicillin G Benzathine rash Drug Allergy September, Active Paxil suicidal thoughts Drug Allergy September, Active ENCOUNTERS Encounter Location Date Diagnosis [facility] [address] [id number], [place] [address] Jul, BMI 40.0-44.9, adult Z68.41 ; Hyperlipemia E78.5 ; Hypothyroidism , unspecified E03.9 ; Uncontrolled type 2 diabetes mellitus without complication , without long-term current use of insulin E11.65 ; Statin intolerance Z78.9 ; Pain of left foot M79.672 and Pain in right foot M79.[address] [facility] [address] [id number] [place] [address] May, Type 2 diabetes mellitus with other specified complication E11.[address] [facility] [address] [id number], [place] [address]470012 Apr, [facility] [address] [id number], [place] [address] Apr, Type 2 diabetes mellitus with other specified complication E11.69 ; Type 2 diabetes mellitus with hyperglycemia E11.65 and academic affairs dean current use of insulin Z79.4 [facility] [address] [id number], [place] [address] Mar, Hyperlipemia E78.5 ; Encounter for immunization Z23 and Uncontrolled type 2 diabetes mellitus without complication, without long-term current use of insulin E11.65 [facility] [address] [id number], [place] 832436043 Feb, [facility] [address] [facility] [id number], [place] [id number] Jan, Type II diabetes mellitus E11.9 [facility] [address] [id number], [place] 920161970 Jan, Type II diabetes mellitus E11.9 [facility] [address] [facility] [address] [id number], [place] [id number] Dec, [facility] [address] [facility] [address] [id number], [place] [address]44668[address] Dec, Type II diabetes mellitus E11.9 ; Obesity (BMI 30-39.9) E66.9 and Dietary counseling Z71.3 [facility] [address] [id number], [place] 410273290 Dec, Dental examination Z01.20 [facility] [address] [id number], [place] [id number] Nov, Acute cystitis without hematuria N30.00 [facility] [address] [facility] [id number], [place] [id number] September, Dental examination Z01.20 [facility] [address] [id number], [place] [id number] September, Type II diabetes mellitus E11.9 ; Hypothyroidism, unspecified E03.9 ; Hyperlipemia E78.5 ; Dietary counseling Z71.3 and Exercise counseling Z71.89 [facility] [address] [id number], [place] 069201917 Jun, [facility] [address] [facility] [id number], [place] 68525316- 8232 May, [facility] [address] [id number], [place] 626898034 May, [facility] [address] [id number], [place] 737[address]1322 May, Type II diabetes mellitus E11.9 [facility] [address] [facility] [id number], [place] 919809- 1551 May, [facility] [address] [id number], [place] 411152253 May, Postsurgical hypothyroidism E89.0 ; Type II diabetes mellitus E11.9 ; Hyperlipemia E78.5 and Acute non-recurrent maxillary sinusitis J01.00 [facility] [address] [id number], [place] 569574481 Apr, [facility] [address] [id number], [place] 520036338 Mar, Acute nasopharyngitis J00 [facility] [address] [id number], [place] 969642103 Jan, Type II diabetes mellitus E11.9 [facility] [address] [id number], [place] 524027727 Jan, [facility] [address] [id number], [place] 925791712 Jan, Dysuria R30.0 ; Right flank pain R10.9 and Urinary frequency R35.0 [facility] [address] [id number], [place] 166916071 Jan, Adjustment disorder with anxious mood F43.[address] [id number], [place] 262396173 Jul, Acute non-recurrent pansinusitis J01.40 [facility] [address] [facility] [id number], [place] [address]- [address]87 Jun, [address] [id number], [place] 033978198 Jun, Type II diabetes mellitus E11.9 ; Hyperlipemia E78.5 ; Hypothyroidism, unspecified E03.9 and Obesity E66.[address] [id number], [place] 045267402 Feb, Anxiety F41.9 and Adverse reaction to SSRI antidepressant drug T43.225A [address] [id number], [place] 218967070 Jan, [address] [id number], [place] 045443695 Jan, Irritability 799.22 ; Well woman exam with routine gynecological exam V72.31 ; Breast cancer screening V76.10 and History of hysterectomy for indication other than malignancy V88.[address] [id number], [place] 00486[address] Dec, Type II diabetes mellitus 250.00 ; Postsurgical hypothyroidism 244.0 ; Right flank pain 789.09 and Obesity 278.[address] [id number], [place] 562831173 September, [facility] [address] [id number], [place] [address]- 7587 September, [facility] [id number] [place] [address] 12843- 7079 Aug, [facility] [address]00565100[place], [place] [address]- 4438 Aug, [facility] [id number] [place] [address] 93076- 8547 Jul, [facility] [place] [facility] [address] [id number] [place] [address]- [address] 10 Jul, 2014 [facility] [place] [facility] [address] [id number] [place] [address]- 2899 Jul, [facility] [place] [facility] [address] [id number] [place] [address]- 4568 Jul, [facility] [place] [facility] [address] [id number] [place] [address]- 2071 Apr, [facility] [place] [facility] [address] [id number] [place] [address]- 8726 Apr, [facility] [place] [facility] [address] [id number] [place] [address]- 9088 Mar, [facility] [place] [facility] [address] [id number] [place] [address]- 5850 Mar, [facility] [place] [facility] [address] [id number] [place] [address]- 7917 Mar, [facility] [place] [facility] [address] [id number] [place] [address]- 7089 Mar, [facility] [place] [facility] [address] [id number] [place] [address]- 2827 Feb, [facility] [place] [facility] [address] [id number], [place] [address]- 2433 Feb, [facility] [place] [facility] [address] [id number], [place] [address]- 2738 Feb, [facility] [place] [facility] [address] [id number] [place] [address]- 0702 Feb, [facility] [place] [facility] [address] [id number] [place] [address]- 8983 08 Jan, 2014 [facility] [place] [facility] [address] [id number], [place] [address]- 0901 08 Jan, 2014 [facility] [place] [facility] [address] [id number], [place] [address]- 5062 Jan, [facility] [place] [facility] [address] [id number] [place] [address]- 1318 Jan, [facility] [place] [facility] [address] [id number] [place] [address]- 4205 Jan, [facility] [place] [facility] [address] [id number] [place] [address]- 9119 Dec, [facility] [place] [facility] [address] [id number] [place] [address]- 9237 Dec, [facility] [place] [facility] [address] [id number] [place] [address]- 6788 Dec, [facility] [place] [facility] [address] [id number] [place] [address]- 0771 Dec, [facility] [place] [facility] [address] [id number] [place] [address]- 0324 Oct, [facility] [place] [facility] [address] [id number] [place] [address]- 9028 Oct, [facility] [place] [facility] [address] [id number] [place] [address]- 1101 Oct, [facility] [place] [facility] [address] [id number] [place] [address]- 0828 Oct, [facility] [place] [facility] [address] [id number] [place] [address]- 0496 September, [facility] [place] [facility] [address] [id number] [place] [address]- 3691 September, [facility] [place] [facility] [address] [id number] [place] [address]- 2981 September, [facility] [place] [facility] [address] [id number] [place] [address]- 0356 September, [facility] [place] [facility] [address] [id number] [place] [address]- 5836 September, [facility] [place] [facility] [address] [facility] [id number], [place] [address]- 1913 September, [facility] [address] [facility] [id number], [place] 434425- 4924 September, [facility] [address] [facility] [id number], [place] [address]- 7434 September, [facility] [address] [facility] [id number], [place] 852894- 7443 September, [facility] [address] [facility] [id number], [place] [address]- 4027 September, [facility] [address] [facility] [id number], [place] [address]- 5553 Aug, [facility] [address] [facility] [id number], [place] [address] Aug, [facility] [address] [id number], [place] [address] Aug, [facility] [address] [facility] [id number], [place] [address] Aug, [facility] [address] [id number], [place] [address] Aug, IMMUNIZATIONS No Known Immunizations SOCIAL HISTORY Never Assessed REASON FOR VISIT MELINDA PLAN OF CARE VITAL SIGNS Height 61 in 2016-09-26 Blood pressure systolic 116 mmHg 2016-09-26 Blood pressure diastolic 67 mmHg 2016-09-26 MEDICATIONS Medication Instructions Dosage Frequency Start Date End Date Duration Status Mucinex Active OneTouch Ultra Test - CHECK BLOOD SUGAR ONCE DAILY. 90 Active Multivitamin Orally Once a day 1 tab 24h Active AZO Cranberry Urinary Tract 250-60 MG Orally Once a day 2 cap 24h Active Aspirin 325 MG Orally Once a day 1 tablet 24h Active Tradjenta 5 mg Orally Once a day 1 tablet 24h May, Active Glimepiride 2 MG Orally am and pm 1 tablet Active HydrOXYzine Pamoate 50 MG TAKE ONE CAPSULE BY MOUTH THREE TIMES DAILY 30 Active Glucometer 1 glucometer check blood sugar daily May, Active OneTouch Delica Lancets Fine - CHECK BLOOD SUGAR ONCE DAILY. 90 Active Welchol 625 MG Orally 2 times a day TAKE 3 TABLETS TWICE DAILY WITH MEALS 12h Active Ibuprofen by oral route Dec, Active Lisinopril 2.5 MG Orally Once a day 1 tablet by Oral route 1 time per day 24h Active Synthroid 150 MCG Orally Once a day 1 tablet on an empty stomach in the morning 24h Active RESULTS No Results PROCEDURES Procedure Date Ordered Result Body Site Dental no charge September 26, 2016 INSTRUCTIONS MEDICATIONS ADMINISTERED No Known Medications [...]
--- OUTSIDE RECORDS SUMMARY | 2018-08-28 11:50 | XMS REPORT ---
Author Author TOBY MILLS [facility] Address [address] [place] [address] Care Team Providers Care Binding Printer Name Role Phone TOBY MILLS Unavailable PROBLEMS Type Condition ICD9-CM Code CKV18-DZ Code Onset Dates Condition Status SNOMED Code Problem Postsurgical hypothyroidism E89.0 Active 39096631 Problem Hypothyroidism, unspecified E03.9 Active 14118926 Problem Type II diabetes mellitus E11.9 Active 06519416 Problem Statin intolerance Z78.9 Active 33359024 Problem Hyperlipemia E78.5 Active 55090844 Problem Anxiety F41.9 Active 25045003 Problem Type 2 diabetes mellitus with hyperglycemia E11.65 Active 479022338876386 Problem Type 2 diabetes mellitus with other specified complication E11.69 Active 46415928 Problem Obesity (BMI 30-39.9) E66.9 Active 707682502 Problem Adjustment disorder with anxious mood F43.22 Active 76684058 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 Active 805232263 Problem Uncontrolled type 2 diabetes mellitus without complication, without long-term current use of insulin E11.65 Active 191933825 ALLERGIES No Information ENCOUNTERS Encounter Location Date Diagnosis [address] [id number] [place] [id number] Jul, BMI 40.0-44.9, adult Z68.41 ; Hyperlipemia E78.5 ; Hypothyroidism , unspecified E03.9 ; Uncontrolled type 2 diabetes mellitus without complication , without long-term current use of insulin E11.65 ; Statin intolerance Z78.9 ; Pain of left foot M79.672 and Pain in right foot M79.[address] [id number] [place] [id number] May, Type 2 diabetes mellitus with other specified complication E11.[address] [id number] [place] [id number] Apr, [facility] [address] [id number] [place] [id number] Apr, Type 2 diabetes mellitus with other specified complication E11.69 ; Type 2 diabetes mellitus with hyperglycemia E11.65 and assisted current use of insulin Z79.4 [facility] [address] [id number] [place] [id number] Mar, Hyperlipemia E78.5 ; Encounter for immunization Z23 and Uncontrolled type 2 diabetes mellitus without complication, without long-term current use of insulin E11.65 [facility] [address] [id number] [place] [id number] Feb, [facility] [address] [id number] [place] [id number] Jan, Type II diabetes mellitus E11.9 [facility] [address] [id number] [place] [id number] Jan, Type II diabetes mellitus E11.9 [facility] [address] [id number] [place] [id number] Dec, [facility] [address] [id number] [place] [id number] Dec, Type II diabetes mellitus E11.9 ; Obesity (BMI 30-39.9) E66.9 and Dietary counseling Z71.3 [facility] [address] [id number] [place] [id number] Dec, Dental examination Z01.20 [facility] [address] [id number] [place] [id number] Nov, Acute cystitis without hematuria N30.00 [facility] [address] [facility] [id number][place] [id number] September, Dental examination Z01.20 [facility] [address] [id number] [place] [id number] September, Type II diabetes mellitus E11.9 ; Hypothyroidism, unspecified E03.9 ; Hyperlipemia E78.5 ; Dietary counseling Z71.3 and Exercise counseling Z71.89 [facility] [address] [id number] [place] [id number] Jun, [facility] [address] [id number] [place] [id number] May, [facility] [address] [id number] [place] [id number] May, [facility] [address] [id number] [place] [id number] May, Type II diabetes mellitus E11.9 [facility] [address] [id number] [address] May, [facility] [address] [id number] [place] [id number] May, Postsurgical hypothyroidism E89.0 ; Type II diabetes mellitus E11.9 ; Hyperlipemia E78.5 and Acute non-recurrent maxillary sinusitis J01.00 [facility] [address] [id number] [place] [id number] Apr, [facility] [address] [id number] [place] [address] Mar, Acute nasopharyngitis J00 [facility] [address] [id number] [place] [id number] Jan, Type II diabetes mellitus E11.9 [facility] [address] [id number] [place] [id number] Jan, [facility] [address] [id number] [place] [id number] Jan, Dysuria R30.0 ; Right flank pain R10.9 and Urinary frequency R35.[address] [facility] [address] [id number] [place] [id number] Jan, Adjustment disorder with anxious mood F43.22 [facility] [address] [id number] [place] [id number] Jul, Acute non-recurrent pansinusitis J01.40 [facility] [address] [id number] Jun, [facility] [address] [place] [address] AV [id number] [place] [id number] Jun, Type II diabetes mellitus E11.9 ; Hyperlipemia E78.5 ; Hypothyroidism, unspecified E03.9 and Obesity E66.[address] [id number] [place] [id number] Feb, Anxiety F41.9 and Adverse reaction to SSRI antidepressant drug T43.225A [address] [id number] [place] [address] Jan, [address] [id number] [place] [id number] Jan, Irritability 799.22 ; Well woman exam with routine gynecological exam V72.31 ; Breast cancer screening V76.10 and History of hysterectomy for indication other than malignancy V88.[address] [id number] [place] [id number] Dec, Type II diabetes mellitus 250.00 ; Postsurgical hypothyroidism 244.0 ; Right flank pain 789.09 and Obesity 278.[address] [id number] [place], [place] [id number] September, [facility] [address] [place] [id number] September, [facility] [address] [place] [address] Aug, [facility] [id number] [place] [address] Aug, [facility] [address] [place] [id number] Jul, [facility] [id number] [place] [address] Jul, [facility] [place] [facility] [address] [id number] [place] [address] Jul, [facility] [place] [facility] [address] [id number] [place] Jul, [facility] [place] [facility] [address] [id number] [place] [address] Apr, [facility] [place] [facility] [address] [id number] [place] [address] Apr, [facility] [place] [facility] [address] [id number] [place] [address] Mar, [facility] [place] [facility] [address] [id number] [place] [address] Mar, [facility] [place] [facility] [address] [id number] [place] [address] Mar, [facility] [place] [facility] [address] [id number] [place] [address] Mar, [facility] [place] [facility] [address] [id number] [place] [address] Feb, [facility] [place] [facility] [address] [id number] [place] [address] Feb, [facility] [place] [facility] [address] [id number][place] [address] Feb, [facility] [place] [facility] [address] [id number][place] [address] Feb, [facility] [place] [facility] [address] [id number] [place] [address] 08 Jan, 2014 [facility] [place] [facility] [address] [id number] [place] [address] 08 Jan, 2014 [facility] [place] [facility] [address] [id number] [place] [address] 05 Jan, 2014 [facility] [place] [facility] [address] [id number] [place] [address] Jan, [facility] [place] [facility] [address] [id number] [place] [address] Jan, [facility] [place] [facility] [address] [id number] [place] [address] Dec, [facility] [place] [facility] [address] [id number] [place] [address] Dec, [facility] [place] [facility] [address] [id number] [place] [address] Dec, [facility] [place] [facility] [address] [id number] [place] [address] Dec, [facility] [place] [facility] [address] [id number] [place] [address] Oct, [facility] [place] [facility] [address] [id number] [place] [address] Oct, [facility] [address] [id number] [place] [address] Oct, [facility] [place] [facility] [address] [id number] [place] [address] Oct, [facility] [place] [facility] [address] [id number] [place] [address] September, [facility] [place] [facility] [address] [id number] [place] [address] September, [facility] [place] [facility] [address] [id number] [place] [address] September, [facility] [place] [facility] [address] [id number] [place] [address] September, [facility] [place] [facility] [address] [id number] [place] [address] September, [facility] [place] [facility] [address] [id number] [place] September, [facility] [address] [id number] [address] September, [facility] [address] [address] September, [facility] [address] [id number] [address] September, [facility] [address] [address] September, [facility] [address] [id number] [address] Aug, [facility] [address]65[address] [address] Aug, [facility] [address] [address] Aug, [facility] [address]65100[place] [address] Aug, [facility] [address] [id number] [address] Aug, IMMUNIZATIONS No Known Immunizations SOCIAL HISTORY Never Assessed REASON FOR VISIT samples PLAN OF CARE VITAL SIGNS MEDICATIONS Medication [...]
--- OUTSIDE RECORDS SUMMARY | 2018-08-28 11:50 | XMS REPORT ---
Author TOBY [facility] Address [facility] [place] [address] Care Team Providers Care Letter Of Credit Clerk Name Role Phone TOBY MILLS Unavailable PROBLEMS Type Condition ICD9-CM Code HYS88-HQ Code Onset Dates Condition Status SNOMED Code Problem Statin intolerance Z78.9 Active 69994641 Problem Hyperlipemia E78.5 Active 96597706 Problem Postsurgical hypothyroidism E89.0 Active 79093391 Problem Dental examination Z01.20 Active 394503035 Problem Obesity (BMI 30-39.9) E66.9 Active 817020531 Problem Hypothyroidism, unspecified E03.9 Active 36676436 Problem Anxiety F41.9 Active 63620200 Problem Adjustment disorder with anxious mood F43.22 Active 56205953 Problem Type II diabetes mellitus E11.9 Active 76670163 ALLERGIES Substance Reaction Event Type Date Status Zoloft suicidal thoughts Drug Allergy September, Active Penicillin G Benzathine rash Drug Allergy September, Active Paxil suicidal thoughts Drug Allergy September, Active SOCIAL HISTORY Never Assessed PLAN OF CARE Activity Details Follow Up 3 Months Reason:DM visit VITAL SIGNS Height 61 in 2016-09-17 Weight 193.0 lbs 2016-09-17 Temperature 97.8 degrees Fahrenheit 2016-09-17 Heart Rate 82 bpm 2016-09-17 Respiratory Rate 18 2016-09-17 BMI 36.46 kg/m2 2016-09-17 Blood pressure systolic 122 mmHg 2016-09-17 Blood pressure diastolic 84 mmHg 2016-09-17 MEDICATIONS Medication Instructions Dosage Frequency Start Date End Date Duration Status Multivitamin Orally Once a day 1 tab 24h Active Welchol 625 MG Orally 2 times a day TAKE 3 TABLETS TWICE DAILY WITH MEALS 12h Active OneTouch Delica Lancets Fine - CHECK BLOOD SUGAR ONCE DAILY. 90 Active AZO Cranberry Urinary Tract 250-60 MG Orally Once a day 2 cap 24h Active OneTouch Ultra Test - CHECK BLOOD SUGAR ONCE DAILY. 90 Active Synthroid 150 MCG Orally Once a day 1 tablet on an empty stomach in the morning 24h Active Glucometer 1 glucometer check blood sugar daily May, Active Aspirin 325 MG Orally Once a day 1 tablet 24h Active HydrOXYzine Pamoate 50 MG TAKE ONE CAPSULE BY MOUTH THREE TIMES DAILY 30 Active Tradjenta 5 mg Orally Once a day 1 tablet 24h May, Active Ibuprofen by oral route Dec, Active Lisinopril 2.5 MG Orally Once a day 1 tablet by Oral route 1 time per day 24h Active Glimepiride 2 MG Orally am and pm 1 tablet Active RESULTS Name Result Date Reference Range A1C (IN HOUSE) 2016-09-17 A1C IN HOUSE 7.7 4.3 - 5.6 % Previous A1c 9.2 Lot [id number] Exp date 06/23 PROCEDURES Procedure Date Ordered Result Body Site GLYCATED HEMOGLOBIN TEST September 17, 2016 IMMUNIZATIONS No Known Immunizations MEDICAL (GENERAL) HISTORY [...]
--- OUTSIDE RECORDS SUMMARY | 2018-08-28 11:51 | XMS REPORT | Continuity of Care Document ---
Author Organization Unknown Address Unknown Allergies There is no data. Medications There is no data. Problems Date Dx Coded Attending Type Code Diagnosis Diagnosed By 08/27/2013 ARCHANA ATWOOD DO 250.00 DIABETES MELLITUS TYPE 2 08/27/2013 SHIREEN ATWOOD DOA K 278.00 OBESITY 08/27/2013 SHIREEN ATWOOD DOA K 250.00 DIABETES MELLITUS TYPE 2 08/27/2013 SHIREEN ATWOOD DOA K 278.00 OBESITY 08/27/2013 ARLEY BRUMFIELD APRN N 250.00 DIABETES MELLITUS TYPE 2 08/27/2013 BRIAN BRUMFIELD APRNCY N 278.00 OBESITY 08/27/2013 MONICA DDS, JUAN B 250.00 DIABETES MELLITUS TYPE 2 08/27/2013 MONICA DDS, JUAN B 278.00 OBESITY 08/27/2013 ARCHANA ATWOOD DO K 250.00 DIABETES MELLITUS TYPE 2 08/27/2013 SHIREEN ATWOOD DOA K 278.00 OBESITY 08/27/2013 TOBY MILLS APRN 250.00 DIABETES MELLITUS TYPE 2 08/27/2013 TOBY MILLS APRN 278.00 OBESITY 12/06/2013 ARCHANA ATWOOD DO K 272.4 HYPERLIPIDEMIA 12/06/2013 ARLEY BRUMFIELD APRN N 272.4 HYPERLIPIDEMIA 12/06/2013 MONICA DDS, JUAN B 272.4 HYPERLIPIDEMIA 12/06/2013 SHIREEN ATWOOD DOA K 272.4 HYPERLIPIDEMIA 12/06/2013 TOBY MILLS APRN 272.4 HYPERLIPIDEMIA 01/05/2014 ARLEY BRUMFIELD APRN N 599.0 URINARY TRACT INFECTION 01/05/2014 BRIAN BRUMFIELD APRNCY N 788.1 DYSURIA 01/05/2014 BRIAN BRUMFIELD APRNCY N 788.41 URINARY FREQUENCY 01/05/2014 MONICA DDS, JUAN B 599.0 URINARY TRACT INFECTION 01/05/2014 MONICA DDS, JUAN B 788.1 DYSURIA 01/05/2014 MONICA DDS, JUAN B 788.41 URINARY FREQUENCY 01/05/2014 ANGELIC ARCHANA DIMAS K 599.0 URINARY TRACT INFECTION 01/05/2014 ANGELIC DIMASSHIREENA K 788.1 DYSURIA 01/05/2014 ANGELIC DIMASSHIREENA K 788.41 URINARY FREQUENCY 01/05/2014 TOBY MILLS APRN 599.0 URINARY TRACT INFECTION 01/05/2014 TOBY MILLS APRN 788.1 DYSURIA 01/05/2014 TOBY MILLS APRN 788.41 URINARY FREQUENCY 04/04/2014 ATWOOD ARCHANA DIMAS 244.0 POSTSURGICAL HYPOTHYROIDISM 04/04/2014 TOBY MILLS APRN 244.0 POSTSURGICAL HYPOTHYROIDISM Procedures Code Description [place] [address] ROUTINE VENIPUNCTURE 08/27/2013 54006 CMP 08/27/2013 59234 LIPID PANEL 08/27/2013 04114 CULTURE URINE 08/27/2013 THYANA THYROID ANALYZER 08/27/2013 82388 A1C (IN-HOUSE) 08/27/2013 28695 MICRO ALBUMIN-IN HOUSE 08/27/2013 15037 A1C (IN-HOUSE) 12/06/2013 15419 UA LONG DIP 01/05/2014 07630 THERAPUTIC INJ SQ/IM 01/05/2014 J0696 ROCEPHIN INJ 1 g 01/05/2014 99874 CULTURE URINE 01/07/2014 88317 A1C (IN-HOUSE) 04/04/2014 Results Test Result Range [facility] - 03/28/17 10:42 GLUCOSE 256 mg/dL 65-99 UREA NITROGEN (BUN) 11 mg/dL 7-25 CREATININE 0.82 mg/dL 0.50-1.10 eGFR NON-AFR. KENYAN 87 mL/min/1.73m2 > OR=60 eGFR 101 mL/min/1.73m2 > OR=60 BUN/CREATININE RATIO NOT APPLICABLE (calc) 6-22 SODIUM 136 mmol/L 135-146 POTASSIUM 4.1 mmol/L 3.5-5.3 CHLORIDE 102 mmol/L 98-110 CARBON DIOXIDE 24 mmol/L 20-31 CALCIUM 9.1 mg/dL 8.6-10.2 PROTEIN, TOTAL 7.1 g/dL 6.1-8.1 ALBUMIN 4.1 g/dL 3.6-5.1 GLOBULIN 3.0 g/dL (calc) 1.9-3.7 ALBUMIN/GLOBULIN RATIO 1.4 (calc) 1.0-2.5 BILIRUBIN, TOTAL 0.4 mg/dL 0.2-1.2 ALKALINE PHOSPHATASE 77 U/L 33-115 AST 18 U/L 10-30 ALT 17 U/L 6-29 CMP - 07/04/17 09:29 GLUCOSE 179 mg/dL 65-99 UREA NITROGEN (BUN) 13 mg/dL 7-25 CREATININE 0.68 mg/dL 0.50-1.10 eGFR NON-AFR. KENYAN 106 mL/min/1.73m2 > OR=60 eGFR 123 mL/min/1.73m2 > OR=60 BUN/CREATININE RATIO NOT APPLICABLE (calc) 6-22 SODIUM 139 mmol/L 135-146 POTASSIUM 4.7 mmol/L 3.5-5.3 CHLORIDE 105 mmol/L 98-110 CARBON DIOXIDE 23 mmol/L 20-31 CALCIUM 9.1 mg/dL 8.6-10.2 PROTEIN, TOTAL 6.9 g/dL 6.1-8.1 ALBUMIN 4.0 g/dL 3.6-5.1 GLOBULIN 2.9 g/dL (calc) 1.9-3.7 ALBUMIN/GLOBULIN RATIO 1.4 (calc) 1.0-2.5 BILIRUBIN, TOTAL 0.4 mg/dL 0.2-1.2 ALKALINE PHOSPHATASE 85 U/L 33-115 AST 12 U/L 10-30 ALT 11 U/L 6-29 CULTURE, URINE - 10/07/17 09:40 CULTURE, URINE, ROUTINE SEE NOTE NRG Encounters ACCT No. Visit Date/Time Discharge Status Pt. Type Provider Facility Loc./Unit Complaint [id number] 07/12/2014 08:03:00 07/12/2014 23:59:59 CLS Outpatient TOBY MILLS APRN [id number] 04/04/2014 15:35:00 04/04/2014 23:59:59 CLS Outpatient ARCHANA ATWOOD DO [id number] 03/15/2014 07:22:00 03/15/2014 23:59:59 CLS Outpatient JUAN ANDERSON DDS [id number] 01/05/2014 09:11:00 01/05/2014 23:59:59 CLS Outpatient TAURUS ARLEY FUNES APRN Sylvester [id number] 12/06/2013 15:36:00 12/06/2013 23:59:59 CLS Outpatient ARCHANA ATWOOD DO [id number] 08/27/2013 09:01:00 08/27/2013 23:59:59 [place] [id number] 08/28/2018 10:00:00 ACT Outpatient TOBY MILLS APRN [facility] [id number] 10/07/2017 08:40:00 Document Registration [id number] 07/04/2017 09:00:00 Document Registration [id number] 03/28/2017 10:00:00 Document Registration
[2018-08-28] MEDS ORDERED: NITROGLYCERIN 0.4 MG SL TABS BTL 25'S SL PRN (12:00)
[2018-08-28] MEDS ORDERED: ONDANSETRON 4 MG/2 ML (SDV) Z0FRAN IVP ONE ×2 (12:00→13:15)
[2018-08-28] MEDS ORDERED: ASPIRIN 81 MG CHEW (CHILDREN'S ASA) PO ONE (12:00)
[2018-08-28 12:02] LABS: BASOPHILS % (AUTO) 1 % (0-10); EOSINOPHILS # (AUTO) 0.1 10^3/uL (0.0-0.3); EOSINOPHILS % (AUTO) 1 % (0-10); HEMATOCRIT 41 % (35-52); HEMOGLOBIN 13.8 G/DL (11.5-16.0); LYMPHOCYTES # (AUTO) 1.7 X 10^3 (1.0-4.0); LYMPHOCYTES % (AUTO) 26 % (12-44); MEAN CORPUSCULAR HEMOGLOBIN 29 PG (25-34); MEAN CORPUSCULAR HGB CONC 34 G/DL (32-36); MEAN CORPUSCULAR VOLUME 86 FL (80-99); MEAN PLATELET VOLUME 10.4 FL (7.4-10.4); MONOCYTES # (AUTO) 0.6 X 10^3 (0.0-1.0); MONOCYTES % (AUTO) 9 % (0-12); NEUTROPHILS % (AUTO) 63 % (42-75); PLATELET COUNT 267 10^3/uL (130-400); RED CELL DISTRIBUTION WIDTH 12.5 % (10.0-14.5); WHITE BLOOD COUNT 6.3 10^3/uL (4.3-11.0)
[2018-08-28 12:13] LABS: PROTHROMBIN TIME PATIENT 13.4 SEC (12.2-14.7)
[2018-08-28 12:23] LABS: ALANINE AMINOTRANSFERASE 15 U/L (0-55); ALBUMIN 4.5 GM/DL (3.2-4.5); ALKALINE PHOSPHATASE 71 U/L (40-136); BILIRUBIN,TOTAL 0.9 MG/DL (0.1-1.0); BUN/CREATININE RATIO 11; CARBON DIOXIDE 21 MMOL/L (21-32); CHLORIDE 107 MMOL/L (98-107); CREATININE SERUM 0.83 MG/DL (0.60-1.30); GFR ESTIMATED > 60; GLUCOSE 166 MG/DL (70-105); LIPASE 27 U/L (8-78); MAGNESIUM 2.1 MG/DL (1.8-2.4); SODIUM 139 MMOL/L (135-145); TOTAL PROTEIN 7.9 GM/DL (6.4-8.2)
[2018-08-28] MEDS ORDERED: IOHEXOL 350 MG/ML 150 ML (OMNIPAQUE 350) VIAL IV ONE (12:30)
[2018-08-28] MEDS ORDERED: LIDOCAINE 2% VISCOUS 15 ML UDC PO ONE (12:30)
[2018-08-28] MEDS ORDERED: HOLD METFORMIN - RECEIVED CONTRAST 20 ML VIAL IV SCH (12:30)
[2018-08-28] MEDS ORDERED: ANTACID SUSP 30 ML UDC (MYLANTA) PO ONE (12:30)
[2018-08-28 12:32] LABS: BILIRUBIN,URINE NEGATIVE (NEGATIVE); CLARITY,URINE SLIGHTLY CLOUDY; COLOR,URINE YELLOW; GLUCOSE, URINE (UA) NEGATIVE (NEGATIVE); KETONES,URINE NEGATIVE (NEGATIVE); LEUKOCYTE ESTERASE ,URINE NEGATIVE (NEGATIVE); NITRITE,URINE NEGATIVE (NEGATIVE); PH,URINE 8 (5-9); PROTEIN,URINE NEGATIVE (NEGATIVE); UROBILINOGEN,URINE NORMAL (NORMAL)
--- NOTE | 2018-08-28 12:37 | Diagnostic Imaging Report ---
INDICATION: Nocturnal chest pain. Portable chest 12:29 p.m. FINDINGS: Heart size and pulmonary vascularity are normal. Lungs are clear. There are no effusions or pneumothoraces. IMPRESSION: Negative chest. Dictated by: Dictated on workstation # [id number]
[2018-08-28 12:39] LABS: BACTERIA,URINE FEW /HPF; SQUAMOUS EPITHELIAL CELL,UR 0-2 /HPF; WBC,URINE 0-2 /HPF
[2018-08-28 12:47] LABS: AMPHETAMINE SCREEN, URINE NEGATIVE (NEGATIVE); BARBITURATE SCREEN URINE NEGATIVE (NEGATIVE); BENZODIAZEPINES SCREEN URINE NEGATIVE (NEGATIVE); CANNABINOID SCREEN, URINE NEGATIVE (NEGATIVE); COCAINE SCREEN URINE NEGATIVE (NEGATIVE); METHADONE STAT NEGATIVE (NEGATIVE); METHAMPHETAMINE SCREEN URINE S NEGATIVE (NEGATIVE); OPIATE SCREEN URINE NEGATIVE (NEGATIVE); OXYCODONE STAT NEGATIVE (NEGATIVE); PROPOXYPHENE STAT NEGATIVE (NEGATIVE); TRICYCLIC ANTIDEPRESSANTS SCRE NEGATIVE (NEGATIVE)
--- NOTE | 2018-08-28 13:04 | Diagnostic Imaging Report ---
PROCEDURE: CT angiography of the chest with contrast. TECHNIQUE: Multiple contiguous axial images were obtained through the chest after uneventful bolus administration of intravenous contrast. 2D reconstructed CTA MIP acquisitions were also performed. Auto Exposure Controls were utilized during the CT exam to meet ALARA standards for radiation dose reduction. INDICATION: Chest pressure, nausea, abnormal EKG. FINDINGS: There are no intraluminal pulmonary arterial filling defects. The thoracic aorta is patent and nonaneurysmal. No mural hemorrhage, aneurysm, dissection, or vessel rupture. The aorta is patent. There is no pleural or pericardial effusion. No appreciable calcifications along the courses of the identifiable coronary arterial segments. There is no mass or adenopathy. There is no evidence for edema or infiltrate. No acute chest wall pathology. The visualized upper abdomen is normal. IMPRESSION: Negative for PE, aortic pathology, or other abnormalities. Dictated by: Dictated on workstation # [id number]
[2018-08-28] MEDS ORDERED: KETOROLAC 30 MG/ML VIAL IVP ONE (13:15)
[2018-08-28] MEDS ORDERED: morphine INJ 10 MG/ML 1ML (SYR OR VIAL) IVP STA (13:33)
[2018-08-28] MEDS ORDERED: PANTOPRAZOLE 40 MG (PROTONIX) VIAL IV ONE (13:45)
--- OUTSIDE RECORDS SUMMARY | 2018-08-28 13:57 | XMS REPORT | Continuity of Care Document ---
[...] Procedures Code Description [place] [address] ROUTINE VENIPUNCTURE 08/27/2013 99360 CMP 08/27/2013 16829 LIPID PANEL 08/27/2013 85388 CULTURE URINE 08/27/2013 THYANA THYROID ANALYZER 08/27/2013 80440 A1C (IN-HOUSE) 08/27/2013 84495 MICRO ALBUMIN-IN HOUSE 08/27/2013 77290 A1C (IN-HOUSE) 12/06/2013 81996 UA LONG DIP 01/05/2014 23571 THERAPUTIC INJ SQ/IM 01/05/2014 J0696 ROCEPHIN INJ 1 g 01/05/2014 80588 CULTURE URINE 01/07/2014 41406 A1C (IN-HOUSE) 04/04/2014 Results Test Result Range [facility] - 03/28/17 10:42 GLUCOSE 256 mg/dL 65-99 UREA NITROGEN (BUN) 11 mg/dL 7-25 CREATININE 0.82 mg/dL 0.50-1.10 eGFR NON-AFR. BRUNEIAN 87 mL/min/1.73m2 > OR=60 eGFR 101 mL/min/1.73m2 [...] 7-25 CREATININE 0.68 mg/dL 0.50-1.10 eGFR NON-AFR. BRUNEIAN 106 mL/min/1.73m2 > OR=60 eGFR 123 mL/min/1.73m2 [...] Status Pt. Type Provider Facility Loc./Unit Complaint [id number] 07/12/2014 08:03:00 07/12/2014 23:59:59 CLS Outpatient TOBY MILLS APRN [id number] 04/04/2014 15:35:00 04/04/2014 23:59:59 CLS Outpatient ARCHANA ATWOOD DO [id number] 03/15/2014 07:22:00 03/15/2014 23:59:59 CLS Outpatient JUAN ANDERSON DDS [id number] 01/05/2014 09:11:00 01/05/2014 23:59:59 CLS Outpatient TAURUS ARLEY FUNES APRN [place] [id number] 12/06/2013 15:36:00 12/06/2013 23:59:59 CLS Outpatient ARCHANA ATWOOD DO [id number] 08/27/2013 09:01:00 08/27/2013 23:59:59 [place] [id number] 08/28/2018 10:00:00 ACT Outpatient TOBY MILLS APRN [facility] [id number] 10/07/2017 08:40:00 Document Registration [id number] 07/04/2017 09:00:00 Document Registration [id number] 03/28/2017 10:00:00 Document Registration
[2018-08-28] MEDS ORDERED: LORazepam INJ 2 MG/ML (ATIVAN) VIAL IVP PRN (14:15)
--- NOTE | 2018-08-28 14:25 | NUR ---
TEJAL ROBERTS admitted to room CU7-1, with an admitting diagnosis of CP , on 08/28/18 from ER via WC, accompanied by STAFF.TEJAL ROBERTS introduced to surroundings, call light, bed controls, phone, TV, temperature control, lights, meal times, smoking policy, visitor policy, side rail policy, bathrooms and showers. Patient Rights given to patient in the handbook. TEJAL ROBERTS verbalizes understanding that [facility] is not responsible for the loss or damage to any personal effects or valuables that are kept in the patients posession during their hospitalization. The following Patient Care Plans were discussed with the PT: Discharge Planning, PAIN,ACTIVITY INTOLERANCE, and ANXIETY. TEJAL ROBERTS verbalizes understanding of Interdisciplinary Patient Education. Patient and family were informed about the Rapid Response Team and its purpose.
--- NOTE | 2018-08-28 14:36 | Cardiology History & Physical ---
HPI-Cardiology Cardiology H&P Date of Admission 08-28-18 Primary Care Physician [facility] Attending Physician Jn Hinson MD [facility] Consulting Physician KOFI Ms. Watkins is a 43 year old female who was being seen at [facility] this morning for her diabetic check. She reports she had not eaten breakfast this morning. She reports she became nauseated this morning which would not resolve. She reports she has been having mid-sternal chest pressure which occ radiates down her abdomen almost every evening for approx the last 6 months. She states she does not have discomfort with ambulation or activity. She reports the discomfort is only when sitting and feels better when she leans forward. She reports she will typically have a hard seltzer or drink to relax and then she can fall asleep and when she awakens in the morning the discomfort is gone, but comes back nearly every evening. Today, she began to have the discomfort while riding in the car to the clinic. She reports it is a constant pressure. Occ nausea with the discomfort. No c/o dyspnea or palpitations. She reports occ blood in her stool, but reports she has hemorrhoids. She denies any cough, fever or chills. She reports after receiving the GI cocktail in the ED she felt she was having difficulty swallowing at that time and was coughing, but does not feel she has been coughing at home. She reports bilat LE swelling which is least in the morning and worse at the end of the day. She reports she did receive IV Morphine in the ED which made her pain feel worse and caused it to radiate to her abdomen. She is currently report her pain an 8/ 10 on a 1-10 pain scale. Her spouse is at the bedside. Review of Systems-Cardiology Review of Systems Constitutional: No chills, No fever, No malaise Eyes: No blindness, No vision change Ears/Nose/Throat: No epistaxis, No recent hearing loss Respiratory: As described under HPI Cardiovascular: As described under HPI Gastrointestinal: As described under HPI Genitourinary: No dysuria, No hematuria Musculoskeletal: muscle pain Skin: No rash, No ulcerations Psychiatric/Neurological: anxiety, depression; No seizure, No focal weakness, No syncope Hematologic: No bleeding abnormalities BAY-Oyefuw-Wcdqcx Hx Patient Social History Alcohol Use: Occasionally Uses Recreational Drug Use: No Smoking Status: Never a Smoker 2nd Hand Smoke Exposure: Yes Recent Foreign Travel: No Recent Infectious Disease Expo: No Hospitalization with Isolation: Denies Past Medical History PMH As described under Assessment. Family Medical History Family Medical History: She reports her father had CHF. No reported family h/o CAD or SCD. Allergies and Home Medications Allergies Coded Allergies: Penicillins (Verified Allergy, Unknown, 08/28/18) Aesbqyu-Uur-Jpf Reductase Inhibitor (Verified Allergy, Unknown, 08/28/18) Uncoded Allergies: "antidepressant" (Allergy, Unknown, 08/28/18) SUICIDAL THOUGHTS PER PT Home Medications Lisinopril 2.5 Mg Tablet, 2.5 MG PO DAILY, (Reported) Patient Home Medication List Home Medication List Reviewed: Yes Physical Exam-Cardiology Physical Exam Vital Signs/I&O 08/28/18 08/28/18 08/28/18 08/28/18 12:26 14:20 14:25 15:00 Temp 97.8 97.8 97.9 Pulse 79 79 Resp 18 18 B/P (MAP) 131/79 (96) 131/79 (96) Pulse Ox 100 100 100 O2 Delivery Room Air 08/28/18 08/28/18 08/28/18 08/28/18 15:00 15:20 16:00 16:09 Pulse 65 74 90 Resp 12 48 B/P (MAP) 118/69 (85) 93/69 (77) Pulse Ox 100 99 O2 Delivery Room Air Room Air Room Air Capillary Refill : Less Than 3 Seconds Constitutional: AAO x 3, well-developed, well-nourished HEENT: PERRL, hearing is well preserved, oral hygience is good Neck: No carotid bruit; carotid pulses are 2 + bilaterally Respiratory: No accessory muscle use, No respiratory distress; chest expansion is symmetric, chest is bilaterally symmetric, lungs clear to auscultation Cardiovascular: regular rate-rhythm; No JVD; S1 and S2 Gastrointestinal: No tender; soft, round, audible bowel sounds Rectal: deferred Extremities: no lower extremity edema bilateral Neurologic/Psychiatric: grossly intact, power is 5/5 both on sides Skin: No rash, No ulcerations Data Review Labs Laboratory Tests 08/28/18 11:55: White Blood Count 6.3, Red Blood Count 4.72, Hemoglobin 13.8, Hematocrit 41, Mean Corpuscular Volume 86, Mean Corpuscular Hemoglobin 29, Mean Corpuscular Hemoglobin Concent 34, Red Cell Distribution Width 12.5, Platelet Count 267, Mean Platelet Volume 10.4, Neutrophils (%) (Auto) 63, Lymphocytes (%) (Auto) 26 , Monocytes (%) (Auto) 9, Eosinophils (%) (Auto) 1, Basophils (%) (Auto) 1, Neutrophils # (Auto) 4.0, Lymphocytes # (Auto) 1.7, Monocytes # (Auto) 0.6, Eosinophils # (Auto) 0.1, Basophils # (Auto) 0.0, Erythrocyte Sedimentation Rate 14, Prothrombin Time 13.4, INR Comment 1.0, Activated Partial Thromboplast Time 29, D-Dimer 0.74H, Urine Color YELLOW, Urine Clarity SLIGHTLY CLOUDY, Urine pH 8, Urine Specific [place] 1.010L, Urine Protein NEGATIVE, Urine Glucose (UA) NEGATIVE, Urine Ketones NEGATIVE, Urine Nitrite NEGATIVE, Urine Bilirubin NEGATIVE, Urine Urobilinogen NORMAL, Urine Leukocyte Esterase NEGATIVE , Urine RBC (Auto) NEGATIVE, Urine RBC NONE, Urine WBC 0-2, Urine Squamous Epithelial Cells 0-2, Urine Crystals NONE, Urine Bacteria FEWH, Urine Casts NONE , Urine Mucus NEGATIVE, Urine Culture Indicated NO, Sodium Level 139, Potassium Level 4.0, Chloride Level 107, Carbon Dioxide Level 21, Anion Gap 11, Blood Urea Nitrogen 9, Creatinine 0.83, Estimat Glomerular Filtration Rate > 60, BUN/ Creatinine Ratio 11, Glucose Level 166H, Calcium Level 10.0, Corrected Calcium 9.6, Magnesium Level 2.1, Total Bilirubin 0.9, Aspartate Amino Transf (AST/SGOT ) 16, Alanine Aminotransferase (ALT/SGPT) 15, Alkaline Phosphatase 71, Myoglobin 28.5, Troponin I < 0.028, C-Reactive Protein High Sensitivity 0.11, B- Type Natriuretic Peptide 19.6, Total Protein 7.9, Albumin 4.5, Lipase 27, Urine Opiates Screen NEGATIVE, Urine Oxycodone Screen NEGATIVE, Urine Methadone Screen NEGATIVE, Urine Propoxyphene Screen NEGATIVE, Urine Barbiturates Screen NEGATIVE, Ur Tricyclic Antidepressants Screen NEGATIVE, Urine Phencyclidine Screen NEGATIVE, Urine Amphetamines Screen NEGATIVE, Urine Methamphetamines Screen NEGATIVE, Urine Benzodiazepines Screen NEGATIVE, Urine Cocaine Screen NEGATIVE, Urine Cannabinoids Screen NEGATIVE, Serum Alcohol < 10 08/28/18 15:09: Glucometer 140H Radiology NAME: TEJAL WATKINS [facility] REC#: [id number] PT STATUS: REG ER : 1975 PHYSICIAN: XENA FULTON APRN ADMIT DATE: 08/28/18/ER Signed Date of Exam: 08/28/18 CT ANGIO CHEST W PROCEDURE: CT angiography of the chest with contrast. TECHNIQUE: Multiple contiguous axial images were obtained through the chest after uneventful bolus administration of intravenous contrast. 2D reconstructed CTA MIP acquisitions were also performed. Auto Exposure Controls were utilized during the CT exam to meet ALARA standards for radiation dose reduction. INDICATION: Chest pressure, nausea, abnormal EKG. FINDINGS: There are no intraluminal pulmonary arterial filling defects. The thoracic aorta is patent and nonaneurysmal. No mural hemorrhage, aneurysm, dissection, or vessel rupture. The aorta is patent. There is no pleural or pericardial effusion. No appreciable calcifications along the courses of the identifiable coronary arterial segments. There is no mass or adenopathy. There is no evidence for edema or infiltrate. No acute chest wall pathology. The visualized upper abdomen is normal. IMPRESSION: Negative for PE, aortic pathology, or other abnormalities. Dictated by: Dictated on workstation # [id number] Dict: 08/28/18 1256 Trans: 08/28/18 1302 Interpreted by: NICOLE KLEIN Electronically signed by: NICOLE KLEIN 08/28/18 1302 NAME: TEJAL WATKINS [facility] REC#: [id number] PT STATUS: REG ER : 1975 PHYSICIAN: XENA FULTON APRN ADMIT DATE: 08/28/18/ER Signed Date of Exam: 08/28/18 CHEST 1 VIEW, AP/PA ONLY INDICATION: Nocturnal chest pain. Portable chest 12:29 p.m. FINDINGS: Heart size and pulmonary vascularity are normal. Lungs are clear. There are no effusions or pneumothoraces. IMPRESSION: Negative chest. Dictated by: Dictated on workstation # [id number] Dict: 08/28/18 1234 Trans: 08/28/18 1252 Interpreted by: RAMAN PATTERSON MD Electronically signed by: RAMAN PATTERSON MD 08/28/18 1252 ECG Impression ECG Initial ECG Rhythm: Normal Sinus A/P-Cardiology Assessment/Admission Diagnosis Chest pain of undetermined etiology - no evidence of PE, aortic dissection (on CT of 08-28-18) or ACS Possible bronchitis DM 2 Anxiety/Depression Nausea of undetermined etiology H/O cholecystectomy H/O renal stones HLD - reported intolerance to statin H/O thyroidectomy d/t thyroid cancer - thyroid replacement managed by her PCP Admission Status: Observation Discussion and Recomendations Chest pain of undetermined etiology - no evidence of ACS, PE or aortic dissection Possible bronchitis - consult medical services Continue aspirin Continue home diabetic regimen Monitor lab closely Continue tele Admit to [facility] Further recs will be based on her hospital course Clinical Quality Measures AMI/AHF: ASA po Prior to arrival: No Physician Assessment Physician Assessment I interviewed and examined the patient' Please refer to my separate note The patient currently is reporting considerable amelioration of pain No shortness of breath or palp or syncope Lungs clear Cor reg Ext no c/c/e Echo today: WNL, no evidence of pericarditis A&P * As documented in our note above and as noted below * Serial card enz and ECG * If evidence of ACS, consider cath * If no evidence of ACS, probable d/c with outpt f/u * I had a detailed discussion with her and her and discussed our plan and answered questions JUMANA JIMÉNEZ Aug 28, 2018 14:36 JN HINSON MD FACP FAC CCDS Aug 28, 2018 17:04
[2018-08-28] MEDS ORDERED: ONDANSETRON 4 MG/2 ML (SDV) Z0FRAN IV PRN (14:45)
[2018-08-28] MEDS ORDERED: morphine INJ 4 MG/ML 1 ML (VIAL/SYRINGE) IV PRN (14:45)
[2018-08-28] MEDS ORDERED: AZITHROMYCIN 250 MG TAB (ZITHROMAX) PO SCH (15:00)
[2018-08-28] MEDS ORDERED: AZITHROMYCIN 250 MG TAB (ZITHROMAX) PO NR (15:00)
[2018-08-28] MEDS ORDERED: AZITHROMYCIN 250 MG/NS 250 ML IVPB IV SCH ×2 (15:00)
[2018-08-28] MEDS ORDERED: AZITHROMYCIN 500 MG/NS 250 ML IVPB IV NR ×2 (15:00)
[2018-08-28] MEDS: NS IV 1000 ML 1,000 ML IV SCH (15:16)
--- NOTE | 2018-08-28 15:35 | NUR ---
DR CHOWDHURY INFORMED OF [facility] CONSULT.
[2018-08-28] MEDS ORDERED: LISI2.5T PO (16:37)
--- NOTE | 2018-08-28 16:57 | Cardiology History & Physical ---
HPI-Cardiology Cardiology H&P Date of Admission 08/28/18 Primary Care Physician [facility] Attending Physician Jn Hinson MD, MA [facility] Consulting Physician KOFI Ms. Watkins is a 43 year old female who was being seen at [facility] this morning for her diabetic check. She reports she had not eaten breakfast this morning. She reports she became nauseated this morning which would not resolve. She reports she has been having mid-sternal chest pressure which occ radiates down her abdomen almost every evening for approx the last 6 months. She states she does not have discomfort with ambulation or activity. She reports the discomfort is only when sitting and feels better when she leans forward. She reports she will typically have a hard seltzer or drink to relax and then she can fall asleep and when she awakens in the morning the discomfort is gone, but comes back nearly every evening. Today, she began to have the discomfort while riding in the car to the clinic. She reports it is a constant pressure. Occ nausea with the discomfort. No c/o dyspnea or palpitations. She reports occ blood in her stool, but reports she has hemorrhoids. She denies any cough, fever or chills. She reports after receiving the GI cocktail in the ED she felt she was having difficulty swallowing at that time and was coughing, but does not feel she has been coughing at home. She reports bilat LE swelling which is least in the morning and worse at the end of the day. She reports she did receive IV Morphine in the ED which made her pain feel worse and caused it to radiate to her abdomen. She is currently report her pain an 8/ 10 on a 1-10 pain scale. Her spouse is at the bedside. Review of Systems-Cardiology Review of Systems Constitutional: No chills, No fever, No malaise Eyes: No blindness, No vision change Ears/Nose/Throat: No epistaxis, No recent hearing loss Respiratory: As described under HPI Cardiovascular: As described under HPI Gastrointestinal: As described under HPI Genitourinary: No dysuria, No hematuria Musculoskeletal: muscle pain Skin: No rash, No ulcerations Psychiatric/Neurological: anxiety, depression; No seizure, No focal weakness, No syncope Hematologic: No bleeding abnormalities OIQ-Sotysd-Ivkhkw Hx Patient Social History Alcohol Use: Occasionally Uses Recreational Drug Use: No Smoking Status: Never a Smoker 2nd Hand Smoke Exposure: Yes Recent Foreign Travel: No Recent Infectious Disease Expo: No Hospitalization with Isolation: Denies Immunizations Up To Date Date of Pneumonia Vaccine: Jan 03, 2018 Past Medical History PMH As described under Assessment. Family Medical History Family Medical History: She reports her father had CHF. No reported family h/o CAD or SCD. Family History: Drug use G8 SISTER FH: congestive heart failure 19 FATHER Hypertension 19 FATHER 19 MOTHER Neoplasm 19 MOTHER (KIDNEY CA) Respiratory disorder 19 MOTHER (COPD) Allergies and Home Medications Allergies Coded Allergies: Penicillins (Verified Allergy, Unknown, 08/28/18) Rzumfbo-Hjf-Ldn Reductase Inhibitor (Verified Allergy, Unknown, 08/28/18) Uncoded Allergies: "antidepressant" (Allergy, Unknown, 08/28/18) SUICIDAL THOUGHTS PER PT Home Medications Lisinopril 2.5 Mg Tablet, 2.5 MG PO DAILY, (Reported) Patient Home Medication List Home Medication List Reviewed: Yes Physical Exam-Cardiology Physical Exam Vital Signs/I&O 08/28/18 08/28/18 08/28/18 08/28/18 12:26 14:20 14:25 15:00 Temp 97.8 97.8 97.9 Pulse 79 79 Resp 18 18 B/P (MAP) 131/79 (96) 131/79 (96) Pulse Ox 100 100 100 O2 Delivery Room Air 08/28/18 08/28/18 08/28/18 08/28/18 15:00 15:20 16:00 16:09 Pulse 65 74 90 Resp 12 48 B/P (MAP) 118/69 (85) 93/69 (77) Pulse Ox 100 99 O2 Delivery Room Air Room Air Room Air Capillary Refill : Less Than 3 Seconds Constitutional: AAO x 3, well-developed, well-nourished HEENT: PERRL, hearing is well preserved, oral hygience is good Neck: No carotid bruit; carotid pulses are 2 + bilaterally Respiratory: No accessory muscle use, No respiratory distress; chest expansion is symmetric, chest is bilaterally symmetric, lungs clear to auscultation Cardiovascular: regular rate-rhythm; No JVD; S1 and S2 Gastrointestinal: No tender; soft, round, audible bowel sounds Rectal: deferred Extremities: no lower extremity edema bilateral Neurologic/Psychiatric: grossly intact, power is 5/5 both on sides Skin: No rash, No ulcerations Data Review Labs Laboratory Tests 08/28/18 11:55: White Blood Count 6.3, Red Blood Count 4.72, Hemoglobin 13.8, Hematocrit 41, Mean Corpuscular Volume 86, Mean Corpuscular Hemoglobin 29, Mean Corpuscular Hemoglobin Concent 34, Red Cell Distribution Width 12.5, Platelet Count 267, Mean Platelet Volume 10.4, Neutrophils (%) (Auto) 63, Lymphocytes (%) (Auto) 26 , Monocytes (%) (Auto) 9, Eosinophils (%) (Auto) 1, Basophils (%) (Auto) 1, Neutrophils # (Auto) 4.0, Lymphocytes # (Auto) 1.7, Monocytes # (Auto) 0.6, Eosinophils # (Auto) 0.1, Basophils # (Auto) 0.0, Erythrocyte Sedimentation Rate 14, Prothrombin Time 13.4, INR Comment 1.0, Activated Partial Thromboplast Time 29, D-Dimer 0.74H, Urine Color YELLOW, Urine Clarity SLIGHTLY CLOUDY, Urine pH 8, Urine Specific [place] 1.010L, Urine Protein NEGATIVE, Urine Glucose (UA) NEGATIVE, Urine Ketones NEGATIVE, Urine Nitrite NEGATIVE, Urine Bilirubin NEGATIVE, Urine Urobilinogen NORMAL, Urine Leukocyte Esterase NEGATIVE , Urine RBC (Auto) NEGATIVE, Urine RBC NONE, Urine WBC 0-2, Urine Squamous Epithelial Cells 0-2, Urine Crystals NONE, Urine Bacteria FEWH, Urine Casts NONE , Urine Mucus NEGATIVE, Urine Culture Indicated NO, Sodium Level 139, Potassium Level 4.0, Chloride Level 107, Carbon Dioxide Level 21, Anion Gap 11, Blood Urea Nitrogen 9, Creatinine 0.83, Estimat Glomerular Filtration Rate > 60, BUN/ Creatinine Ratio 11, Glucose Level 166H, Calcium Level 10.0, Corrected Calcium 9.6, Magnesium Level 2.1, Total Bilirubin 0.9, Aspartate Amino Transf (AST/SGOT ) 16, Alanine Aminotransferase (ALT/SGPT) 15, Alkaline Phosphatase 71, Myoglobin 28.5, Troponin I < 0.028, C-Reactive Protein High Sensitivity 0.11, B- Type Natriuretic Peptide 19.6, Total Protein 7.9, Albumin 4.5, Lipase 27, Urine Opiates Screen NEGATIVE, Urine Oxycodone Screen NEGATIVE, Urine Methadone Screen NEGATIVE, Urine Propoxyphene Screen NEGATIVE, Urine Barbiturates Screen NEGATIVE, Ur Tricyclic Antidepressants Screen NEGATIVE, Urine Phencyclidine Screen NEGATIVE, Urine Amphetamines Screen NEGATIVE, Urine Methamphetamines Screen NEGATIVE, Urine Benzodiazepines Screen NEGATIVE, Urine Cocaine Screen NEGATIVE, Urine Cannabinoids Screen NEGATIVE, Serum Alcohol < 10 08/28/18 15:09: Glucometer 140H A/P-Cardiology Assessment/Admission Diagnosis Chest pain of undetermined etiology - no evidence of PE, aortic dissection (on CT of 08-28-18) or ACS Possible bronchitis DM 2 Anxiety/Depression Nausea of undetermined etiology H/O cholecystectomy H/O renal stones HLD - reported intolerance to statin H/O thyroidectomy d/t thyroid cancer - thyroid replacement managed by her PCP Admission Status: Observation Discussion and Recomendations Chest pain of undetermined etiology - no evidence of ACS, PE or aortic dissection Possible bronchitis - consult medical services Continue aspirin Continue home diabetic regimen Monitor lab closely Continue tele Admit to [facility] Further recs will be based on her hospital course Clinical Quality Measures AMI/AHF: ASA po Prior to arrival: No DVT/VTE Risk/Contraindication: Risk Factor Score Per Nursin RFS Level Per Nursing on Admit: 4+=Very High JN HINSON MD FACP FACC CCDS Aug 28, 2018 16:57
[2018-08-28] MEDS: ANTACID SUSP 30 ML UDC (MYLANTA) PO SCH ×2 (17:08→20:38)
[2018-08-28] MEDS ORDERED: INSU100I14 SQ (17:41)
[2018-08-28] MEDS ORDERED: LEVO150T PO (17:41)
[2018-08-28] MEDS ORDERED: INSU100I29 SQ (17:41)
[2018-08-28] MEDS ORDERED: FLUT9.9S NS (17:41)
[2018-08-28] MEDS ORDERED: LINA5TAB PO (17:41)
[2018-08-28] MEDS ORDERED: HYDR50CA3 PO (17:41)
[2018-08-28] MEDS: inSUlin ASPART (NovoLOG) 1 UNIT/0.01 ML (CHARGE PER UNIT) SC SCH (18:36)
[2018-08-28] MEDS: hydrOXYzine (VISTARIL) 25 MG capsule/tablet PO PRN (20:38)
[2018-08-29] VITALS (10 sets, daily range): BP systolic 88–100; BP diastolic 48–65
[2018-08-29] MEDS: NS IV 1000 ML 1,000 ML IV SCH ×2 (02:20→11:34)
[2018-08-29 03:47] LABS: HEMOGLOBIN 11.9 G/DL (11.5-16.0); MEAN PLATELET VOLUME 10.6 FL (7.4-10.4); RED CELL DISTRIBUTION WIDTH 12.7 % (10.0-14.5)
[2018-08-29 04:20] LABS: ALANINE AMINOTRANSFERASE 79 U/L (0-55); ALBUMIN 3.6 GM/DL (3.2-4.5); ALKALINE PHOSPHATASE 73 U/L (40-136); BILIRUBIN,TOTAL 0.6 MG/DL (0.1-1.0); BUN/CREATININE RATIO 16; CALCIUM 8.7 MG/DL (8.5-10.1); CARBON DIOXIDE 20 MMOL/L (21-32); CHLORIDE 108 MMOL/L (98-107); CHOLESTEROL 168 MG/DL (< 200); CREATININE SERUM 0.77 MG/DL (0.60-1.30); GFR ESTIMATED > 60; GLUCOSE 89 MG/DL (70-105); HDL CHOLESTEROL 65 MG/DL (40-60); MAGNESIUM 2.2 MG/DL (1.8-2.4); POTASSIUM 3.8 MMOL/L (3.6-5.0); SODIUM 138 MMOL/L (135-145); TOTAL PROTEIN 6.1 GM/DL (6.4-8.2); TRIGLYCERIDES 43 MG/DL (<150); VLDL CHOLESTEROL 9 MG/DL (5-40)
[2018-08-29] MEDS: inSUlin ASPART (NovoLOG) 1 UNIT/0.01 ML (CHARGE PER UNIT) SC SCH ×2 (05:05→11:33)
[2018-08-29] MEDS ORDERED: LEVOTHYROXINE 150 MCG (LEVOTHROID) TAB PO SCH (06:30)
[2018-08-29] MEDS: ANTACID SUSP 30 ML UDC (MYLANTA) PO SCH (07:59)
--- NOTE | 2018-08-29 08:34 | Consultation-Hospitalist ---
HPI History of Present Illness: HPI/Chief Complaint CC: Chest pain HPI: This is a 43yoWF clinic patient of [facility] who presented to the ER with vague complaints of chest pain and was found to gave risk factors for ACS so she was admitted to Dr Hinson and monitored closely with negative troponins noted and no further chest pain. She reports that she thinks it may be related to her allergies since she uses Flonase daily and she has noted an increase in her congestion in her sinuses this morning. Checked meds and labs and reviewed PMH. Source: patient, family, RN/MD Exam Limitations: no limitations Date Seen 08/29/18 Attending Physician Jn Hinson MD Facp Facc Ccds PCP [facility] Referring Physician Date of Admission Aug 28, 2018 at 13:49 Home Medications & Allergies Home Medications Reviewed patient Home Medication Reconciliation performed by pharmacy medication reconciliations police service technician and/or nursing. Patients Allergies have been reviewed. Allergies Allergies Coded Allergies Penicillins (Verified Allergy, Unknown, 08/28/18) Ugnjovg-Eki-Ygz Reductase Inhibitor (Verified Allergy, Unknown, 08/28/18) Uncoded Allergies "antidepressant" ( Allergy, Unknown, 08/28/18) SUICIDAL THOUGHTS PER PT Past Rltndro-Yxzpuk-Aszxde Hx Past Med/Social Hx: Reviewed Nursing Past Med/Soc Hx, Reviewed and Corrections made Patient Social History Marrital Status: Alcohol Use: Occasionally Uses Recreational Drug Use: No Smoking Status: Never a Smoker 2nd Hand Smoke Exposure: Yes Recent Foreign Travel: No Contact w/other who traveled: No Recent Hopitalizations: No Recent Infectious Disease Expo: No Immunizations Up To Date Date of Pneumonia Vaccine: Jan 03, 2018 Seasonal Allergies Seasonal Allergies: No Past Medical History Surgeries: Thyroidectomy Cardiac: High Cholesterol Endocrine: Diabetes, Insulin dep Cancer: Thyroid History of Blood Disorders: No Family History Drug use G8 SISTER FH: congestive heart failure 19 FATHER Hypertension 19 FATHER 19 MOTHER Neoplasm 19 MOTHER (KIDNEY CA) Respiratory disorder 19 MOTHER (COPD) Review of Systems Constitutional: see HPI, dizziness EENTM: nose congestion Respiratory: no symptoms reported Cardiovascular: chest pain Gastrointestinal: no symptoms reported Genitourinary: no symptoms reported Skin: no symptoms reported Psychiatric/Neurological: No Symptoms Reported All Other Systems Reviewed Negative Unless Noted: Yes Physical Exam Physical Exam Vital Signs Vital Signs - First Documented 08/28/18 08/28/18 12:26 14:25 Temp 97.8 Pulse 79 Resp 18 B/P (MAP) 131/79 (96) Pulse Ox 100 O2 Delivery Room Air Capillary Refill : Less Than 3 Seconds Height, Weight, BMI Height: 5'1.00" Weight: 203lbs. 7.0oz. 92.311466yb; 37.1 BMI Method:Stated General Appearance: No Apparent Distress, WD/WN, Anxious, Obese HEENT: PERRL/EOMI, TMs Normal Neck: Full Range of Motion, Normal Inspection Respiratory: Lungs Clear, Normal Breath Sounds, No Accessory Muscle Use, No Respiratory Distress Cardiovascular: Regular Rate, Rhythm, No Edema, Normal Peripheral Pulses Gastrointestinal: Normal Bowel Sounds, Non Tender, Soft Extremity: Normal Capillary Refill, Normal Inspection Neurologic/Psychiatric: Alert, Oriented x3, No Motor/Sensory Deficits, Normal Mood/Affect, crew person II-XII Norm as Tested Skin: Normal Color, Warm/Dry Results Results/Procedures Labs Laboratory Tests 08/28/18 11:55 08/29/18 03:15 Patient resulted labs reviewed. Assessment/Plan Assessment and Plan Assess & Plan/Chief Complaint Assessment: Chest pain r/o ACS per Cardiology DM Allergies Sinus congestion chronic Plan: DC home with close f/u [facility] Flonase restarted Diagnosis/Problems Diagnosis/Problems (1) Chest pain Status: Acute Qualifiers: Chest pain type: other chest pain Qualified Codes: R07.89 - Other chest pain (2) Diabetes mellitus Status: Chronic Qualifiers: Diabetes mellitus type: type 2 Diabetes mellitus fpc insulin use: with parts counterman use Diabetes mellitus complication status: without complication Qualified Codes: E11.9 - Type 2 diabetes mellitus without complications; Z79.4 - superintendent marine oil terminal (current) use of insulin (3) Obesity Status: Chronic Qualifiers: Obesity type: due to excess calories Obesity classification: adult class 2 (BMI 35 - 39.9) Serious obesity comorbidity presence: without serious comorbidity (4) Environmental allergies Status: Chronic (5) Elevated liver enzymes Status: Acute (6) GERD with esophagitis Status: Acute Clinical Quality Measures AMI/AHF: ASA po Prior to arrival: No DVT/VTE Risk/Contraindication: Risk Factor Score Per Nursin RFS Level Per Nursing on Admit: 4+=Very High MADHAV CHOWDHURY DO Aug 29, 2018 08:34
[2018-08-29] MEDS ORDERED: FLUTICASONE NASAL SPRAY (FLONASE) 16 GM BTL NS SCH (09:00)
[2018-08-29] MEDS ORDERED: PANTOPRAZOLE 40 MG (PROTONIX) TAB PO SCH (09:00)
[2018-08-29] MEDS ORDERED: ASPIRIN 81 MG CHEW (CHILDREN'S ASA) PO SCH (09:00)
[2018-08-29] MEDS ORDERED: PANTOPRAZOLE 40 MG (PROTONIX) VIAL IV SCH (09:00)
[2018-08-29] MEDS: hydrOXYzine (VISTARIL) 25 MG capsule/tablet PO PRN (10:33)
--- NOTE | 2018-08-29 11:58 | Progress Note-Cardiology ---
Cardiology SOAP Progress Note Subjective: Feels well today. Wishes to go home. Currently does not report any symptoms Objective: I&O/Vital Signs 08/29/18 08/29/18 08/29/18 08/29/18 00:00 00:00 00:45 01:00 Temp 97.3 Pulse 57 58 Resp 15 B/P (MAP) 88/50 (63) Pulse Ox 96 O2 Delivery Room Air Room Air 08/29/18 08/29/18 08/29/18 08/29/18 01:00 02:00 03:00 03:45 Temp 97.4 Pulse 58 71 74 Resp 13 14 17 B/P (MAP) 99/65 (76) 90/48 (62) 96/58 (71) Pulse Ox 98 96 95 O2 Delivery Room Air Room Air Room Air 08/29/18 08/29/18 08/29/18 08/29/18 04:00 04:00 05:00 06:00 Pulse 60 66 61 Resp 14 17 14 B/P (MAP) 94/52 (66) 96/51 (66) 98/49 (65) Pulse Ox 97 96 96 O2 Delivery Room Air Room Air Room Air Room Air 08/29/18 08/29/18 08/29/18 08/29/18 07:00 07:00 08:00 08:00 Pulse 75 68 72 Resp 25 14 B/P (MAP) 94/59 (71) 100/57 (71) Pulse Ox 97 97 O2 Delivery Room Air Room Air Room Air 08/29/18 08/29/18 08:00 09:00 Temp 97.7 Pulse 74 68 Resp 14 16 B/P (MAP) 100/57 (71) 93/61 (72) Pulse Ox 98 96 O2 Delivery Room Air Room Air 08/29/18 00:00 Intake Total 950 ml Output Total 300 ml Balance 650 ml Weight (Pounds): 203 Weight (Ounces): 7.0 Weight (Calculated Kilograms): 92.955232 Constitutional: AAO x 3, well-developed, well-nourished Respiratory: No accessory muscle use, No respiratory distress; chest expansion is symmetric, chest is bilaterally symmetric, lungs clear to auscultation Cardiovascular: regular rate-rhythm; No JVD; S1 and S2 Gastrointestional: No tender; soft, round, audible bowel sounds Extremities: no lower extremity edema bilateral Neurologic/Psychiatric: grossly intact, power is 5/5 both on sides Skin: No rash, No ulcerations Results/Procedures: Labs Laboratory Tests 08/28/18 11:55: White Blood Count 6.3, Red Blood Count 4.72, Hemoglobin 13.8, Hematocrit 41, Mean Corpuscular Volume 86, Mean Corpuscular Hemoglobin 29, Mean Corpuscular Hemoglobin Concent 34, Red Cell Distribution Width 12.5, Platelet Count 267, Mean Platelet Volume 10.4, Neutrophils (%) (Auto) 63, Lymphocytes (%) (Auto) 26 , Monocytes (%) (Auto) 9, Eosinophils (%) (Auto) 1, Basophils (%) (Auto) 1, Neutrophils # (Auto) 4.0, Lymphocytes # (Auto) 1.7, Monocytes # (Auto) 0.6, Eosinophils # (Auto) 0.1, Basophils # (Auto) 0.0, Erythrocyte Sedimentation Rate 14, Prothrombin Time 13.4, INR Comment 1.0, Activated Partial Thromboplast Time 29, D-Dimer 0.74H, Urine Color YELLOW, Urine Clarity SLIGHTLY CLOUDY, Urine pH 8, Urine Specific [place] 1.010L, Urine Protein NEGATIVE, Urine Glucose (UA) NEGATIVE, Urine Ketones NEGATIVE, Urine Nitrite NEGATIVE, Urine Bilirubin NEGATIVE, Urine Urobilinogen NORMAL, Urine Leukocyte Esterase NEGATIVE , Urine RBC (Auto) NEGATIVE, Urine RBC NONE, Urine WBC 0-2, Urine Squamous Epithelial Cells 0-2, Urine Crystals NONE, Urine Bacteria FEWH, Urine Casts NONE , Urine Mucus NEGATIVE, Urine Culture Indicated NO, Sodium Level 139, Potassium Level 4.0, Chloride Level 107, Carbon Dioxide Level 21, Anion Gap 11, Blood Urea Nitrogen 9, Creatinine 0.83, Estimat Glomerular Filtration Rate > 60, BUN/ Creatinine Ratio 11, Glucose Level 166H, Calcium Level 10.0, Corrected Calcium 9.6, Magnesium Level 2.1, Total Bilirubin 0.9, Aspartate Amino Transf (AST/SGOT ) 16, Alanine Aminotransferase (ALT/SGPT) 15, Alkaline Phosphatase 71, Myoglobin 28.5, Troponin I < 0.028, C-Reactive Protein High Sensitivity 0.11, B- Type Natriuretic Peptide 19.6, Total Protein 7.9, Albumin 4.5, Lipase 27, Urine Opiates Screen NEGATIVE, Urine Oxycodone Screen NEGATIVE, Urine Methadone Screen NEGATIVE, Urine Propoxyphene Screen NEGATIVE, Urine Barbiturates Screen NEGATIVE, Ur Tricyclic Antidepressants Screen NEGATIVE, Urine Phencyclidine Screen NEGATIVE, Urine Amphetamines Screen NEGATIVE, Urine Methamphetamines Screen NEGATIVE, Urine Benzodiazepines Screen NEGATIVE, Urine Cocaine Screen NEGATIVE, Urine Cannabinoids Screen NEGATIVE, Serum Alcohol < 10 08/28/18 15:09: Glucometer 140H 08/28/18 17:45: Troponin I < 0.028 08/28/18 18:24: Glucometer 195H 08/28/18 20:37: Glucometer 149H 08/29/18 03:15: White Blood Count 7.0, Red Blood Count 4.08L, Hemoglobin 11.9, Hematocrit 36, Mean Corpuscular Volume 87, Mean Corpuscular Hemoglobin 29, Mean Corpuscular Hemoglobin Concent 33, Red Cell Distribution Width 12.7, Platelet Count 233, Mean Platelet Volume 10.6H, Erythrocyte Sedimentation Rate 11, Sodium Level 138 , Potassium Level 3.8, Chloride Level 108H, Carbon Dioxide Level 20L, Anion Gap 10, Blood Urea Nitrogen 12, Creatinine 0.77, Estimat Glomerular Filtration Rate > 60, BUN/Creatinine Ratio 16, Glucose Level 89, Calcium Level 8.7, Corrected Calcium 9.0, Magnesium Level 2.2, Total Bilirubin 0.6, Aspartate Amino Transf ( AST/SGOT) 102H, Alanine Aminotransferase (ALT/SGPT) 79H, Alkaline Phosphatase 73 , Troponin I < 0.028, Total Protein 6.1L, Albumin 3.6, Triglycerides Level 43, Cholesterol Level 168, LDL Cholesterol Direct 89, VLDL Cholesterol 9, HDL Cholesterol 65H, Thyroid Stimulating Hormone (TSH) 0.99 08/29/18 06:42: Glucometer 118H 08/29/18 10:59: Glucometer 148H Laboratory Tests 08/28/18 11:55 08/29/18 03:15 A/P: Assessment: Chest pain of undetermined etiology - no evidence of PE, aortic dissection (on CT of 08-28-18) or ACS Possible bronchitis DM 2 Anxiety/Depression H/o cholecystectomy H/o renal stones HLD - reported intolerance to statin H/o thyroidectomy d/t thyroid cancer - thyroid replacement managed by her PCP Plan: * Continue previous home regimen * Dr Pham has seen the patient in Medical consultation and has not made any additional recommendations * We recommend f/u with pcp LUZ ELENA * We recommend card f/u in 1-2 weeks * We have advised return to ER for recurrent symptoms or new symptoms Clinical Quality Measures AMI/AHF: ASA po Prior to arrival: DILEEP Otero MD FACP FAC CCDS Aug 29, 2018 11:58
[2018-08-29] MEDS ORDERED: ASPI-999 PO (12:09)
[2018-08-29] MEDS ORDERED: AZIT250T12 PO (12:09)
[2018-08-29] MEDS ORDERED: PANT40TA3 PO (12:09)
--- NOTE | 2018-08-29 12:10 | Discharge Inst-Cardiology ---
Discharge Inst-Cardiac Discharge Medications New Medications: Aspirin (Aspirin) 81 Mg Tab.chew 81 MG PO DAILY@0900, #30 TAB 1 Refill Azithromycin (Azithromycin) 250 Mg Tablet 250 MG PO DAILY@1500 for 4 Days, #4 TAB Pantoprazole Sodium (Pantoprazole Sodium) 40 Mg Tablet.dr 40 MG PO DAILY, #30 TAB 1 Refill Continued Medications: Fluticasone Propionate (Flonase Allergy Relief) 9.9 Ml [place].susp 1-2 SPRAY NS DAILY 1-2 SPRAYS EACH NARE DAILY Hydroxyzine Pamoate (Hydroxyzine Pamoate) 50 Mg Capsule 50 MG PO TID PRN for ANXIETY Insulin Aspart (Novolog Flexpen) 300 Units/3 Ml Solution 0 SQ TIDAC GLUCOSE/DOSE 60-180/0 181-200/4 201-250/6 251-300/8 301-350/10 351-400/12 >400/CALL DOCTOR Insulin Detemir (Levemir Flextouch) 100 Unit/1 Ml Insuln.pen 12 UNITS SQ BID Levothyroxine Sodium (Synthroid) 150 Mcg Tablet 150 MCG PO DAILY TAKE ON AN EMPTY STOMACH Linagliptin (Tradjenta) 5 Mg Tablet 5 MG PO DAILY Lisinopril (Lisinopril) 2.5 Mg Tablet 2.5 MG PO DAILY Patient Instructions Patient Instructions: F/u with family physician LUZ ELENA F/u with Dr Hinson next week [facility]INSON [facility] CCDS Aug 29, 2018 12:10
[2018-08-29] MEDS ORDERED: AZITHROMYCIN 250 MG/NS 250 ML IVPB IV SCH ×2 (15:00)
[2018-08-29] MEDS ORDERED: AZITHROMYCIN 250 MG TAB (ZITHROMAX) PO SCH (15:00)
== END 2018-08-29 12:52 | disposition home or self-care (01) ==
LOC: ER 11:40 → ICU 13:49
PROVIDERS: ADMIT Internal Medicine Cardiovascular Disease; ATTEND Internal Medicine Cardiovascular Disease
DX: R07.9 Chest pain, unspecified (principal); E11.9 Type 2 diabetes mellitus without complications; F41.9 Anxiety disorder, unspecified; F32.9 Major depressive disorder, single episode, unspecified; E78.5 Hyperlipidemia, unspecified; E89.0 Postprocedural hypothyroidism; Z85.850 Personal history of malignant neoplasm of thyroid; Z87.442 Personal history of urinary calculi; Z88.0 Allergy status to penicillin; J30.9 Allergic rhinitis, unspecified; Z79.4 Long term (current) use of insulin; K21.0 Gastro-esophageal reflux disease with esophagitis; R74.8 Abnormal levels of other serum enzymes; J34.89 Other specified disorders of nose and nasal sinuses; Z79.899 Other long term (current) drug therapy
CPT/HCPCS: 36415; 71045; 71275; 80053; 80061; 80306; 80320; 81000; 82962; 83690; 83735; 83874; 83880; 84443; 84484; 85025; 85027; 85379; 85610; 85652; 85730; 86141; 87081; 93005; 93041; 93306; G0378

== ENCOUNTER 2018-09-08 08:31 | Day surgery (SDC) | payer BC, MEDICAID ==
[2018-09-08] VITALS (9 sets, daily range): BP systolic 106–141; BP diastolic 68–84
[~2018-09-08] VITALS: Ht 154.9 cm; Wt 91.2 kg
[~2018-09-08 08:31] MED LIST: ASPI-999 PO; AZIT250T12 PO; FLUT9.9S NS; HYDR50CA3 PO; INSU100I14 SQ; INSU100I29 SQ; LEVO150T PO; LINA5TAB PO; LISI2.5T PO; PANT40TA3 PO
[2018-09-08] MEDS ORDERED: LIDOCAINE 1% INJ 20 ML 20 ML VIAL ONE (08:35)
[2018-09-08] MEDS ORDERED: HEParin (CATH LAB) 2,000 ML IV ONE (08:35)
[2018-09-08] MEDS ORDERED: NS IV 1000 ML 1,000 ML ONE (08:35)
--- OUTSIDE RECORDS SUMMARY | 2018-09-08 08:38 | XMS REPORT | Continuity of Care Document ---
Author Organization Unknown Address Unknown Allergies Active Description Code Type Severity Reaction Onset Reported/Identified Relationship to Patient Clinical Status Yes "antidepressant" "antidepressant" Unknown N/A 08/28/2018 Yes Penicillins [id number] Drug Allergy Unknown N/A 08/28/2018 Yes Sltwfyl-Mnp-Vby Reductase Inhibitor [id number] Drug Allergy Unknown N/A Medications There is no data. Problems Date Dx Coded Attending Type Code Diagnosis Diagnosed By 08/27/2013 ARCHANA ATWOOD DO 250.00 DIABETES MELLITUS TYPE 2 08/27/2013 ARCHANA ATWOOD DO 278.00 OBESITY 08/27/2013 ARCHANA ATWOOD DO 250.00 DIABETES MELLITUS TYPE 2 08/27/2013 ARCHANA ATWOOD DO 278.00 OBESITY 08/27/2013 ARLEY BRUMFIELD APRN N 250.00 DIABETES MELLITUS TYPE 2 08/27/2013 ARLEY BRUMFILED APRN N 278.00 OBESITY 08/27/2013 JUAN ANDERSON DDS B 250.00 DIABETES MELLITUS TYPE 2 08/27/2013 MONICA EPHRAIM, JUAN B 278.00 OBESITY 08/27/2013 ARCHANA ATWOOD DO 250.00 DIABETES MELLITUS TYPE 2 08/27/2013 ARCHANA ATWOOD DO 278.00 OBESITY 08/27/2013 TOBY MILLS APRN 250.00 DIABETES MELLITUS TYPE 2 08/27/2013 TOBY MILLS APRN 278.00 OBESITY 12/06/2013 ARCHANA ATWOOD DO 272.4 HYPERLIPIDEMIA 12/06/2013 ARLEY BRUMFIELD APRN N 272.4 HYPERLIPIDEMIA 12/06/2013 MONICAJUAN Pinzon DDS B 272.4 HYPERLIPIDEMIA 12/06/2013 ARCHANA ATWOOD DO 272.4 HYPERLIPIDEMIA 12/06/2013 TOBY MILLS APRN 272.4 HYPERLIPIDEMIA 01/05/2014 ARLEY BRUMFIELD APRN N 599.0 URINARY TRACT INFECTION 01/05/2014 TAURUS FUNES APRN ARLEY N 788.1 DYSURIA 01/05/2014 TAURUS FUNES APRSylvester ARLEY N 788.41 URINARY FREQUENCY 01/05/2014 MONICA DDS, JUAN B 599.0 URINARY TRACT INFECTION 01/05/2014 MONICA DDS, JUAN B 788.1 DYSURIA 01/05/2014 MONICA DDS, JUAN B 788.41 URINARY FREQUENCY 01/05/2014 ATWOOD SHIREEN DIMASA K 599.0 URINARY TRACT INFECTION 01/05/2014 ATWOOD DOSHIREENA K 788.1 DYSURIA 01/05/2014 ATWOOD DOSHIREENA K 788.41 URINARY FREQUENCY 01/05/2014 TOBY MILLS APRN 599.0 URINARY TRACT INFECTION 01/05/2014 TOBY MILLS APRN 788.1 DYSURIA 01/05/2014 TOBY MILLS APRN 788.41 URINARY FREQUENCY 04/04/2014 ARCHANA ATWOOD DO 244.0 POSTSURGICAL HYPOTHYROIDISM 04/04/2014 TOBY MILLS APRN 244.0 POSTSURGICAL HYPOTHYROIDISM Procedures Code [place] [address] ROUTINE VENIPUNCTURE 08/27/2013 93063 CMP 08/27/2013 93338 LIPID PANEL 08/27/2013 68794 CULTURE URINE 08/27/2013 THYANA THYROID ANALYZER 08/27/2013 94733 A1C (IN-HOUSE) 08/27/2013 91617 MICRO ALBUMIN-IN HOUSE 08/27/2013 61758 A1C (IN-HOUSE) 12/06/2013 35149 UA LONG DIP 01/05/2014 37252 THERAPUTIC INJ SQ/IM 01/05/2014 J0696 ROCEPHIN INJ 1 g 01/05/2014 78233 CULTURE URINE 01/07/2014 77884 A1C (IN-HOUSE) 04/04/2014 Results Test Result Range [facility] - 03/28/17 10:42 GLUCOSE 256 mg/dL 65-99 UREA NITROGEN (BUN) 11 mg/dL 7-25 CREATININE 0.82 mg/dL 0.50-1.10 eGFR NON-AFR. B[place]IAN 87 mL/min/1.73m2 > OR=60 eGFR 101 mL/min/1.73m2 [...] AST 18 U/L 10-30 ALT 17 U/L 6- CMP - 07/04/17 09:29 GLUCOSE 179 mg/dL 65-99 UREA NITROGEN (BUN) 13 mg/dL 7-25 CREATININE 0.68 mg/dL 0.50-1.10 eGFR NON-AFR. [place]IAN 106 mL/min/1.73m2 > OR=60 eGFR 123 mL/min/1.73m2 > OR=60 BUN/CREATININE RATIO NOT APPLICABLE (calc) 6- SODIUM 139 mmol/L 135-146 POTASSIUM 4.7 mmol/L 3.5-5.3 CHLORIDE 105 mmol/L 98-110 CARBON DIOXIDE 23 mmol/L 20-31 CALCIUM 9.1 mg/dL 8.6-10.2 PROTEIN, TOTAL 6.9 g/dL 6.1-8.1 ALBUMIN 4.0 g/dL 3.6-5.1 GLOBULIN 2.9 g/dL (calc) 1.9-3.7 ALBUMIN/GLOBULIN RATIO 1.4 (calc) 1.0-2.5 BILIRUBIN, TOTAL 0.4 mg/dL 0.2-1.2 ALKALINE PHOSPHATASE 85 U/L 33-115 AST 12 U/L 10-30 ALT 11 U/L 6 CULTURE, URINE - 10/07/17 09:40 CULTURE, URINE, ROUTINE SEE NOTE NRG Complete blood count (CBC) with automated white blood cell (WBC) differential - 08/28/18 11:55 Blood leukocytes automated count (number/volume) 6.3 10*3/uL 4.3-11.0 Blood erythrocytes automated count (number/volume) 4.72 10*6/uL 4.35-5.85 Venous blood hemoglobin measurement (mass/volume) 13.8 g/dL 11.5-16.0 Blood hematocrit (volume fraction) 41 % 35-52 Automated erythrocyte mean corpuscular volume 86 [foz_us] 80-99 Automated erythrocyte mean corpuscular hemoglobin (mass per erythrocyte) 29 pg 25-34 Automated erythrocyte mean corpuscular hemoglobin concentration measurement ( mass/volume) 34 g/dL 32-36 Automated erythrocyte distribution width ratio 12.5 % 10.0-14.5 Automated blood platelet count (count/volume) 267 10*3/uL 130-400 Automated blood platelet mean volume measurement 10.4 [foz_us] 7.4-10.4 Automated blood neutrophils/100 leukocytes 63 % 42-75 Automated blood lymphocytes/100 leukocytes 26 % 12-44 Blood monocytes/100 leukocytes 9 % 0-12 Automated blood eosinophils/100 leukocytes 1 % 0-10 Automated blood basophils/100 leukocytes 1 % 0-10 Blood neutrophils automated count (number/volume) 4.0 10*3 1.8-7.8 Blood lymphocytes automated count (number/volume) 1.7 10*3 1.0-4.0 Blood monocytes automated count (number/volume) 0.6 10*3 0.0-1.0 Automated eosinophil count 0.1 10*3/uL 0.0-0.3 Automated blood basophil count (count/volume) 0.0 10*3/uL 0.0-0.1 PT panel in platelet poor plasma by coagulation assay - 08/28/18 11:55 Prothrombin time (PT) in platelet poor plasma by coagulation assay 13.4 s 12.2-14.7 INR in platelet poor plasma or blood by coagulation assay 1.0 0.8-1.4 Activated partial thromboplastin time (aPTT) in platelet poor plasma bycoagulation assay - 08/28/18 11:55 Activated partial thromboplastin time (aPTT) in platelet poor plasma bycoagulation assay 29 s 24-35 Fibrin D-dimer FEU measurement in platelet poor plasma (mass/volume) - 11:55 Fibrin D-dimer FEU measurement in platelet poor plasma (mass/volume) 0.74 ug/mL 0.00-0.49 Comprehensive metabolic panel - 08/28/18 11:55 Serum or plasma sodium measurement (moles/volume) 139 mmol/L 135-145 Serum or plasma potassium measurement (moles/volume) 4.0 mmol/L 3.6-5.0 Serum or plasma chloride measurement (moles/volume) 107 mmol/L 98-107 Carbon dioxide 21 mmol/L 21-32 Serum or plasma anion gap determination (moles/volume) 11 mmol/L 5-14 Serum or plasma urea nitrogen measurement (mass/volume) 9 mg/dL 7-18 Serum or plasma creatinine measurement (mass/volume) 0.83 mg/dL 0.60-1.30 Serum or plasma urea nitrogen/creatinine mass ratio 11 NRG Serum or plasma creatinine measurement with calculation of estimated glomerular filtration rate > NRG Serum or plasma glucose measurement (mass/volume) 166 mg/dL 70-105 Serum or plasma calcium measurement (mass/volume) 10.0 mg/dL 8.5-10.1 Serum or plasma total bilirubin measurement (mass/volume) 0.9 mg/dL 0.1-1.0 Serum or plasma alkaline phosphatase measurement (enzymatic activity/volume) 71 U/L 40-136 Serum or plasma aspartate aminotransferase measurement (enzymatic activity/ volume) 16 U/L 5-34 Serum or plasma alanine aminotransferase measurement (enzymatic activity/volume ) 15 U/L 0-55 Serum or plasma protein measurement (mass/volume) 7.9 g/dL 6.4-8.2 Serum or plasma albumin measurement (mass/volume) 4.5 g/dL 3.2-4.5 CALCIUM CORRECTED 9.6 mg/dL 8.5-10.1 Magnesium - 08/28/18 11:55 Magnesium 2.1 mg/dL 1.8-2.4 Serum or plasma troponin i.cardiac measurement (mass/volume) - 08/28/18 11:55 Serum or plasma troponin i.cardiac measurement (mass/volume) < ng/ mL <0.028 Myoglobin, serum - 08/28/18 11:55 Myoglobin, serum 28.5 ng/mL 10.0-92.0 Lipase - 08/28/18 11:55 Lipase 27 U/L 8-78 Serum or plasma lithium measurement (moles/volume) - 08/28/18 11:55 BNP level 19.6 pg/mL <100.0 Serum or plasma C reactive protein measurement (mass/volume) - 08/28/18 11:55 Serum or plasma C reactive protein measurement (mass/volume) 0.11 mg /dL 0.00-0.50 Serum or plasma ethanol measurement (mass/volume) - 08/28/18 11:55 Serum or plasma ethanol measurement (mass/volume) < mg/dL <10 Complete urinalysis with reflex to culture - 08/28/18 11:55 Urine color determination YELLOW NRG Urine clarity determination SLIGHTLY CLOUDY NRG Urine pH measurement by test strip 8 5-9 Specific gravity of urine by test strip 1.010 1.016- 1.022 Urine protein assay by test strip, semi-quantitative NEGATIVE NEGATIVE Urine glucose detection by automated test strip NEGATIVE NEGATIVE Erythrocytes detection in urine sediment by light microscopy NEGATIVE NEGATIVE Urine ketones detection by automated test strip NEGATIVE NEGATIVE Urine nitrite detection by test strip NEGATIVE NEGATIVE Urine total bilirubin detection by test strip NEGATIVE NEGATIVE Urine urobilinogen measurement by automated test strip (mass/volume) NORMAL NORMAL Urine leukocyte esterase detection by dipstick NEGATIVE NEGATIVE Automated urine sediment erythrocyte count by microscopy (number/high power field) NONE NRG Automated urine sediment leukocyte count by microscopy (number/high power field ) [HPF] NRG Bacteria detection in urine sediment by light microscopy FEW NRG Squamous epithelial cells detection in urine sediment by light microscopy 0-2 NRG Crystals detection in urine sediment by light microscopy NONE NRG Casts detection in urine sediment by light microscopy NONE NRG Mucus detection in urine sediment by light microscopy NEGATIVE NRG Complete urinalysis with reflex to culture NO NRG Urine drug screening test - 08/28/18 11:55 Urine phencyclidine detection by screening method NEGATIVE NEGATIVE Urine benzodiazepines detection by screening method NEGATIVE NEGATIVE Urine cocaine detection NEGATIVE NEGATIVE Urine amphetamines detection by screening method NEGATIVE NEGATIVE Urine methamphetamine detection by screening method NEGATIVE NEGATIVE Urine cannabinoids detection by screening method NEGATIVE NEGATIVE Urine opiates detection by screening method NEGATIVE NEGATIVE Urine barbiturates detection NEGATIVE NEGATIVE Screening urine tricyclic antidepressants detection NEGATIVE NEGATIVE Urine methadone detection by screening method NEGATIVE NEGATIVE Urine oxycodone detection NEGATIVE NEGATIVE Urine propoxyphene detection NEGATIVE NEGATIVE Erythrocyte sedimentation rate by westergren method - 08/28/18 11:55 Erythrocyte sedimentation rate by westergren method 14 mm 0-20 Capillary blood glucose measurement by glucometer (mass/volume) - 08/28/18 15: 09 Capillary blood glucose measurement by glucometer (mass/volume) 140 mg/dL 70-110 Serum or plasma troponin i.cardiac measurement (mass/volume) - 08/28/18 17:45 Serum or plasma troponin i.cardiac measurement (mass/volume) < ng/ mL <0.028 Capillary blood glucose measurement by glucometer (mass/volume) - 08/28/18 18: 24 Capillary blood glucose measurement by glucometer (mass/volume) 195 mg/dL 70-110 Capillary blood glucose measurement by glucometer (mass/volume) - 08/28/18 20: 37 Capillary blood glucose measurement by glucometer (mass/volume) 149 mg/dL 70-110 Automated blood complete blood count (hemogram) panel - 08/29/18 03:15 Blood leukocytes automated count (number/volume) 7.0 10*3/uL 4.3-11.0 Blood erythrocytes automated count (number/volume) 4.08 10*6/uL 4.35-5.85 Venous blood hemoglobin measurement (mass/volume) 11.9 g/dL 11.5-16.0 Blood hematocrit (volume fraction) 36 % 35-52 Automated erythrocyte mean corpuscular volume 87 [foz_us] 80-99 Automated erythrocyte mean corpuscular hemoglobin (mass per erythrocyte) 29 pg 25-34 Automated erythrocyte mean corpuscular hemoglobin concentration measurement ( mass/volume) 33 g/dL 32-36 Automated erythrocyte distribution width ratio 12.7 % 10.0-14.5 Automated blood platelet count (count/volume) 233 10*3/uL 130-400 Automated blood platelet mean volume measurement 10.6 [foz_us] 7.4-10.4 Erythrocyte sedimentation rate by westergren method - 08/29/18 03:15 Erythrocyte sedimentation rate by westergren method 11 mm 0-20 Comprehensive metabolic panel - 08/29/18 03:15 Serum or plasma sodium measurement (moles/volume) 138 mmol/L 135-145 Serum or plasma potassium measurement (moles/volume) 3.8 mmol/L 3.6-5.0 Serum or plasma chloride measurement (moles/volume) 108 mmol/L 98-107 Carbon dioxide 20 mmol/L 21-32 Serum or plasma anion gap determination (moles/volume) 10 mmol/L 5-14 Serum or plasma urea nitrogen measurement (mass/volume) 12 mg/dL 7-18 Serum or plasma creatinine measurement (mass/volume) 0.77 mg/dL 0.60-1.30 Serum or plasma urea nitrogen/creatinine mass ratio 16 NRG Serum or plasma creatinine measurement with calculation of estimated glomerular filtration rate > NRG Serum or plasma glucose measurement (mass/volume) 89 mg/dL 70-105 Serum or plasma calcium measurement (mass/volume) 8.7 mg/dL 8.5-10.1 Serum or plasma total bilirubin measurement (mass/volume) 0.6 mg/dL 0.1-1.0 Serum or plasma alkaline phosphatase measurement (enzymatic activity/volume) 73 U/L 40-136 Serum or plasma aspartate aminotransferase measurement (enzymatic activity/ volume) 102 U/L 5-34 Serum or plasma alanine aminotransferase measurement (enzymatic activity/volume ) 79 U/L 0-55 Serum or plasma protein measurement (mass/volume) 6.1 g/dL 6.4-8.2 Serum or plasma albumin measurement (mass/volume) 3.6 g/dL 3.2-4.5 CALCIUM CORRECTED 9.0 mg/dL 8.5-10.1 Magnesium - 08/29/18 03:15 Magnesium 2.2 mg/dL 1.8-2.4 Lipid 1996 panel - 08/29/18 03:15 Serum or plasma triglyceride measurement (mass/volume) 43 mg/dL <150 Serum or plasma cholesterol measurement (mass/volume) 168 mg/dL < 200 Serum or plasma cholesterol in HDL measurement (mass/volume) 65 mg/ dL 40-60 Cholesterol in LDL [mass/volume] in serum or plasma by direct assay 89 mg/dL 1-129 Serum or plasma cholesterol in VLDL measurement (mass/volume) 9 mg/ dL 5-40 THYROID STIMULATING HORMONE - 08/29/18 03:15 THYROID STIMULATING HORMONE 0.99 u[iU]/mL 0.35-4.94 Encounters ACCT No. Visit Date/Time Discharge Status Pt. Type Provider Facility Loc./Unit Complaint [id number] 07/12/2014 08:03:00 07/12/2014 23:59:59 CLS Outpatient TOBY MILLS APRN [id number] 04/04/2014 15:35:00 04/04/2014 23:59:59 CLS Outpatient ARCHANA ATWOOD DO [id number] 03/15/2014 07:22:00 03/15/2014 23:59:59 CLS Outpatient JUAN ANDERSON DDS [id number] 01/05/2014 09:11:00 01/05/2014 23:59:59 CLS Outpatient ARLEY BRUMFIELD APRN Sylvester [id number] 12/06/2013 15:36:00 12/06/2013 23:59:59 CLS Outpatient ARCHANA ATWOOD DO [id number] 08/27/2013 09:01:00 08/27/2013 23:59:59 [place] [id number] 08/28/2018 10:00:00 08/28/2018 23:59:59 CLS Outpatient TOBY MILLS APRN [facility] [id number] 10/07/2017 08:40:00 Document Registration [id number] 07/04/2017 09:00:00 Document Registration [id number] 03/28/2017 10:00:00 Document Registration [id number] 08/28/2018 13:49:00 ACT Inpatient DESHAWN MURRAY FACC, DILEEP SEBASTIAN CCDS [facility] ICU CHEST PAIN
[2018-09-08] MEDS ORDERED: NS IV 1000 ML 1,000 ML IV SCH ×2 (08:45→10:10)
[2018-09-08 08:56] LABS: HEMOGLOBIN 13.4 G/DL (11.5-16.0); MEAN PLATELET VOLUME 10.6 FL (7.4-10.4); RED CELL DISTRIBUTION WIDTH 12.1 % (10.0-14.5); WHITE BLOOD COUNT 6.6 10^3/uL (4.3-11.0)
[2018-09-08] MEDS ORDERED: ASPI-999 PO (09:02)
[2018-09-08] MEDS ORDERED: COLE625T9 PO (09:02)
[2018-09-08] MEDS ORDERED: PANT40TA2 PO (09:02)
[2018-09-08] MEDS ORDERED: NAPR-1033 PO (09:02)
[2018-09-08 09:08] LABS: INR 0.9 (0.8-1.4)
[2018-09-08] MEDS ORDERED: fentaNYL INJECTION 100 MCG/2 ML AMP ONE (09:11)
[2018-09-08] MEDS ORDERED: MIDAZOLAM 5 MG/5 ML (VERSED) VIAL ONE (09:11)
[2018-09-08 09:15] LABS: ALANINE AMINOTRANSFERASE 32 U/L (0-55); ALBUMIN 4.5 GM/DL (3.2-4.5); ALKALINE PHOSPHATASE 87 U/L (40-136); BILIRUBIN,TOTAL 0.6 MG/DL (0.1-1.0); BUN/CREATININE RATIO 23; CARBON DIOXIDE 24 MMOL/L (21-32); CHLORIDE 104 MMOL/L (98-107); CHOLESTEROL 221 MG/DL (< 200); CREATININE SERUM 0.88 MG/DL (0.60-1.30); GFR ESTIMATED > 60; GLUCOSE 179 MG/DL (70-105); HDL CHOLESTEROL 79 MG/DL (40-60); POTASSIUM 3.6 MMOL/L (3.6-5.0); SODIUM 137 MMOL/L (135-145); TOTAL PROTEIN 7.9 GM/DL (6.4-8.2); TRIGLYCERIDES 53 MG/DL (<150); VLDL CHOLESTEROL 11 MG/DL (5-40)
--- NOTE | 2018-09-08 09:29 | Cardiac Procedure Note-CS/ASA ---
Pre-Procedure Note Pre-Op Procedure Note H&P Reviewed The H&P was reviewed, patient examined and no changes noted. Date H&P Reviewed: September 08, 2018 Time H&P Reviewed: 09:28 Conscious Sedation Pre-Proced Time 09:28 ASA Score 3 For ASA 3 and 4: Consider anesthesia and medical clearance. Also, for patients with a history of failed moderate sedation consider anesthesia. Airway Lungs Heart ASA score ASA 1: a normal healthy patient ASA 2: a patient with a mild systemic disease (mid diabetes, controlled hypertension, obesity ASA 3: a patient with a severe systemic disease that limits activity (angina , COPD, prior Myocardial infarction) ASA 4: a patient with an incapacitating disease that is a constant threat to life (CHF, renal failure) ASA 5: a moribund patient not expected to survive 24 hrs. (ruptured aneurysm) ASA 6: a declared brain- patient whose organs are being harvested. For emergent operations, add the letter E after the classification Mallampati Classification Grade 2 Sedation Plan Analgesia, Amnesia, Plan communicated to team members, Discussed options with patient/fam, Discussed risks with patient/fam The patient is an appropriate candidate to undergo the planned procedure, sedation, and anesthesia. The patient immediately re-assessed prior to indication. DILEEP HESS MD FACP FAC CCDS September 08, 2018 09:28
--- NOTE | 2018-09-08 10:13 | Discharge Inst-Post CATH ---
Discharge Inst-CATH/EP Post Cardiac Cath/EP D/C Inst Follow Up/Plan F/u with Dr Hinson in 2 weeks <b>CARDIAC CATH/EP PROCEDURE DISCHARGE INSTRUCTIONS</b> ACTIVITY * Go Home directly and rest. * Limit activity of the leg (or wrist if it was used) for 7 days including aerobics, swimming, jogging, bicycling, etc. * Restrict stair-climbing for 7 days if possible, if not, climb up with your non -cath leg, then bring together on the same step. * Avoid lifting, pushing, pulling or excessive movement of the affected extremity for 7 days. * Customary sexual activity may be resumed after 2 days-use caution not to use a position that strains or causes pain to the affected extremity. * No driving for 24 hours. * NO SMOKING. * Avoid straining for bowel movements for 7 days. * Gentle walking on level ground is allowed. * Returning to work will depend on the type of procedure and the results. Your doctor will discuss this with you. CALL YOUR DOCTOR FOR ANY OF THE FOLLOWING: *If bleeding from the puncture site occurs- Apply gentle pressure to site with clean cloth and call your doctor or EMS. * If a knot or lump forms under the skin, increases in size, or causes pain. * If bruising appears to be worsening or moving further down your leg instead of disappearing. * Temperature above 101 F. CARE OF YOUR GROIN INCISION; * Bruising or purple discoloration of the skin near the puncture site is common. * You may shower only, no bathtub bathing for 5 days. Be careful to avoid slipping as your leg may feel stiff. * If a closure device was used on your femoral artery, please see the attached guide regarding care of the device and your leg. * Leave dressing on FOR 24 hours. CARE OF YOUR WRIST INCISION; * Bruising or purple discoloration of the skin near the puncture site is common. * You may shower. * DO NOT submerge wrist. * Leave dressing on FOR 24 hours. DILEEP HINSON MD FAC FAC CCDS September 08, 2018 10:13
--- NOTE | 2018-09-08 10:13 | Discharge Inst-Cardiology ---
Discharge Inst-Cardiac Discharge Medications Continued Medications: Colesevelam HCl (Welchol) 625 Mg Tablet 1875 MG PO BID WITH MEALS, TAB Fluticasone Propionate (Flonase Allergy Relief) 9.9 Ml [place].susp 1-2 SPRAY NS DAILY 1-2 SPRAYS EACH NARE DAILY Hydroxyzine Pamoate (Hydroxyzine Pamoate) 50 Mg Capsule 50 MG PO TID PRN for ANXIETY Insulin Aspart (Novolog Flexpen) 300 Units/3 Ml Solution 0 SQ TIDAC GLUCOSE/DOSE 60-180/0 181-200/4 201-250/6 251-300/8 301-350/10 351-400/12 >400/CALL DOCTOR Insulin Detemir (Levemir Flextouch) 100 Unit/1 Ml Insuln.pen 12 UNITS SQ BID Levothyroxine Sodium (Synthroid) 150 Mcg Tablet 150 MCG PO DAILY TAKE ON AN EMPTY STOMACH Linagliptin (Tradjenta) 5 Mg Tablet 5 MG PO DAILY Lisinopril (Lisinopril) 2.5 Mg Tablet 2.5 MG PO DAILY Pantoprazole Sodium (Protonix) 40 Mg Tablet.dr 40 MG PO DAILY, TAB Discontinued Medications: Aspirin (Aspirin) 81 Mg Tab.chew 81 MG PO DAILY, TAB Naproxen Sodium (Naproxen Sodium) 220 Mg Tablet 220 MG PO PRN PRN for PAIN-MILD, TAB DILEEP HESS MD FACP FAC CCDS September 08, 2018 10:13
[2018-09-08] MEDS ORDERED: PATIENT MAY USE OWN MEDS, ALL PO SCH (10:15)
--- NOTE | 2018-09-08 12:31 | CARDIAC CATHETERIZATION ---
DATE OF SERVICE: CARDIAC CATHETERIZATION The patient is a 43-year-old lady with coronary artery disease risk factors and symptoms of angina pectoris. She continues to have frequent symptoms and is worried that these are coming from her heart. Cardiac catheterization was carried out today after having obtained an informed consent. DESCRIPTION OF PROCEDURE: She was brought to the cardiac catheterization laboratory in a fasting state. Right groin was prepared and draped in the usual sterile fashion. A 1% lidocaine used for local anesthesia. Modified Seldinger technique was used to advance a [place] sheath in the right femoral artery, [place] JL4 catheter for left coronary angiography, [place] JR4 catheter for right coronary angiography, [place] pigtail catheter was used for left heart catheterization, left ventricular angiography. Pigtail was pulled back to the aortic root and aortic root angiography was performed. Pigtail was removed. Angiography of the right femoral artery was carried out through the sheath. Mynx was used to achieve hemostasis. She tolerated the procedure well. HEMODYNAMICS: Left ventricular end-diastolic pressure following coronary angiography was 15 mmHg. There is no significant pressure gradient on pullback across the aortic valve. Ascending aortic pressure was 125/69 with a mean of 93 mmHg. CORONARY ANGIOGRAPHY: Left main coronary artery, left anterior descending artery, left circumflex artery, right coronary artery are all angiographically normal. Right coronary artery is dominant. LEFT VENTRICULAR ANGIOGRAPHY: Left ventricular angiography was carried out in the right anterior oblique projection. Global left ventricular systolic function normal. No regional wall motion abnormalities are seen. Left ventricular ejection fraction is 60% to 65%. AORTIC ROOT ANGIOGRAPHY: Aortic root angiography did not indicate any significant aortic root aneurysm or dissection. No aortic regurgitation is seen. Aortic valve leaflets show good co-aptation. Coronary arteries are identified and exhibit normal flow. CONCLUSIONS: 1. No angiographically significant coronary artery disease. 2. Normal global left ventricular systolic function with ejection fraction of 60% to 65%. 3. Left ventricular end-diastolic pressure is approximately 15 mmHg following coronary angiography. DISCUSSION AND RECOMMENDATIONS: Based on results of the study, chest discomfort does not appear to be of cardiac origin. Continuing risk factor modification is advised. Outpatient followup is advised. Job ID: [id number] DocumentID: [id number] Dictated Date: 09/08/2018 10:06:30 Finish Opener Date: 09/08/2018 12:30:31 Dictated By: DILEEP HESS MD, MA, FACP, FACC, MTDD
== END 2018-09-08 13:40 | disposition home or self-care (01) ==
LOC: CATH 08:31 → SDC 10:50 → CATH 13:40
PROVIDERS: ATTEND Internal Medicine Cardiovascular Disease
DX: R07.89 Other chest pain (principal); R00.2 Palpitations; E11.9 Type 2 diabetes mellitus without complications; E78.5 Hyperlipidemia, unspecified; F41.9 Anxiety disorder, unspecified; F32.9 Major depressive disorder, single episode, unspecified; E89.0 Postprocedural hypothyroidism; E66.9 Obesity, unspecified; Z68.38 Body mass index [BMI] 38.0-38.9, adult; Z79.4 Long term (current) use of insulin; Z79.899 Other long term (current) drug therapy
CPT/HCPCS: 36415; 80053; 80061; 85027; 85610; 85730; 87081; 93458; 93567

== ENCOUNTER → 2019-02-12 | Outpatient (CLI) | payer BC, MEDICAID ==
[~2019-02-12] MED LIST changes: +COLE625T9 PO; +NAPR-1033 PO; +PANT40TA2 PO; +RT-ALBUTEROL SULF 2.5 MG/3 ML PRE-MIX VIAL INH ONE; +RT-ALBUTEROL SULF 2.5 MG/3 ML PRE-MIX VIAL ONE
== END ==
LOC: RT 10:22
PROVIDERS: ATTEND Nurse Practitioner Family
DX: J30.9 Allergic rhinitis, unspecified (principal); G47.10 Hypersomnia, unspecified; R00.2 Palpitations
CPT/HCPCS: 94060; 94726; 94729